=== PATIENT | male | born 1945 | race Caucasian/White ===

== ENCOUNTER 2017-09-18 11:13 | Inpatient (IN) | payer MEDICARE, OTHER ==
[2017-09-18] VITALS (7 sets, daily range): BP systolic 102–108; BP diastolic 54–61
[~2017-09-18] VITALS: Ht 167.6 cm; Wt 57.8 kg
[2017-09-18] MEDS: naloxone 2mg/2ml inj IV STA ×2 (11:39→11:48)
[2017-09-18] MEDS ORDERED: rocuronium 10mg/ml inj IV ONE ×2 (12:00→12:50)
[2017-09-18] MEDS ORDERED: naloxone 2mg/2ml inj IV STA (12:07)
[2017-09-18] MEDS ORDERED: naloxone 2mg/2ml inj ONE (12:11)
[2017-09-18 12:14] LABS: BASOPHILS % (AUTO) 0.3 % (0-1); EOSINOPHILS % (AUTO) 0 % (0-6); HEMATOCRIT 31.2 % (42.0-52.0); HEMOGLOBIN 10.4 g/dl (14.0-17.9); LYMPHOCYTES # (AUTO) 0.5 X10'3 (1.1-4.8); LYMPHOCYTES % (AUTO) 3.5 % (21-51); MEAN CORPUSCULAR HEMOGLOBIN 30.1 PG (27.0-31.0); MEAN CORPUSCULAR HGB CONC 33.3 % (33.0-36.5); MEAN CORPUSCULAR VOLUME 90.3 FL (78-98); MEAN PLATELET VOLUME 10.1 FL (7.4-10.4); MONOCYTES # (AUTO) 0.3 X10'3 (0-0.9); MONOCYTES % (AUTO) 2.6 % (2-12); NEUTROPHILS # (AUTO) 12.2 X10'3 (1.8-7.7); NEUTROPHILS % (AUTO) 93.6 % (42-75); PLATELET COUNT 167 X10'3 (140-440); RED BLOOD COUNT 3.46 X10'6 (4.70-6.10); RED CELL DISTRIBUTION WIDTH 14.4 % (11.5-14.5)
[2017-09-18] MEDS ORDERED: levoFLOXACIN-Levaquin 750MG/D5 150 ML IV STA (12:14)
[2017-09-18 12:19] LABS: INR 2.1 INR; PARTIAL THROMBOPLASTIN TIME 29 SECONDS (22-32); PROTHROMBIN TIME 20.9 SECONDS (9.0-12.0)
[2017-09-18 12:21] LABS: CLARITY,URINE CLEAR (Clear); GLUCOSE, URINE NEGATIVE (Neg); KETONES,URINE TRACE mg/dl (Neg); LEUKOCYTE ESTERASE ,URINE NEGATIVE (Neg); NITRITES, URINE NEGATIVE (Neg); OCCULT BLOOD,URINE LARGE (Neg); PROTEIN,URINE 100 mg/dl (Neg)
[2017-09-18 12:24] LABS: UA COLLECTION TYPE STRAIGHT CATH
[2017-09-18 12:25] LABS: COLOR,URINE DARK YELLOW (Yellow)
[2017-09-18 12:28] LABS: WBC,URINE 0-4 /HPF (0-4)
[2017-09-18 12:29] LABS: AMORPHOUS URATES 3+; BACTERIA,URINE FEW /HPF (Neg); MUCUS STRANDS NONE SEEN /LPF (Neg); SQUAMOUS EPITHELIAL CELL,UR FEW /LPF (FEW)
[2017-09-18] MEDS ORDERED: TETanus/Pertussis (Acell)/Diphther VAC/PF (Tdap-Adult) 0.5ml syringe IM ONE (12:30)
[2017-09-18] MEDS ORDERED: CefTRIAXone 1 gm/50ml D5W ADV 50 ML IV ONE (12:35)
[2017-09-18 12:47] LABS: ALBUMIN 3.2 G/DL (3.4-5.0); ALBUMIN/GLOBULIN RATIO 0.9 (1.1-1.5); ALKALINE PHOSPHATASE 115 IU/L (46-116); ANION GAP 20 (8-16); BILIRUBIN,TOTAL 1.5 MG/DL (0.1-1.0); BLOOD UREA NITROGEN 63 MG/DL (7-18); BUN/CREATININE RATIO 18.7 (5.4-32.0); CALCIUM 7.5 MG/DL (8.5-10.1); CHLORIDE 98 MMOL/L (99-107); CREATININE 3.37 MG/DL (0.60-1.10); GLUCOSE 87 MG/DL (70-104); POTASSIUM 4.8 MMOL/L (3.5-5.1); SODIUM 140 MMOL/L (135-145); TOTAL CARBON DIOXIDE 22.4 MMOL/L (24-32); TOTAL PROTEIN 6.7 G/DL (6.4-8.2); eGFR 18 ML/MIN
[2017-09-18] MEDS ORDERED: etomidate 2mg/ml inj. IV ONE (12:50)
[2017-09-18 12:57] LABS: URINE AMPHETAMINE SCREEN NEGATIVE (Neg); URINE BARBITUATE SCREEN NEGATIVE (Neg); URINE BENZODIAZEPINES SCREEN POSITIVE (Neg); URINE CANNABINOID SCREEN NEGATIVE (Neg); URINE COCAINE SCREEN NEGATIVE (Neg); URINE METHADONE SCREEN POSITIVE (Neg); URINE OPIATE SCREEN NEGATIVE (Neg); URINE PHENCYCLIDINE SCREEN NEGATIVE (Neg)
[2017-09-18] MEDS ORDERED: normal saline 1000ml 1,000 ML IV ONE (13:00)
[2017-09-18 13:09] LABS: LACTIC SEPSIS 6.8 MMOL/L (0.4-2.0)
[2017-09-18 13:11] LABS: ALANINE AMINOTRANSFERASE 4931 U/L (12-78); ASPARTATE AMINO TRANSFERASE > 7000 U/L (10-37)
[2017-09-18 13:12] LABS: ETHANOL < 0.010 GM/DL (0.0-0.010); MAGNESIUM 2.4 MG/DL (1.5-2.4)
[2017-09-18] MEDS ORDERED: normal saline 1000ML IV soln IVB ONE (13:15)
[2017-09-18] MEDS ORDERED: midazolam 100mg in NS 100ml 100 ML IV ONE (13:15)
[2017-09-18 13:40] LABS: ABG BASE EXCESS -0.6 mmol/L (-2.0-3.0); ABG HCO3 22.1 mmol/L (22.0-26.0); ABG PCO2 (T) 30.7 mmHg (35.0-48.0); ABG PH (T) 7.476 (7.350-7.450); ABG PO2 (T) 211.8 mmHg (83-108); FCOHb 0.2 % (0.5-1.5); FMetHb 0.3 % (0.3-1.12); FO2Hb 98.5 % (94-100); MINUTE VOLUME 7 L/min; PEEP 5 cm H2O; RESPIRATORY RATE 18 b/min; TIDAL VOLUME 400 mL; TOTAL HEMOGLOBIN 11.9 G/dl (14.0-18.0)
[2017-09-18] MEDS ORDERED: magnesium Cl slow-release 64mg tablet PO PRN (13:55)
[2017-09-18] MEDS ORDERED: mag hydrox/Alum hydrox/simeth 30ml oral suspension PO PRN (13:55)
[2017-09-18] MEDS ORDERED: magnesium 2GM in 50ml NS 50 ML IV PRN (13:55)
[2017-09-18] MEDS ORDERED: potassium Cl 20 mEq SR tablet PO PRN ×2 (13:55)
[2017-09-18] MEDS ORDERED: magnesium 4gm in 100ml NS 100 ML IV PRN (13:55)
[2017-09-18] MEDS ORDERED: potassium Cl 40MEQ/NS 500ml 500 ML IV PRN ×2 (13:55)
[2017-09-18] MEDS ORDERED: diphenhydrAMINE 25mg capsule PO PRN (13:55)
[2017-09-18] MEDS ORDERED: midazolam 100mg in NS 100ml 100 ML IV PRN (13:59)
[2017-09-18] MEDS: FENTANYL-0.9 % NACL/PF 100 ML IV PRN ×2 (15:07→23:08)
[2017-09-18] MEDS: normal saline 1000ml 1,000 ML IV SCH (16:05)
[2017-09-18] MEDS ORDERED: KEP500T PO (18:31)
[2017-09-18] MEDS ORDERED: METH5TAB2 PO (18:31)
[2017-09-18] MEDS ORDERED: OXYC-658 PO (18:31)
[2017-09-18] MEDS ORDERED: FURO-150 PO (18:31)
[2017-09-18] MEDS ORDERED: DULO60CA45 PO (18:31)
[2017-09-18] MEDS ORDERED: heparin, porcine 5000 units/ml vial SQ SCH (20:00)
[2017-09-18] MEDS: heparin, porcine 5000 units/ml vial SQ SCH (20:00)
[2017-09-18] MEDS ORDERED: normal saline 500ml IV soln 1,000 ML IV ONE (21:30)
[2017-09-19] VITALS (24 sets, daily range): BP systolic 86–135; BP diastolic 47–71
[2017-09-19 01:52] LABS: BASOPHILS % (AUTO) 0.5 % (0-1); EOSINOPHILS # (AUTO) 0.1 X10'3 (0-0.9); EOSINOPHILS % (AUTO) 0.9 % (0-6); HEMATOCRIT 25.9 % (42.0-52.0); HEMOGLOBIN 8.9 g/dl (14.0-17.9); LYMPHOCYTES # (AUTO) 0.4 X10'3 (1.1-4.8); LYMPHOCYTES % (AUTO) 6.5 % (21-51); MEAN CORPUSCULAR HEMOGLOBIN 30.5 PG (27.0-31.0); MEAN CORPUSCULAR HGB CONC 34.3 % (33.0-36.5); MEAN CORPUSCULAR VOLUME 89.1 FL (78-98); MEAN PLATELET VOLUME 9.3 FL (7.4-10.4); MONOCYTES # (AUTO) 0.1 X10'3 (0-0.9); MONOCYTES % (AUTO) 1.8 % (2-12); NEUTROPHILS # (AUTO) 6.1 X10'3 (1.8-7.7); NEUTROPHILS % (AUTO) 90.3 % (42-75); PLATELET COUNT 102 X10'3 (140-440); RED BLOOD COUNT 2.91 X10'6 (4.70-6.10); RED CELL DISTRIBUTION WIDTH 13.3 % (11.5-14.5); WHITE BLOOD COUNT 6.7 X10'3 (4.5-11.0)
[2017-09-19 02:01] LABS: PARTIAL THROMBOPLASTIN TIME 31 SECONDS (22-32); PROTHROMBIN TIME 20.6 SECONDS (9.0-12.0)
[2017-09-19 02:08] LABS: ALBUMIN 2.5 G/DL (3.4-5.0); ALBUMIN/GLOBULIN RATIO 0.9 (1.1-1.5); ALKALINE PHOSPHATASE 98 IU/L (46-116); ANION GAP 8 (8-16); BILIRUBIN,TOTAL 1.1 MG/DL (0.1-1.0); BLOOD UREA NITROGEN 67 MG/DL (7-18); BUN/CREATININE RATIO 25.7 (5.4-32.0); CALCIUM 6.7 MG/DL (8.5-10.1); CHLORIDE 108 MMOL/L (99-107); CREATININE 2.61 MG/DL (0.60-1.10); GLUCOSE 88 MG/DL (70-104); MAGNESIUM 2.2 MG/DL (1.5-2.4); POTASSIUM 3.3 MMOL/L (3.5-5.1); SODIUM 145 MMOL/L (135-145); TOTAL CARBON DIOXIDE 28.8 MMOL/L (24-32); TOTAL PROTEIN 5.2 G/DL (6.4-8.2); eGFR 24 ML/MIN
[2017-09-19 02:34] LABS: ASPARTATE AMINO TRANSFERASE > 7000 U/L (10-37)
[2017-09-19 02:35] LABS: ALANINE AMINOTRANSFERASE 5245 U/L (12-78)
[2017-09-19] MEDS ORDERED: calcium gluconate inj. 1 GM in normal saline 100ml IV soln 90 ML IV ONE (02:35)
[2017-09-19] MEDS ORDERED: potassium Cl 40MEQ/NS 500ml 500 ML IV ONE (02:40)
[2017-09-19] MEDS ORDERED: calcium chloride 100 MG/1 ML inj IV ONE (02:40)
[2017-09-19] MEDS ORDERED: calcium gluconate 0.46mEq/mL (100mg/mL) inj IV ONE (02:41)
[2017-09-19] MEDS: normal saline 1000ml 1,000 ML IV SCH ×3 (02:59→19:58)
[2017-09-19] MEDS: FENTANYL-0.9 % NACL/PF 100 ML IV PRN ×3 (03:03→17:56)
[2017-09-19] MEDS: midazolam 100mg in NS 100ml 100 ML IV PRN (03:03)
[2017-09-19 03:40] LABS: ALLEN'S TEST Positive; PATIENT TEMPERATURE 36.9
[2017-09-19 03:41] LABS: ABG BASE EXCESS 0.6 mmol/L (-2.0-3.0); ABG HCO3 24.7 mmol/L (22.0-26.0); ABG OXYGEN SATURATION 94.9 % (95-98); ABG PCO2 (T) 37.3 mmHg (35.0-48.0); ABG PH (T) 7.437 (7.350-7.450); ABG PO2 (T) 82.7 mmHg (83-108); FCOHb 0.3 % (0.5-1.5); FMetHb 0.1 % (0.3-1.12); FO2Hb 94.5 % (94-100); MINUTE VOLUME 8 L/min; PEEP 5 cm H2O; RESPIRATORY RATE 14 b/min; RESPIRATORY RATE (OBSERVED) 16 b/min; TIDAL VOLUME 450 mL; TOTAL HEMOGLOBIN 9.7 G/dl (14.0-18.0)
[2017-09-19] MEDS: levoFLOXACIN-Levaquin 500mg/D5 100 ML IV SCH (07:20)
[2017-09-19] MEDS: CefTRIAXone 1 gm/50ml D5W ADV 50 ML IV SCH (07:20)
[2017-09-19] MEDS: K and/or MAG REPLACEMENT MC SCH (07:21)
[2017-09-19] MEDS ORDERED: azithromycin/NS 500mg/250ml 250 ML IV SCH (08:00)
[2017-09-19] MEDS ORDERED: pneumococcal 23-VAL P-sac vacc 25 mcg/0.5ml vial IMVAC ONE (10:00)
[2017-09-19] MEDS: heparin, porcine 5000 units/ml vial SQ SCH ×2 (11:15→19:58)
[2017-09-19] MEDS ORDERED: pantoprazole 40 MG vial IV ONE (14:00)
[2017-09-19] MEDS: mineral oil/petrolatum ophthal oint EACHEYE SCH ×2 (14:05→19:59)
[2017-09-19 19:18] LABS: ALBUMIN 2.4 G/DL (3.4-5.0); ANION GAP 7 (8-16); BLOOD UREA NITROGEN 64 MG/DL (7-18); BUN/CREATININE RATIO 30.6 (5.4-32.0); CALCIUM 7.6 MG/DL (8.5-10.1); CHLORIDE 112 MMOL/L (99-107); CREATININE 2.09 MG/DL (0.60-1.10); GLUCOSE 83 MG/DL (70-104); POTASSIUM 3.5 MMOL/L (3.5-5.1); SODIUM 148 MMOL/L (135-145); TOTAL CARBON DIOXIDE 28.7 MMOL/L (24-32); eGFR 31 ML/MIN
[2017-09-19] MEDS: levetiracetam 250mg tablet PO SCH (19:59)
[2017-09-19 20:58] LABS: BASOPHILS % (AUTO) 0.2 % (0-1); EOSINOPHILS # (AUTO) 0.3 X10'3 (0-0.9); EOSINOPHILS % (AUTO) 5.9 % (0-6); HEMOGLOBIN 9.6 g/dl (14.0-17.9); LYMPHOCYTES # (AUTO) 0.4 X10'3 (1.1-4.8); LYMPHOCYTES % (AUTO) 6.7 % (21-51); MEAN CORPUSCULAR HEMOGLOBIN 29.8 PG (27.0-31.0); MEAN CORPUSCULAR HGB CONC 33.1 % (33.0-36.5); MEAN PLATELET VOLUME 9.1 FL (7.4-10.4); MONOCYTES # (AUTO) 0.3 X10'3 (0-0.9); MONOCYTES % (AUTO) 5.3 % (2-12); NEUTROPHILS # (AUTO) 4.5 X10'3 (1.8-7.7); NEUTROPHILS % (AUTO) 81.9 % (42-75); PLATELET COUNT 104 X10'3 (140-440); RED BLOOD COUNT 3.22 X10'6 (4.70-6.10); RED CELL DISTRIBUTION WIDTH 14.6 % (11.5-14.5); WHITE BLOOD COUNT 5.5 X10'3 (4.5-11.0)
[2017-09-19 21:11] LABS: TROPONIN I 0.06 NG/ML (0.0-0.05)
[2017-09-19 21:25] LABS: ABG BASE EXCESS -0.6 mmol/L (-2.0-3.0); ABG OXYGEN SATURATION 87.5 % (95-98); ABG PH (T) 7.398 (7.350-7.450); ABG PO2 (T) 56.5 mmHg (83-108); ALLEN'S TEST Positive; FCOHb 0.2 % (0.5-1.5); FO2Hb 87.3 % (94-100); MINUTE VOLUME 9 L/min; PATIENT TEMPERATURE 37.4; PEEP 5 cm H2O; RESPIRATORY RATE 14 b/min; RESPIRATORY RATE (OBSERVED) 17 b/min; TIDAL VOLUME 450 mL; TOTAL HEMOGLOBIN 10.5 G/dl (14.0-18.0)
[2017-09-19] MEDS ORDERED: furosemide 40mg/4ml inj IV ONE (21:30)
[2017-09-20] VITALS (24 sets, daily range): BP systolic 93–138; BP diastolic 49–69
[2017-09-20] MEDS: FENTANYL-0.9 % NACL/PF 100 ML IV PRN ×3 (00:39→17:07)
[2017-09-20] MEDS: midazolam 100mg in NS 100ml 100 ML IV PRN ×2 (00:39→19:43)
[2017-09-20] MEDS: mineral oil/petrolatum ophthal oint EACHEYE SCH ×4 (02:00→20:38)
[2017-09-20 02:31] LABS: ABG BASE EXCESS -1.6 mmol/L (-2.0-3.0); ABG HCO3 23.1 mmol/L (22.0-26.0); ABG OXYGEN SATURATION 94.7 % (95-98); ABG PCO2 (T) 39.8 mmHg (35.0-48.0); ABG PH (T) 7.384 (7.350-7.450); ABG PO2 (T) 80.9 mmHg (83-108); ALLEN'S TEST Positive; FCOHb 0.2 % (0.5-1.5); FO2Hb 94.5 % (94-100); MINUTE VOLUME 8 L/min; PATIENT TEMPERATURE 37.5; PEEP 5 cm H2O; RESPIRATORY RATE 14 b/min; RESPIRATORY RATE (OBSERVED) 16 b/min; TIDAL VOLUME 450 mL; TOTAL HEMOGLOBIN 10.5 G/dl (14.0-18.0)
[2017-09-20 03:38] LABS: BASOPHILS % (AUTO) 0 % (0-1); EOSINOPHILS # (AUTO) 0.3 X10'3 (0-0.9); EOSINOPHILS % (AUTO) 4.7 % (0-6); HEMATOCRIT 29.2 % (42.0-52.0); HEMOGLOBIN 9.6 g/dl (14.0-17.9); LYMPHOCYTES # (AUTO) 0.3 X10'3 (1.1-4.8); LYMPHOCYTES % (AUTO) 5.1 % (21-51); MEAN CORPUSCULAR HEMOGLOBIN 30.1 PG (27.0-31.0); MEAN CORPUSCULAR HGB CONC 32.9 % (33.0-36.5); MEAN CORPUSCULAR VOLUME 91.2 FL (78-98); MEAN PLATELET VOLUME 9.2 FL (7.4-10.4); MONOCYTES # (AUTO) 0.4 X10'3 (0-0.9); MONOCYTES % (AUTO) 5.5 % (2-12); NEUTROPHILS # (AUTO) 5.5 X10'3 (1.8-7.7); NEUTROPHILS % (AUTO) 84.7 % (42-75); PLATELET COUNT 101 X10'3 (140-440); RED CELL DISTRIBUTION WIDTH 14.6 % (11.5-14.5); WHITE BLOOD COUNT 6.5 X10'3 (4.5-11.0)
[2017-09-20 03:49] LABS: INR 1.5 INR; PARTIAL THROMBOPLASTIN TIME 31 SECONDS (22-32); PROTHROMBIN TIME 15.2 SECONDS (9.0-12.0)
[2017-09-20 04:00] LABS: ALANINE AMINOTRANSFERASE 3292 U/L (12-78); ALBUMIN 2.5 G/DL (3.4-5.0); ALBUMIN/GLOBULIN RATIO 0.9 (1.1-1.5); ALKALINE PHOSPHATASE 104 IU/L (46-116); ANION GAP 8 (8-16); ASPARTATE AMINO TRANSFERASE 2402 U/L (10-37); BILIRUBIN,TOTAL 1.9 MG/DL (0.1-1.0); BLOOD UREA NITROGEN 59 MG/DL (7-18); BUN/CREATININE RATIO 30.3 (5.4-32.0); CALCIUM 7.8 MG/DL (8.5-10.1); CHLORIDE 112 MMOL/L (99-107); CREATININE 1.95 MG/DL (0.60-1.10); GLUCOSE 100 MG/DL (70-104); MAGNESIUM 1.9 MG/DL (1.5-2.4); PHOSPHORUS 2.5 MG/DL (2.3-4.5); POTASSIUM 3.6 MMOL/L (3.5-5.1); PREALBUMIN 10.1 MG/DL (19-36); SODIUM 147 MMOL/L (135-145); TOTAL CARBON DIOXIDE 27.4 MMOL/L (24-32); TOTAL PROTEIN 5.4 G/DL (6.4-8.2); TROPONIN I 0.04 NG/ML (0.0-0.05); eGFR 34 ML/MIN
[2017-09-20] MEDS: normal saline 1000ml 1,000 ML IV SCH ×2 (04:37→17:08)
[2017-09-20] MEDS ORDERED: potassium Cl 40MEQ/NS 500ml 500 ML IV ONE (04:50)
[2017-09-20] MEDS: K and/or MAG REPLACEMENT MC SCH (08:00)
[2017-09-20] MEDS: CefTRIAXone 1 gm/50ml D5W ADV 50 ML IV SCH (08:44)
[2017-09-20] MEDS: levoFLOXACIN-Levaquin 500mg/D5 100 ML IV SCH (08:44)
[2017-09-20] MEDS: pantoprazole 40 MG vial IV SCH (08:45)
[2017-09-20] MEDS: heparin, porcine 5000 units/ml vial SQ SCH ×2 (08:45→20:38)
[2017-09-20] MEDS: duloxetine 30mg CAPSULE.DR PO SCH (08:45)
[2017-09-20] MEDS: levetiracetam 250mg tablet PO SCH ×2 (08:45→20:38)
[2017-09-20] MEDS: methadone 10mg tablet PO SCH (08:45)
[2017-09-20 16:50] LABS: MAGNESIUM 1.7 MG/DL (1.5-2.4); PHOSPHORUS 2.2 MG/DL (2.3-4.5); POTASSIUM 3.5 MMOL/L (3.5-5.1)
[2017-09-21] VITALS (24 sets, daily range): BP systolic 113–142; BP diastolic 50–72
[2017-09-21] MEDS: FENTANYL-0.9 % NACL/PF 100 ML IV PRN (00:26)
[2017-09-21] MEDS: normal saline 1000ml 1,000 ML IV SCH ×2 (01:51→12:09)
[2017-09-21 02:46] LABS: ABG BASE EXCESS 0.6 mmol/L (-2.0-3.0); ABG HCO3 25.4 mmol/L (22.0-26.0); ABG OXYGEN SATURATION 92.7 % (95-98); ABG PCO2 (T) 43.6 mmHg (35.0-48.0); ABG PH (T) 7.387 (7.350-7.450); ABG PO2 (T) 70.6 mmHg (83-108); FCOHb 0.2 % (0.5-1.5); FO2Hb 92.5 % (94-100); MINUTE VOLUME 8 L/min; PATIENT TEMPERATURE 38.2; PEEP 5 cm H2O; RESPIRATORY RATE 12 b/min; RESPIRATORY RATE (OBSERVED) 16 b/min; TIDAL VOLUME 450 mL; TOTAL HEMOGLOBIN 9.9 G/dl (14.0-18.0)
[2017-09-21] MEDS: mineral oil/petrolatum ophthal oint EACHEYE SCH ×4 (03:23→21:05)
[2017-09-21 03:35] LABS: BASOPHILS % (AUTO) 0 % (0-1); EOSINOPHILS # (AUTO) 0.3 X10'3 (0-0.9); EOSINOPHILS % (AUTO) 5.9 % (0-6); HEMATOCRIT 26.3 % (42.0-52.0); HEMOGLOBIN 8.7 g/dl (14.0-17.9); LYMPHOCYTES # (AUTO) 0.4 X10'3 (1.1-4.8); LYMPHOCYTES % (AUTO) 6.6 % (21-51); MEAN CORPUSCULAR HEMOGLOBIN 30.2 PG (27.0-31.0); MEAN CORPUSCULAR VOLUME 91.4 FL (78-98); MONOCYTES # (AUTO) 0.5 X10'3 (0-0.9); MONOCYTES % (AUTO) 7.8 % (2-12); NEUTROPHILS # (AUTO) 4.6 X10'3 (1.8-7.7); NEUTROPHILS % (AUTO) 79.7 % (42-75); PLATELET COUNT 70 X10'3 (140-440); RED BLOOD COUNT 2.88 X10'6 (4.70-6.10); RED CELL DISTRIBUTION WIDTH 14.8 % (11.5-14.5); WHITE BLOOD COUNT 5.8 X10'3 (4.5-11.0)
[2017-09-21 03:47] LABS: INR 1.3 INR; PARTIAL THROMBOPLASTIN TIME 33 SECONDS (22-32)
[2017-09-21 03:55] LABS: ALANINE AMINOTRANSFERASE 1892 U/L (12-78); ALBUMIN 2.1 G/DL (3.4-5.0); ALBUMIN/GLOBULIN RATIO 0.7 (1.1-1.5); ALKALINE PHOSPHATASE 98 IU/L (46-116); ANION GAP 5 (8-16); ASPARTATE AMINO TRANSFERASE 675 U/L (10-37); BILIRUBIN,TOTAL 2.4 MG/DL (0.1-1.0); BLOOD UREA NITROGEN 51 MG/DL (7-18); BUN/CREATININE RATIO 33.1 (5.4-32.0); CALCIUM 8.1 MG/DL (8.5-10.1); CHLORIDE 116 MMOL/L (99-107); CREATININE 1.54 MG/DL (0.60-1.10); GLUCOSE 124 MG/DL (70-104); MAGNESIUM 1.6 MG/DL (1.5-2.4); PHOSPHORUS 1.8 MG/DL (2.3-4.5); POTASSIUM 3.7 MMOL/L (3.5-5.1); SODIUM 149 MMOL/L (135-145); TOTAL CARBON DIOXIDE 28.1 MMOL/L (24-32); eGFR 45 ML/MIN
[2017-09-21] MEDS: heparin, porcine 5000 units/ml vial SQ SCH ×3 (08:00→21:06)
[2017-09-21] MEDS: pantoprazole 40 MG vial IV SCH (08:10)
[2017-09-21] MEDS: methadone 10mg tablet PO SCH (08:10)
[2017-09-21] MEDS: levoFLOXACIN-Levaquin 500mg/D5 100 ML IV SCH (08:10)
[2017-09-21] MEDS: duloxetine 30mg CAPSULE.DR PO SCH (08:10)
[2017-09-21] MEDS: levetiracetam 250mg tablet PO SCH ×2 (08:11→21:05)
[2017-09-21] MEDS: K and/or MAG REPLACEMENT MC SCH (08:28)
[2017-09-21] MEDS: CefTRIAXone 1 gm/50ml D5W ADV 50 ML IV SCH (10:06)
[2017-09-21] MEDS ORDERED: sodium phosphate inj. 15 MMOL in dextrose 5%-water 150 ML IV PRN (10:19)
[2017-09-21] MEDS ORDERED: sodium phosphate inj. 30 MMOL in dextrose 5%-water 250 ML IV PRN (10:19)
[2017-09-21] MEDS ORDERED: potassium phosphate inj 15 MMOL in normal saline 250ml IV soln 245 ML IV ONE ×2 (10:55→23:10)
[2017-09-21] MEDS: furosemide 40mg/4ml inj IV SCH (15:47)
[2017-09-21] MEDS ORDERED: albumin (human) 25% 100 ML IV solution IV SCH (16:00)
[2017-09-21 16:10] LABS: ANION GAP 5 (8-16); BLOOD UREA NITROGEN 53 MG/DL (7-18); BUN/CREATININE RATIO 37.3 (5.4-32.0); CHLORIDE 115 MMOL/L (99-107); CREATININE 1.42 MG/DL (0.60-1.10); GLUCOSE 127 MG/DL (70-104); POTASSIUM 3.6 MMOL/L (3.5-5.1); SODIUM 147 MMOL/L (135-145); eGFR 49 ML/MIN
[2017-09-21 16:11] LABS: ALANINE AMINOTRANSFERASE 1618 U/L (12-78); ALBUMIN 2.2 G/DL (3.4-5.0); ALBUMIN/GLOBULIN RATIO 0.7 (1.1-1.5); ALKALINE PHOSPHATASE 107 IU/L (46-116); ASPARTATE AMINO TRANSFERASE 425 U/L (10-37); TOTAL PROTEIN 5.4 G/DL (6.4-8.2)
[2017-09-21 17:36] LABS: ABG BASE EXCESS -0.4 mmol/L (-2.0-3.0); ABG HCO3 23.4 mmol/L (22.0-26.0); ABG OXYGEN SATURATION 91.3 % (95-98); ABG PCO2 (T) 34.7 mmHg (35.0-48.0); ABG PH (T) 7.446 (7.350-7.450); ABG PO2 (T) 56.7 mmHg (83-108); ALLEN'S TEST Positive; FCOHb 0.6 % (0.5-1.5); FMetHb 0.3 % (0.3-1.12); FO2Hb 90.5 % (94-100); MINUTE VOLUME 10 L/min; RESPIRATORY RATE (OBSERVED) 18 b/min; TOTAL HEMOGLOBIN 10.2 G/dl (14.0-18.0)
[2017-09-21 19:24] LABS: BASOPHILS % (AUTO) 0.2 % (0-1); EOSINOPHILS # (AUTO) 0.4 X10'3 (0-0.9); HEMATOCRIT 27.3 % (42.0-52.0); LYMPHOCYTES # (AUTO) 0.5 X10'3 (1.1-4.8); LYMPHOCYTES % (AUTO) 6.7 % (21-51); MEAN CORPUSCULAR HEMOGLOBIN 30.1 PG (27.0-31.0); MEAN CORPUSCULAR VOLUME 91.4 FL (78-98); MONOCYTES # (AUTO) 0.6 X10'3 (0-0.9); MONOCYTES % (AUTO) 8.7 % (2-12); NEUTROPHILS # (AUTO) 5.9 X10'3 (1.8-7.7); NEUTROPHILS % (AUTO) 79.4 % (42-75); PLATELET COUNT 61 X10'3 (140-440); RED BLOOD COUNT 2.99 X10'6 (4.70-6.10); RED CELL DISTRIBUTION WIDTH 15.1 % (11.5-14.5); WHITE BLOOD COUNT 7.4 X10'3 (4.5-11.0)
[2017-09-21 19:42] LABS: ALANINE AMINOTRANSFERASE 1388 U/L (12-78); ALBUMIN 2.8 G/DL (3.4-5.0); ALBUMIN/GLOBULIN RATIO 0.9 (1.1-1.5); ALKALINE PHOSPHATASE 101 IU/L (46-116); ANION GAP 4 (8-16); ASPARTATE AMINO TRANSFERASE 318 U/L (10-37); BILIRUBIN,TOTAL 3.4 MG/DL (0.1-1.0); BLOOD UREA NITROGEN 53 MG/DL (7-18); BUN/CREATININE RATIO 36.3 (5.4-32.0); CALCIUM 8.2 MG/DL (8.5-10.1); CHLORIDE 114 MMOL/L (99-107); CREATININE 1.46 MG/DL (0.60-1.10); GLUCOSE 120 MG/DL (70-104); MAGNESIUM 1.6 MG/DL (1.5-2.4); POTASSIUM 3.4 MMOL/L (3.5-5.1); SODIUM 149 MMOL/L (135-145); TOTAL PROTEIN 5.8 G/DL (6.4-8.2); eGFR 47 ML/MIN
[2017-09-21] MEDS ORDERED: magnesium 2GM in 50ml NS 50 ML IV PRN (20:00)
[2017-09-21] MEDS ORDERED: magnesium 4gm in 100ml NS 100 ML IV PRN (20:00)
[2017-09-21] MEDS ORDERED: potassium Cl 20 mEq SR tablet PO PRN ×2 (20:00)
[2017-09-21] MEDS ORDERED: magnesium Cl slow-release 64mg tablet PO PRN (20:00)
[2017-09-21] MEDS ORDERED: potassium Cl 40MEQ/250ML bag 250 ML IV PRN ×2 (20:00)
[2017-09-21] MEDS ORDERED: potassium Cl 40MEQ/NS 500ml 500 ML IV PRN ×2 (20:00)
[2017-09-21] MEDS: lactobacillus rhamnosus 10,000 MMU CELLS/CAPSULE PO SCH (21:05)
[2017-09-21 23:15] LABS: TROPONIN I 0.04 NG/ML (0.0-0.05)
[2017-09-22] VITALS (24 sets, daily range): BP systolic 111–136; BP diastolic 6–67
[2017-09-22 00:16] LABS: OXYGEN SATURATION (MIXED VEN) 72.7 % (60-80); PO2 MIXED VENOUS (TEMP COR) 37.4 mmHg (35-46)
[2017-09-22 00:20] LABS: ABG BASE EXCESS 1.1 mmol/L (-2.0-3.0); ABG HCO3 24.9 mmol/L (22.0-26.0); ABG OXYGEN SATURATION 96.8 % (95-98); ABG PCO2 (T) 36.9 mmHg (35.0-48.0); ABG PH (T) 7.448 (7.350-7.450); FCOHb 0.4 % (0.5-1.5); FMetHb 0.1 % (0.3-1.12); FO2Hb 96.3 % (94-100); MINUTE VOLUME 9 L/min; PATIENT TEMPERATURE 37.3; PEEP 5 cm H2O; RESPIRATORY RATE 0 b/min; RESPIRATORY RATE (OBSERVED) 11 b/min; TIDAL VOLUME 716 mL; TOTAL HEMOGLOBIN 9.5 G/dl (14.0-18.0)
[2017-09-22] MEDS ORDERED: atropine 1 MG/1 ML vial IV ONE (00:50)
[2017-09-22] MEDS: atropine 0.1mg/ml 10ml syringe ONE ×2 (01:01→01:03)
[2017-09-22] MEDS: mineral oil/petrolatum ophthal oint EACHEYE SCH ×4 (02:00→21:02)
[2017-09-22 03:35] LABS: ABG BASE EXCESS 2.1 mmol/L (-2.0-3.0); ABG HCO3 25.7 mmol/L (22.0-26.0); ABG OXYGEN SATURATION 97.5 % (95-98); ABG PCO2 (T) 36.1 mmHg (35.0-48.0); ABG PO2 (T) 96.3 mmHg (83-108); FCOHb 0.3 % (0.5-1.5); FMetHb 0.3 % (0.3-1.12); FO2Hb 96.9 % (94-100); MINUTE VOLUME 9 L/min; PATIENT TEMPERATURE 37.1; PEEP 5 cm H2O; RESPIRATORY RATE 0 b/min; RESPIRATORY RATE (OBSERVED) 13 b/min; TIDAL VOLUME 696 mL; TOTAL HEMOGLOBIN 9.5 G/dl (14.0-18.0)
[2017-09-22 04:14] LABS: BASOPHILS % (AUTO) 0.6 % (0-1); EOSINOPHILS # (AUTO) 0.5 X10'3 (0-0.9); EOSINOPHILS % (AUTO) 6.3 % (0-6); HEMATOCRIT 27.2 % (42.0-52.0); HEMOGLOBIN 8.9 g/dl (14.0-17.9); LYMPHOCYTES # (AUTO) 0.6 X10'3 (1.1-4.8); LYMPHOCYTES % (AUTO) 8.4 % (21-51); MEAN CORPUSCULAR HEMOGLOBIN 29.7 PG (27.0-31.0); MEAN CORPUSCULAR HGB CONC 32.7 % (33.0-36.5); MEAN CORPUSCULAR VOLUME 90.9 FL (78-98); MONOCYTES # (AUTO) 0.7 X10'3 (0-0.9); MONOCYTES % (AUTO) 9.7 % (2-12); NEUTROPHILS # (AUTO) 5.6 X10'3 (1.8-7.7); PLATELET COUNT 56 X10'3 (140-440); RED BLOOD COUNT 2.99 X10'6 (4.70-6.10); RED CELL DISTRIBUTION WIDTH 15.3 % (11.5-14.5); WHITE BLOOD COUNT 7.5 X10'3 (4.5-11.0)
[2017-09-22] MEDS ORDERED: atropine 0.1mg/ml 10ml syringe IV ONE (04:30)
[2017-09-22] MEDS ORDERED: atropine 0.1mg/ml 10ml syringe ONE (04:31)
[2017-09-22 04:32] LABS: ALANINE AMINOTRANSFERASE 1160 U/L (12-78); ALBUMIN 2.6 G/DL (3.4-5.0); ALBUMIN/GLOBULIN RATIO 0.8 (1.1-1.5); ALKALINE PHOSPHATASE 91 IU/L (46-116); ANION GAP 5 (8-16); ASPARTATE AMINO TRANSFERASE 220 U/L (10-37); BILIRUBIN,TOTAL 2.7 MG/DL (0.1-1.0); BLOOD UREA NITROGEN 48 MG/DL (7-18); BUN/CREATININE RATIO 36.4 (5.4-32.0); CALCIUM 8.5 MG/DL (8.5-10.1); CHLORIDE 115 MMOL/L (99-107); CREATININE 1.32 MG/DL (0.60-1.10); GLUCOSE 96 MG/DL (70-104); MAGNESIUM 1.5 MG/DL (1.5-2.4); PHOSPHORUS 2.1 MG/DL (2.3-4.5); POTASSIUM 3.7 MMOL/L (3.5-5.1); SODIUM 150 MMOL/L (135-145); TOTAL CARBON DIOXIDE 30.2 MMOL/L (24-32); TOTAL PROTEIN 5.7 G/DL (6.4-8.2); eGFR 53 ML/MIN
[2017-09-22 04:41] LABS: INR 1.2 INR; PROTHROMBIN TIME 12.5 SECONDS (9.0-12.0)
[2017-09-22] MEDS ORDERED: K and/or MAG REPLACEMENT MC SCH (08:00)
[2017-09-22] MEDS: K and/or MAG REPLACEMENT MC SCH (08:00)
[2017-09-22] MEDS: duloxetine 30mg CAPSULE.DR PO SCH (08:16)
[2017-09-22] MEDS: pantoprazole 40 MG vial IV SCH (08:17)
[2017-09-22] MEDS: levetiracetam 250mg tablet PO SCH ×2 (08:17→21:00)
[2017-09-22] MEDS: CefTRIAXone 1 gm/50ml D5W ADV 50 ML IV SCH (08:17)
[2017-09-22] MEDS: lactobacillus rhamnosus 10,000 MMU CELLS/CAPSULE PO SCH ×2 (08:17→21:00)
[2017-09-22] MEDS: furosemide 40mg/4ml inj IV SCH ×3 (08:17→16:08)
[2017-09-22] MEDS: thiamine inj. 100 MG, magnesium sulf injection 2 GM, MVI, adult No.4 with vit. K 10 ML ... IV SCH ×4 (08:19)
[2017-09-22] MEDS ORDERED: metoclopramide 5 mg/ml inj IV PRN (09:30)
[2017-09-22] MEDS: heparin, porcine 5000 units/ml vial SQ SCH ×2 (09:33→21:01)
[2017-09-22] MEDS ORDERED: metoclopramide 5 mg/ml inj IV SCH (10:15)
[2017-09-22] MEDS: dextrose 5%-1/2 normal saline 1,000 ML IV SCH (12:37)
[2017-09-22] MEDS: lactulose 20gm/30ml cup PO PRN (12:38)
[2017-09-22 15:51] LABS: ALBUMIN 2.5 G/DL (3.4-5.0); ANION GAP 5 (8-16); BLOOD UREA NITROGEN 43 MG/DL (7-18); BUN/CREATININE RATIO 33.6 (5.4-32.0); CALCIUM 8.3 MG/DL (8.5-10.1); CHLORIDE 110 MMOL/L (99-107); CREATININE 1.28 MG/DL (0.60-1.10); GLUCOSE 136 MG/DL (70-104); MAGNESIUM 1.9 MG/DL (1.5-2.4); PHOSPHORUS 2.7 MG/DL (2.3-4.5); POTASSIUM 3.4 MMOL/L (3.5-5.1); SODIUM 147 MMOL/L (135-145); eGFR 55 ML/MIN
[2017-09-22] MEDS: metoclopramide 5 mg/ml inj IV SCH ×2 (16:10→21:01)
[2017-09-22] MEDS ORDERED: potassium Cl 40MEQ/250ML bag 250 ML IV PRN ×2 (16:20)
[2017-09-22] MEDS ORDERED: normal saline 250ml IV soln 250 ML IV ONE ×2 (19:20→19:25)
[2017-09-23] VITALS (24 sets, daily range): BP systolic 97–136; BP diastolic 51–69
[2017-09-23 02:45] LABS: BASOPHILS % (AUTO) 0.3 % (0-1); EOSINOPHILS # (AUTO) 0.7 X10'3 (0-0.9); EOSINOPHILS % (AUTO) 9.5 % (0-6); HEMATOCRIT 27.4 % (42.0-52.0); LYMPHOCYTES # (AUTO) 0.7 X10'3 (1.1-4.8); LYMPHOCYTES % (AUTO) 10.6 % (21-51); MEAN CORPUSCULAR HEMOGLOBIN 29.8 PG (27.0-31.0); MEAN CORPUSCULAR HGB CONC 32.8 % (33.0-36.5); MEAN CORPUSCULAR VOLUME 90.7 FL (78-98); MEAN PLATELET VOLUME 9.6 FL (7.4-10.4); MONOCYTES # (AUTO) 0.7 X10'3 (0-0.9); MONOCYTES % (AUTO) 10.7 % (2-12); NEUTROPHILS # (AUTO) 4.7 X10'3 (1.8-7.7); NEUTROPHILS % (AUTO) 68.9 % (42-75); RED BLOOD COUNT 3.03 X10'6 (4.70-6.10); RED CELL DISTRIBUTION WIDTH 15.1 % (11.5-14.5); WHITE BLOOD COUNT 6.9 X10'3 (4.5-11.0)
[2017-09-23 02:49] LABS: PLATELET COUNT 44 X10'3 (140-440)
[2017-09-23] MEDS: mineral oil/petrolatum ophthal oint EACHEYE SCH ×4 (02:54→20:37)
[2017-09-23 02:55] LABS: INR 1.1 INR; PROTHROMBIN TIME 11.3 SECONDS (9.0-12.0)
[2017-09-23] MEDS: dextrose 5%-1/2 normal saline 1,000 ML IV SCH ×3 (02:55→18:34)
[2017-09-23] MEDS: metoclopramide 5 mg/ml inj IV SCH ×2 (02:57→08:00)
[2017-09-23 02:59] LABS: ALANINE AMINOTRANSFERASE 752 U/L (12-78); ALBUMIN 2.5 G/DL (3.4-5.0); ALBUMIN/GLOBULIN RATIO 0.8 (1.1-1.5); ALKALINE PHOSPHATASE 118 IU/L (46-116); ANION GAP 6 (8-16); ASPARTATE AMINO TRANSFERASE 120 U/L (10-37); BILIRUBIN,TOTAL 1.5 MG/DL (0.1-1.0); BLOOD UREA NITROGEN 39 MG/DL (7-18); CALCIUM 8.4 MG/DL (8.5-10.1); CHLORIDE 110 MMOL/L (99-107); CREATININE 1.22 MG/DL (0.60-1.10); GLUCOSE 131 MG/DL (70-104); MAGNESIUM 1.8 MG/DL (1.5-2.4); PHOSPHORUS 2.8 MG/DL (2.3-4.5); POTASSIUM 3.5 MMOL/L (3.5-5.1); SODIUM 148 MMOL/L (135-145); TOTAL CARBON DIOXIDE 31.6 MMOL/L (24-32); TOTAL PROTEIN 5.6 G/DL (6.4-8.2); eGFR 58 ML/MIN
[2017-09-23 04:00] LABS: ABG BASE EXCESS 4.9 mmol/L (-2.0-3.0); ABG HCO3 29.3 mmol/L (22.0-26.0); ABG OXYGEN SATURATION 97.5 % (95-98); ABG PCO2 (T) 44.7 mmHg (35.0-48.0); ABG PH (T) 7.439 (7.350-7.450); ABG PO2 (T) 101.8 mmHg (83-108); ALLEN'S TEST Positive; FCOHb 0.5 % (0.5-1.5); MINUTE VOLUME 8 L/min; PEEP 5 cm H2O; RESPIRATORY RATE 0 b/min; RESPIRATORY RATE (OBSERVED) 16 b/min; TIDAL VOLUME 530 mL; TOTAL HEMOGLOBIN 10.5 G/dl (14.0-18.0)
[2017-09-23] MEDS: duloxetine 30mg CAPSULE.DR PO SCH (07:24)
[2017-09-23] MEDS: CefTRIAXone 1 gm/50ml D5W ADV 50 ML IV SCH (07:59)
[2017-09-23] MEDS: lactobacillus rhamnosus 10,000 MMU CELLS/CAPSULE PO SCH ×2 (07:59→20:38)
[2017-09-23] MEDS: pantoprazole 40 MG vial IV SCH (07:59)
[2017-09-23] MEDS: furosemide 40mg/4ml inj IV SCH ×2 (07:59)
[2017-09-23] MEDS: levetiracetam 250mg tablet PO SCH ×2 (07:59→20:38)
[2017-09-23] MEDS: K and/or MAG REPLACEMENT MC SCH (08:00)
[2017-09-23] MEDS: heparin, porcine 5000 units/ml vial SQ SCH ×2 (08:00→20:00)
[2017-09-23] MEDS: thiamine inj. 100 MG, magnesium sulf injection 2 GM, MVI, adult No.4 with vit. K 10 ML ... IV SCH ×4 (09:16)
[2017-09-23] MEDS: bisacodyl 10mg suppository rectal RC PRN (12:17)
[2017-09-23] MEDS: magnesium hydroxide 30ml (MOM) UD suspension PO PRN (12:17)
[2017-09-23] MEDS: docusate sodium 100mg/10ml UD cup PO SCH (20:37)
[2017-09-24] VITALS (24 sets, daily range): BP systolic 117–145; BP diastolic 46–75
[2017-09-24] MEDS: mineral oil/petrolatum ophthal oint EACHEYE SCH ×4 (03:33→20:00)
[2017-09-24 03:34] LABS: BASOPHILS % (AUTO) 0.2 % (0-1); EOSINOPHILS # (AUTO) 0.4 X10'3 (0-0.9); EOSINOPHILS % (AUTO) 6.1 % (0-6); HEMOGLOBIN 8.7 g/dl (14.0-17.9); LYMPHOCYTES # (AUTO) 0.7 X10'3 (1.1-4.8); LYMPHOCYTES % (AUTO) 10.2 % (21-51); MEAN CORPUSCULAR HEMOGLOBIN 30.2 PG (27.0-31.0); MEAN CORPUSCULAR HGB CONC 33.6 % (33.0-36.5); MEAN PLATELET VOLUME 9.5 FL (7.4-10.4); MONOCYTES % (AUTO) 15.5 % (2-12); NEUTROPHILS # (AUTO) 4.6 X10'3 (1.8-7.7); RED BLOOD COUNT 2.89 X10'6 (4.70-6.10); RED CELL DISTRIBUTION WIDTH 14.8 % (11.5-14.5); WHITE BLOOD COUNT 6.7 X10'3 (4.5-11.0)
[2017-09-24 03:46] LABS: PLATELET COUNT 48 X10'3 (140-440)
[2017-09-24 03:49] LABS: ALBUMIN 2.5 G/DL (3.4-5.0); ANION GAP 8 (8-16); BLOOD UREA NITROGEN 41 MG/DL (7-18); BUN/CREATININE RATIO 36.6 (5.4-32.0); CALCIUM 8.6 MG/DL (8.5-10.1); CHLORIDE 105 MMOL/L (99-107); CREATININE 1.12 MG/DL (0.60-1.10); GLUCOSE 125 MG/DL (70-104); MAGNESIUM 2.1 MG/DL (1.5-2.4); PHOSPHORUS 2.2 MG/DL (2.3-4.5); POTASSIUM 3.3 MMOL/L (3.5-5.1); PREALBUMIN 10.4 MG/DL (19-36); SODIUM 144 MMOL/L (135-145); TOTAL CARBON DIOXIDE 31.3 MMOL/L (24-32); eGFR 64 ML/MIN
[2017-09-24] MEDS: dextrose 5%-1/2 normal saline 1,000 ML IV SCH ×3 (03:55→22:05)
[2017-09-24 04:01] LABS: ABG HCO3 27.8 mmol/L (22.0-26.0); ABG OXYGEN SATURATION 97.3 % (95-98); ABG PCO2 (T) 39.7 mmHg (35.0-48.0); ABG PH (T) 7.466 (7.350-7.450); ABG PO2 (T) 96.4 mmHg (83-108); ALLEN'S TEST Positive; FCOHb 0.6 % (0.5-1.5); FMetHb 0.3 % (0.3-1.12); FO2Hb 96.4 % (94-100); MINUTE VOLUME 9 L/min; PATIENT TEMPERATURE 37.8; PEEP 5 cm H2O; RESPIRATORY RATE 0 b/min; RESPIRATORY RATE (OBSERVED) 13 b/min; TIDAL VOLUME 561 mL; TOTAL HEMOGLOBIN 9.6 G/dl (14.0-18.0)
[2017-09-24] MEDS ORDERED: potassium Cl 40MEQ/250ML bag 250 ML IV ONE (04:23)
[2017-09-24] MEDS: duloxetine 30mg CAPSULE.DR PO SCH (08:00)
[2017-09-24] MEDS: furosemide 40mg/4ml inj IV SCH (08:00)
[2017-09-24] MEDS: heparin, porcine 5000 units/ml vial SQ SCH ×2 (08:00→19:04)
[2017-09-24] MEDS: pantoprazole 40 MG vial IV SCH (08:00)
[2017-09-24] MEDS: thiamine inj. 100 MG, magnesium sulf injection 2 GM, MVI, adult No.4 with vit. K 10 ML ... IV SCH ×8 (08:01→09:01)
[2017-09-24] MEDS: levetiracetam 250mg tablet PO SCH ×2 (08:01→20:00)
[2017-09-24] MEDS: lactobacillus rhamnosus 10,000 MMU CELLS/CAPSULE PO SCH ×2 (08:01→20:00)
[2017-09-24] MEDS: docusate sodium 100mg/10ml UD cup PO SCH ×2 (08:01→20:00)
[2017-09-24] MEDS: CefTRIAXone 1 gm/50ml D5W ADV 50 ML IV SCH (08:01)
[2017-09-24] MEDS ORDERED: potassium phosphate inj 15 MMOL in normal saline 250ml IV soln 245 ML IV ONE (10:00)
[2017-09-24] MEDS ORDERED: pneumococcal 23-VAL P-sac vacc 25 mcg/0.5ml vial IMVAC ONE (16:15)
[2017-09-24] MEDS: K and/or MAG REPLACEMENT MC SCH (19:26)
[2017-09-25] VITALS (23 sets, daily range): BP systolic 119–149; BP diastolic 58–87
[2017-09-25] MEDS: mineral oil/petrolatum ophthal oint EACHEYE SCH ×4 (02:00→20:07)
[2017-09-25 02:46] LABS: BASOPHILS % (AUTO) 0.1 % (0-1); EOSINOPHILS # (AUTO) 0.4 X10'3 (0-0.9); EOSINOPHILS % (AUTO) 4.6 % (0-6); HEMOGLOBIN 8.3 g/dl (14.0-17.9); LYMPHOCYTES # (AUTO) 0.7 X10'3 (1.1-4.8); LYMPHOCYTES % (AUTO) 8.6 % (21-51); MEAN CORPUSCULAR HGB CONC 33.2 % (33.0-36.5); MEAN CORPUSCULAR VOLUME 90.2 FL (78-98); MEAN PLATELET VOLUME 10.7 FL (7.4-10.4); MONOCYTES # (AUTO) 1.2 X10'3 (0-0.9); MONOCYTES % (AUTO) 15.3 % (2-12); NEUTROPHILS # (AUTO) 5.8 X10'3 (1.8-7.7); NEUTROPHILS % (AUTO) 71.4 % (42-75); PLATELET COUNT 53 X10'3 (140-440); RED BLOOD COUNT 2.77 X10'6 (4.70-6.10); RED CELL DISTRIBUTION WIDTH 14.7 % (11.5-14.5); WHITE BLOOD COUNT 8.1 X10'3 (4.5-11.0)
[2017-09-25 03:01] LABS: ALBUMIN 2.7 G/DL (3.4-5.0); ANION GAP 5 (8-16); BLOOD UREA NITROGEN 34 MG/DL (7-18); BUN/CREATININE RATIO 31.5 (5.4-32.0); CALCIUM 8.5 MG/DL (8.5-10.1); CHLORIDE 103 MMOL/L (99-107); CREATININE 1.08 MG/DL (0.60-1.10); GLUCOSE 144 MG/DL (70-104); MAGNESIUM 1.9 MG/DL (1.5-2.4); PHOSPHORUS 2.2 MG/DL (2.3-4.5); SODIUM 139 MMOL/L (135-145); TOTAL CARBON DIOXIDE 30.7 MMOL/L (24-32); eGFR 67 ML/MIN
[2017-09-25 03:05] LABS: POTASSIUM 2.9 MMOL/L (3.5-5.1)
[2017-09-25] MEDS ORDERED: potassium Cl 40MEQ/250ML bag 250 ML IV ONE (03:15)
[2017-09-25 03:55] LABS: ABG BASE EXCESS 2.7 mmol/L (-2.0-3.0); ABG HCO3 24.8 mmol/L (22.0-26.0); ABG OXYGEN SATURATION 97.6 % (95-98); ABG PCO2 (T) 30.2 mmHg (35.0-48.0); ABG PH (T) 7.535 (7.350-7.450); ABG PO2 (T) 98.2 mmHg (83-108); ALLEN'S TEST Positive; FCOHb 0.3 % (0.5-1.5); FMetHb 0.3 % (0.3-1.12); MINUTE VOLUME 13 L/min; PEEP 5 cm H2O; RESPIRATORY RATE 0 b/min; RESPIRATORY RATE (OBSERVED) 18 b/min; TIDAL VOLUME 668 mL; TOTAL HEMOGLOBIN 9.3 G/dl (14.0-18.0)
[2017-09-25] MEDS: K and/or MAG REPLACEMENT MC SCH (08:00)
[2017-09-25] MEDS: duloxetine 30mg CAPSULE.DR PO SCH (08:00)
[2017-09-25] MEDS: CefTRIAXone inj 1,000 MG in normal saline 100ml IV soln 100 ML IV SCH (08:59)
[2017-09-25] MEDS: docusate sodium 100mg/10ml UD cup PO SCH ×2 (08:59→20:06)
[2017-09-25] MEDS: thiamine inj. 100 MG, magnesium sulf injection 2 GM, MVI, adult No.4 with vit. K 10 ML ... IV SCH ×4 (08:59)
[2017-09-25] MEDS: levetiracetam 250mg tablet PO SCH ×2 (09:00→20:05)
[2017-09-25] MEDS: pantoprazole 40 MG vial IV SCH (09:00)
[2017-09-25] MEDS: heparin, porcine 5000 units/ml vial SQ SCH ×2 (09:00→20:00)
[2017-09-25] MEDS: furosemide 40mg/4ml inj IV SCH (09:00)
[2017-09-25] MEDS: lactobacillus rhamnosus 10,000 MMU CELLS/CAPSULE PO SCH ×2 (09:00→20:04)
[2017-09-25] MEDS ORDERED: potassium phosphate inj 15 MMOL in normal saline 250ml IV soln 245 ML IV ONE (09:40)
[2017-09-25] MEDS: methadone 10mg tablet PO SCH (14:10)
[2017-09-25] MEDS: dextrose 5%-1/2 normal saline 1,000 ML IV SCH ×2 (20:05→20:30)
[2017-09-25] MEDS: ALPRAZolam 0.25mg tablet PO PRN (20:05)
[2017-09-26] VITALS (23 sets, daily range): BP systolic 98–157; BP diastolic 54–81
[2017-09-26] MEDS: mineral oil/petrolatum ophthal oint EACHEYE SCH ×4 (02:00→19:38)
[2017-09-26 05:08] LABS: BASOPHILS % (AUTO) 0.4 % (0-1); EOSINOPHILS # (AUTO) 0.3 X10'3 (0-0.9); EOSINOPHILS % (AUTO) 4.2 % (0-6); HEMATOCRIT 25.2 % (42.0-52.0); HEMOGLOBIN 8.4 g/dl (14.0-17.9); LYMPHOCYTES # (AUTO) 0.7 X10'3 (1.1-4.8); LYMPHOCYTES % (AUTO) 11.7 % (21-51); MEAN CORPUSCULAR HEMOGLOBIN 30.1 PG (27.0-31.0); MEAN CORPUSCULAR HGB CONC 33.5 % (33.0-36.5); MEAN CORPUSCULAR VOLUME 89.9 FL (78-98); MEAN PLATELET VOLUME 11.1 FL (7.4-10.4); MONOCYTES % (AUTO) 15.7 % (2-12); NEUTROPHILS # (AUTO) 4.1 X10'3 (1.8-7.7); PLATELET COUNT 79 X10'3 (140-440); RED CELL DISTRIBUTION WIDTH 15.2 % (11.5-14.5); WHITE BLOOD COUNT 6.1 X10'3 (4.5-11.0)
[2017-09-26 05:34] LABS: ALBUMIN 2.6 G/DL (3.4-5.0); ANION GAP 4 (8-16); BLOOD UREA NITROGEN 24 MG/DL (7-18); BUN/CREATININE RATIO 24.5 (5.4-32.0); CALCIUM 8.5 MG/DL (8.5-10.1); CHLORIDE 106 MMOL/L (99-107); CREATININE 0.98 MG/DL (0.60-1.10); GLUCOSE 101 MG/DL (70-104); MAGNESIUM 2.1 MG/DL (1.5-2.4); PHOSPHORUS 3.3 MG/DL (2.3-4.5); POTASSIUM 3.9 MMOL/L (3.5-5.1); SODIUM 139 MMOL/L (135-145); TOTAL CARBON DIOXIDE 28.6 MMOL/L (24-32); eGFR 75 ML/MIN
[2017-09-26] MEDS: K and/or MAG REPLACEMENT MC SCH (07:08)
[2017-09-26] MEDS: dextrose 5%-1/2 normal saline 1,000 ML IV SCH ×3 (07:31→21:34)
[2017-09-26] MEDS: heparin, porcine 5000 units/ml vial SQ SCH ×2 (08:00→20:05)
[2017-09-26] MEDS: lactobacillus rhamnosus 10,000 MMU CELLS/CAPSULE PO SCH ×2 (08:59→20:00)
[2017-09-26] MEDS: duloxetine 30mg CAPSULE.DR PO SCH (08:59)
[2017-09-26] MEDS: levetiracetam 250mg tablet PO SCH ×2 (08:59→20:01)
[2017-09-26] MEDS: furosemide 40mg/4ml inj IV SCH (09:00)
[2017-09-26] MEDS: ALPRAZolam 0.25mg tablet PO PRN (09:00)
[2017-09-26] MEDS: methadone 10mg tablet PO SCH (09:00)
[2017-09-26] MEDS: pantoprazole 40 MG vial IV SCH (09:00)
[2017-09-26] MEDS: CefTRIAXone inj 1,000 MG in normal saline 100ml IV soln 100 ML IV SCH (09:03)
[2017-09-26] MEDS: docusate sodium 100mg/10ml UD cup PO SCH (09:26)
[2017-09-26] MEDS: docusate sod 100mg capsule PO SCH (20:00)
[2017-09-26] MEDS: ALPRAZolam 0.5mg tablet PO SCH (20:01)
[2017-09-27] VITALS (22 sets, daily range): BP systolic 101–135; BP diastolic 54–85
[2017-09-27] MEDS: mineral oil/petrolatum ophthal oint EACHEYE SCH ×3 (02:00→14:00)
[2017-09-27 02:51] LABS: ANION GAP 4 (8-16); BLOOD UREA NITROGEN 21 MG/DL (7-18); BUN/CREATININE RATIO 18.4 (5.4-32.0); CHLORIDE 104 MMOL/L (99-107); CREATININE 1.14 MG/DL (0.60-1.10); GLUCOSE 92 MG/DL (70-104); MAGNESIUM 1.8 MG/DL (1.5-2.4); PHOSPHORUS 3.6 MG/DL (2.3-4.5); POTASSIUM 4.1 MMOL/L (3.5-5.1); PREALBUMIN 11.5 MG/DL (19-36); SODIUM 140 MMOL/L (135-145); TOTAL CARBON DIOXIDE 32.2 MMOL/L (24-32); eGFR 63 ML/MIN
[2017-09-27 02:56] LABS: BASOPHILS % (AUTO) 0.3 % (0-1); EOSINOPHILS # (AUTO) 0.3 X10'3 (0-0.9); EOSINOPHILS % (AUTO) 5.4 % (0-6); HEMATOCRIT 28.6 % (42.0-52.0); HEMOGLOBIN 9.4 g/dl (14.0-17.9); LYMPHOCYTES # (AUTO) 0.7 X10'3 (1.1-4.8); LYMPHOCYTES % (AUTO) 12.7 % (21-51); MEAN CORPUSCULAR HGB CONC 32.9 % (33.0-36.5); MEAN CORPUSCULAR VOLUME 91.4 FL (78-98); MEAN PLATELET VOLUME 10.8 FL (7.4-10.4); MONOCYTES # (AUTO) 0.8 X10'3 (0-0.9); MONOCYTES % (AUTO) 14.4 % (2-12); NEUTROPHILS # (AUTO) 3.9 X10'3 (1.8-7.7); NEUTROPHILS % (AUTO) 67.2 % (42-75); PLATELET COUNT 119 X10'3 (140-440); RED BLOOD COUNT 3.12 X10'6 (4.70-6.10); RED CELL DISTRIBUTION WIDTH 15.2 % (11.5-14.5); WHITE BLOOD COUNT 5.8 X10'3 (4.5-11.0)
[2017-09-27] MEDS: ALPRAZolam 0.5mg tablet PO SCH ×4 (03:17→16:00)
[2017-09-27 04:14] LABS: LARGE PLATELETS FEW; PLATELET ESTIMATE DECREASED
[2017-09-27] MEDS: dextrose 5%-1/2 normal saline 1,000 ML IV SCH ×2 (04:29→21:44)
[2017-09-27] MEDS: K and/or MAG REPLACEMENT MC SCH (06:50)
[2017-09-27] MEDS: pantoprazole 40 MG vial IV SCH (08:55)
[2017-09-27] MEDS: CefTRIAXone inj 1,000 MG in normal saline 100ml IV soln 100 ML IV SCH (08:55)
[2017-09-27] MEDS: heparin, porcine 5000 units/ml vial SQ SCH ×2 (08:56→21:10)
[2017-09-27] MEDS: furosemide 40mg/4ml inj IV SCH (08:56)
[2017-09-27] MEDS: lactobacillus rhamnosus 10,000 MMU CELLS/CAPSULE PO SCH ×2 (08:57→21:08)
[2017-09-27] MEDS: duloxetine 30mg CAPSULE.DR PO SCH (08:57)
[2017-09-27] MEDS: levetiracetam 250mg tablet PO SCH ×2 (08:57→21:09)
[2017-09-27] MEDS: methadone 10mg tablet PO SCH (08:57)
[2017-09-27] MEDS: docusate sod 100mg capsule PO SCH ×2 (08:58→21:10)
[2017-09-27] MEDS: thiamine inj. 100 MG, magnesium sulf injection 2 GM, MVI, adult No.4 with vit. K 10 ML ... IV SCH ×4 (09:19)
[2017-09-28] MEDS: ALPRAZolam 0.5mg tablet PO SCH ×3 (01:08→16:00)
[2017-09-28 03:00] VITALS: BP 134/64
[2017-09-28] MEDS: LORazepam 2 mg/ml vial IV PRN (03:39)
[2017-09-28 06:00] VITALS: BP 129/63
[2017-09-28 06:04] LABS: POTASSIUM 4.4 MMOL/L (3.5-5.1)
[2017-09-28] MEDS: lactobacillus rhamnosus 10,000 MMU CELLS/CAPSULE PO SCH ×2 (08:00→21:09)
[2017-09-28] MEDS: K and/or MAG REPLACEMENT MC SCH (08:00)
[2017-09-28 08:15] LABS: BASOPHILS # (AUTO) 0.1 X10'3 (0-0.2); BASOPHILS % (AUTO) 1.8 % (0-1); EOSINOPHILS # (AUTO) 0.3 X10'3 (0-0.9); EOSINOPHILS % (AUTO) 5.2 % (0-6); HEMATOCRIT 26.7 % (42.0-52.0); HEMOGLOBIN 8.7 g/dl (14.0-17.9); LYMPHOCYTES # (AUTO) 0.7 X10'3 (1.1-4.8); LYMPHOCYTES % (AUTO) 14.3 % (21-51); MEAN CORPUSCULAR HEMOGLOBIN 29.6 PG (27.0-31.0); MEAN CORPUSCULAR HGB CONC 32.7 % (33.0-36.5); MEAN CORPUSCULAR VOLUME 90.6 FL (78-98); MEAN PLATELET VOLUME 11.4 FL (7.4-10.4); MONOCYTES # (AUTO) 0.8 X10'3 (0-0.9); MONOCYTES % (AUTO) 16.9 % (2-12); NEUTROPHILS % (AUTO) 61.8 % (42-75); PLATELET COUNT 128 X10'3 (140-440); RED BLOOD COUNT 2.95 X10'6 (4.70-6.10); RED CELL DISTRIBUTION WIDTH 14.8 % (11.5-14.5); WHITE BLOOD COUNT 4.8 X10'3 (4.5-11.0)
[2017-09-28 08:24] LABS: ALANINE AMINOTRANSFERASE 187 U/L (12-78); ALBUMIN 2.8 G/DL (3.4-5.0); ALBUMIN/GLOBULIN RATIO 0.8 (1.1-1.5); ALKALINE PHOSPHATASE 130 IU/L (46-116); ANION GAP 8 (8-16); ASPARTATE AMINO TRANSFERASE 41 U/L (10-37); BILIRUBIN,TOTAL 0.8 MG/DL (0.1-1.0); BLOOD UREA NITROGEN 21 MG/DL (7-18); BUN/CREATININE RATIO 17.5 (5.4-32.0); CALCIUM 8.8 MG/DL (8.5-10.1); CHLORIDE 103 MMOL/L (99-107); GLUCOSE 86 MG/DL (70-104); PHOSPHORUS 3.4 MG/DL (2.3-4.5); SODIUM 140 MMOL/L (135-145); TOTAL CARBON DIOXIDE 28.8 MMOL/L (24-32); TOTAL PROTEIN 6.4 G/DL (6.4-8.2); eGFR 60 ML/MIN
[2017-09-28] MEDS: levetiracetam 250mg tablet PO SCH ×2 (10:05→21:09)
[2017-09-28] MEDS: duloxetine 30mg CAPSULE.DR PO SCH (10:07)
[2017-09-28] MEDS: CefTRIAXone inj 1,000 MG in normal saline 100ml IV soln 100 ML IV SCH (10:08)
[2017-09-28] MEDS: methadone 10mg tablet PO SCH (10:11)
[2017-09-28] MEDS: docusate sod 100mg capsule PO SCH ×2 (10:11→21:09)
[2017-09-28] MEDS: pantoprazole 40 MG vial IV SCH (10:13)
[2017-09-28] MEDS: furosemide 40mg/4ml inj IV SCH (10:13)
[2017-09-28] MEDS: heparin, porcine 5000 units/ml vial SQ SCH ×2 (10:14→21:10)
[2017-09-28] MEDS: thiamine inj. 100 MG, magnesium sulf injection 2 GM, MVI, adult No.4 with vit. K 10 ML ... IV SCH ×4 (10:15)
[2017-09-28 11:00] VITALS: BP 122/62
[2017-09-28 15:00] VITALS: BP 123/60
[2017-09-28 19:00] VITALS: BP 123/61
[2017-09-28 23:00] VITALS: BP 108/55
[2017-09-29] MEDS: dextrose 5%-1/2 normal saline 1,000 ML IV SCH ×2 (02:03→20:49)
[2017-09-29 03:00] VITALS: BP 114/73
[2017-09-29] MEDS: LORazepam 2 mg/ml vial IV PRN ×2 (03:13→20:47)
[2017-09-29 06:00] VITALS: BP 105/56
[2017-09-29] MEDS: furosemide 40mg/4ml inj IV SCH ×2 (08:00→08:50)
[2017-09-29] MEDS: K and/or MAG REPLACEMENT MC SCH (08:00)
[2017-09-29] MEDS: ALPRAZolam 0.5mg tablet PO SCH ×4 (08:00→16:00)
[2017-09-29] MEDS ORDERED: duloxetine 30mg CAPSULE.DR PO ONE (08:40)
[2017-09-29] MEDS ORDERED: ALPRAZolam 0.5mg tablet ONE (08:40)
[2017-09-29] MEDS ORDERED: levetiracetam 250mg tablet ONE (08:40)
[2017-09-29] MEDS ORDERED: docusate sod 100mg capsule PO ONE (08:40)
[2017-09-29] MEDS ORDERED: lactobacillus rhamnosus 10,000 MMU CELLS/CAPSULE ONE (08:40)
[2017-09-29] MEDS ORDERED: pantoprazole 40 MG vial IV ONE (08:41)
[2017-09-29] MEDS ORDERED: furosemide 40mg/4ml inj ONE (08:41)
[2017-09-29] MEDS ORDERED: heparin, porcine 5000 units/ml vial ONE (08:41)
[2017-09-29] MEDS: duloxetine 30mg CAPSULE.DR PO SCH (08:50)
[2017-09-29] MEDS: levetiracetam 250mg tablet PO SCH ×2 (08:51→20:47)
[2017-09-29] MEDS: lactobacillus rhamnosus 10,000 MMU CELLS/CAPSULE PO SCH ×2 (08:51→20:47)
[2017-09-29] MEDS: thiamine inj. 100 MG, magnesium sulf injection 2 GM, MVI, adult No.4 with vit. K 10 ML ... IV SCH ×4 (08:51)
[2017-09-29] MEDS: CefTRIAXone inj 1,000 MG in normal saline 100ml IV soln 100 ML IV SCH (08:51)
[2017-09-29] MEDS: pantoprazole 40 MG vial IV SCH (08:51)
[2017-09-29] MEDS: docusate sod 100mg capsule PO SCH ×2 (08:51→20:47)
[2017-09-29] MEDS: heparin, porcine 5000 units/ml vial SQ SCH ×2 (08:53→20:48)
[2017-09-29] MEDS: methadone 10mg tablet PO SCH (08:55)
[2017-09-29] MEDS ORDERED: methadone 10mg tablet ONE (08:55)
[2017-09-29 11:00] VITALS: BP 115/53
[2017-09-29 15:00] VITALS: BP 114/50
[2017-09-29 19:00] VITALS: BP 120/67
[2017-09-29 22:59] VITALS: BP 122/68
[2017-09-30] VITALS (7 sets, daily range): BP systolic 100–122; BP diastolic 51–57
[2017-09-30] MEDS: K and/or MAG REPLACEMENT MC SCH (08:00)
[2017-09-30] MEDS: duloxetine 30mg CAPSULE.DR PO SCH (08:18)
[2017-09-30] MEDS: docusate sod 100mg capsule PO SCH ×2 (08:18→20:05)
[2017-09-30] MEDS: levetiracetam 250mg tablet PO SCH ×2 (08:18→20:05)
[2017-09-30] MEDS: methadone 10mg tablet PO SCH (08:18)
[2017-09-30] MEDS: lactobacillus rhamnosus 10,000 MMU CELLS/CAPSULE PO SCH ×2 (08:18→20:04)
[2017-09-30] MEDS: furosemide 20MG tablet PO SCH (08:19)
[2017-09-30 09:52] LABS: BASOPHILS % (AUTO) 0.3 % (0-1); EOSINOPHILS # (AUTO) 0.4 X10'3 (0-0.9); EOSINOPHILS % (AUTO) 5.8 % (0-6); HEMATOCRIT 27.9 % (42.0-52.0); HEMOGLOBIN 9.2 g/dl (14.0-17.9); LYMPHOCYTES # (AUTO) 0.8 X10'3 (1.1-4.8); LYMPHOCYTES % (AUTO) 12.5 % (21-51); MEAN CORPUSCULAR HEMOGLOBIN 29.6 PG (27.0-31.0); MEAN CORPUSCULAR HGB CONC 33.1 % (33.0-36.5); MEAN CORPUSCULAR VOLUME 89.3 FL (78-98); MEAN PLATELET VOLUME 10.4 FL (7.4-10.4); MONOCYTES # (AUTO) 0.5 X10'3 (0-0.9); MONOCYTES % (AUTO) 8.7 % (2-12); NEUTROPHILS # (AUTO) 4.5 X10'3 (1.8-7.7); NEUTROPHILS % (AUTO) 72.7 % (42-75); PLATELET COUNT 177 X10'3 (140-440); RED BLOOD COUNT 3.13 X10'6 (4.70-6.10); RED CELL DISTRIBUTION WIDTH 14.7 % (11.5-14.5); WHITE BLOOD COUNT 6.2 X10'3 (4.5-11.0)
[2017-09-30 10:07] LABS: ALANINE AMINOTRANSFERASE 119 U/L (12-78); ALBUMIN/GLOBULIN RATIO 0.7 (1.1-1.5); ALKALINE PHOSPHATASE 160 IU/L (46-116); ANION GAP 7 (8-16); ASPARTATE AMINO TRANSFERASE 38 U/L (10-37); BILIRUBIN,TOTAL 0.8 MG/DL (0.1-1.0); BLOOD UREA NITROGEN 15 MG/DL (7-18); BUN/CREATININE RATIO 12.8 (5.4-32.0); CHLORIDE 103 MMOL/L (99-107); CREATININE 1.17 MG/DL (0.60-1.10); GLUCOSE 83 MG/DL (70-104); POTASSIUM 4.2 MMOL/L (3.5-5.1); SODIUM 139 MMOL/L (135-145); TOTAL CARBON DIOXIDE 29.4 MMOL/L (24-32); TOTAL PROTEIN 7.1 G/DL (6.4-8.2); eGFR 61 ML/MIN
[2017-09-30] MEDS: heparin, porcine 5000 units/ml vial SQ SCH ×2 (12:17→20:05)
[2017-09-30] MEDS: dextrose 5%-1/2 normal saline 1,000 ML IV SCH (12:17)
[2017-09-30] MEDS: megestrol acetate 20mg tablet PO SCH (20:07)
[2017-10-01] MEDS: LORazepam 2 mg/ml vial IV PRN ×3 (02:46→21:00)
[2017-10-01 03:00] VITALS: BP 125/60
[2017-10-01 07:00] VITALS: BP 121/56
[2017-10-01] MEDS: lactobacillus rhamnosus 10,000 MMU CELLS/CAPSULE PO SCH ×2 (07:17→21:00)
[2017-10-01] MEDS: levetiracetam 250mg tablet PO SCH ×2 (07:17→21:01)
[2017-10-01] MEDS: docusate sod 100mg capsule PO SCH ×2 (07:17→21:01)
[2017-10-01] MEDS: duloxetine 30mg CAPSULE.DR PO SCH (07:17)
[2017-10-01] MEDS: methadone 10mg tablet PO SCH (07:17)
[2017-10-01] MEDS: furosemide 20MG tablet PO SCH (07:19)
[2017-10-01] MEDS: heparin, porcine 5000 units/ml vial SQ SCH ×2 (07:19→21:00)
[2017-10-01] MEDS: megestrol acetate 20mg tablet PO SCH ×2 (08:00→21:02)
[2017-10-01] MEDS: K and/or MAG REPLACEMENT MC SCH (08:00)
[2017-10-01 09:26] LABS: ALBUMIN 3.1 G/DL (3.4-5.0); ANION GAP 9 (8-16); BLOOD UREA NITROGEN 18 MG/DL (7-18); BUN/CREATININE RATIO 15.7 (5.4-32.0); CALCIUM 9.3 MG/DL (8.5-10.1); CHLORIDE 105 MMOL/L (99-107); CREATININE 1.15 MG/DL (0.60-1.10); GLUCOSE 76 MG/DL (70-104); SODIUM 141 MMOL/L (135-145); TOTAL CARBON DIOXIDE 27.2 MMOL/L (24-32); eGFR 63 ML/MIN
[2017-10-01 11:00] VITALS: BP 126/66
[2017-10-01 19:00] VITALS: BP 125/63
[2017-10-01 23:00] VITALS: BP 124/59
[2017-10-02] MEDS: LORazepam 2 mg/ml vial IV PRN (01:59)
[2017-10-02 03:00] VITALS: BP 134/75
[2017-10-02 07:00] VITALS: BP 126/64
[2017-10-02] MEDS: K and/or MAG REPLACEMENT MC SCH (08:00)
[2017-10-02] MEDS: heparin, porcine 5000 units/ml vial SQ SCH ×3 (08:00→20:16)
[2017-10-02] MEDS: magnesium hydroxide 30ml (MOM) UD suspension PO PRN (08:08)
[2017-10-02] MEDS: furosemide 20MG tablet PO SCH (08:09)
[2017-10-02] MEDS: duloxetine 30mg CAPSULE.DR PO SCH (08:09)
[2017-10-02] MEDS: levetiracetam 250mg tablet PO SCH ×2 (08:09→20:16)
[2017-10-02] MEDS: lactobacillus rhamnosus 10,000 MMU CELLS/CAPSULE PO SCH ×2 (08:09→20:15)
[2017-10-02] MEDS: docusate sod 100mg capsule PO SCH ×2 (08:09→20:15)
[2017-10-02] MEDS: methadone 10mg tablet PO SCH (08:10)
[2017-10-02] MEDS: megestrol acetate 20mg tablet PO SCH ×2 (08:10→20:16)
[2017-10-02] MEDS: clonazePAM 1mg tablet PO SCH ×2 (09:25→20:15)
[2017-10-02 10:01] LABS: ALANINE AMINOTRANSFERASE 91 U/L (12-78); ALBUMIN 3.4 G/DL (3.4-5.0); ALBUMIN/GLOBULIN RATIO 0.8 (1.1-1.5); ALKALINE PHOSPHATASE 156 IU/L (46-116); ANION GAP 9 (8-16); ASPARTATE AMINO TRANSFERASE 32 U/L (10-37); BILIRUBIN,TOTAL 0.9 MG/DL (0.1-1.0); BLOOD UREA NITROGEN 16 MG/DL (7-18); BUN/CREATININE RATIO 13.8 (5.4-32.0); CALCIUM 9.7 MG/DL (8.5-10.1); CHLORIDE 104 MMOL/L (99-107); CREATININE 1.16 MG/DL (0.60-1.10); GLUCOSE 104 MG/DL (70-104); POTASSIUM 3.7 MMOL/L (3.5-5.1); SODIUM 141 MMOL/L (135-145); TOTAL CARBON DIOXIDE 28.1 MMOL/L (24-32); TOTAL PROTEIN 7.9 G/DL (6.4-8.2); eGFR 62 ML/MIN
[2017-10-02 11:00] VITALS: BP 120/59
[2017-10-02 15:00] VITALS: BP 106/58
[2017-10-02 19:00] VITALS: BP 130/68
[2017-10-02 23:00] VITALS: BP 112/51
[2017-10-03 03:00] VITALS: BP 123/56
[2017-10-03 05:05] LABS: BASOPHILS % (AUTO) 0.7 % (0-1); EOSINOPHILS # (AUTO) 0.2 X10'3 (0-0.9); EOSINOPHILS % (AUTO) 3.6 % (0-6); HEMOGLOBIN 9.7 g/dl (14.0-17.9); LYMPHOCYTES # (AUTO) 0.9 X10'3 (1.1-4.8); LYMPHOCYTES % (AUTO) 19.7 % (21-51); MEAN CORPUSCULAR HEMOGLOBIN 29.1 PG (27.0-31.0); MEAN CORPUSCULAR HGB CONC 32.4 % (33.0-36.5); MEAN CORPUSCULAR VOLUME 89.8 FL (78-98); MEAN PLATELET VOLUME 9.3 FL (7.4-10.4); MONOCYTES # (AUTO) 0.6 X10'3 (0-0.9); MONOCYTES % (AUTO) 12.9 % (2-12); NEUTROPHILS % (AUTO) 63.1 % (42-75); PLATELET COUNT 243 X10'3 (140-440); RED BLOOD COUNT 3.33 X10'6 (4.70-6.10); RED CELL DISTRIBUTION WIDTH 14.7 % (11.5-14.5); WHITE BLOOD COUNT 4.8 X10'3 (4.5-11.0)
[2017-10-03 06:35] VITALS: BP 125/67
[2017-10-03] MEDS: K and/or MAG REPLACEMENT MC SCH (08:00)
[2017-10-03] MEDS: lactobacillus rhamnosus 10,000 MMU CELLS/CAPSULE PO SCH ×2 (10:22→19:43)
[2017-10-03] MEDS: levetiracetam 250mg tablet PO SCH ×2 (10:22→19:44)
[2017-10-03] MEDS: methadone 10mg tablet PO SCH (10:23)
[2017-10-03] MEDS: docusate sod 100mg capsule PO SCH ×2 (10:23→19:43)
[2017-10-03] MEDS: duloxetine 30mg CAPSULE.DR PO SCH (10:23)
[2017-10-03] MEDS: clonazePAM 1mg tablet PO SCH ×2 (10:23→19:43)
[2017-10-03] MEDS: furosemide 20MG tablet PO SCH (10:23)
[2017-10-03] MEDS: heparin, porcine 5000 units/ml vial SQ SCH ×2 (10:24→19:44)
[2017-10-03] MEDS: megestrol acetate 20mg tablet PO SCH ×2 (10:26→19:44)
[2017-10-03 11:00] VITALS: BP 121/63
[2017-10-03] MEDS: carBAMazepine 100mg chewable tablet PO SCH ×2 (12:30→19:26)
[2017-10-03 19:00] VITALS: BP 128/77
[2017-10-03 23:00] VITALS: BP 146/80
[2017-10-04 03:00] VITALS: BP 132/74
[2017-10-04] MEDS: bisacodyl 10mg suppository rectal RC PRN (05:24)
[2017-10-04 07:00] VITALS: BP 130/71
[2017-10-04] MEDS: K and/or MAG REPLACEMENT MC SCH (08:00)
[2017-10-04] MEDS: carBAMazepine 100mg chewable tablet PO SCH ×3 (08:33→16:57)
[2017-10-04] MEDS: megestrol acetate 400mg/10ml UD oral suspension PO SCH ×2 (08:33→21:47)
[2017-10-04] MEDS: heparin, porcine 5000 units/ml vial SQ SCH ×2 (08:35→21:48)
[2017-10-04] MEDS: clonazePAM 1mg tablet PO SCH ×2 (08:36→21:46)
[2017-10-04] MEDS: furosemide 20MG tablet PO SCH (08:36)
[2017-10-04] MEDS: lactobacillus rhamnosus 10,000 MMU CELLS/CAPSULE PO SCH ×2 (08:36→21:46)
[2017-10-04] MEDS: levetiracetam 250mg tablet PO SCH ×2 (08:36→21:47)
[2017-10-04] MEDS: duloxetine 30mg CAPSULE.DR PO SCH (08:36)
[2017-10-04] MEDS: methadone 10mg tablet PO SCH (08:37)
[2017-10-04] MEDS: docusate sod 100mg capsule PO SCH ×2 (08:37→21:46)
[2017-10-04 11:00] VITALS: BP 154/78
[2017-10-04 15:00] VITALS: BP 119/75
[2017-10-04] MEDS: Protein Shake (high protein) 240ml (8oz) cup PO SCH (18:00)
[2017-10-04 19:00] VITALS: BP 119/75
[2017-10-04 23:00] VITALS: BP 115/65
[2017-10-05 03:00] VITALS: BP 145/80
[2017-10-05 07:06] VITALS: BP 140/81
[2017-10-05] MEDS: K and/or MAG REPLACEMENT MC SCH (08:00)
[2017-10-05] MEDS: docusate sod 100mg capsule PO SCH ×2 (08:17→22:13)
[2017-10-05] MEDS: megestrol acetate 400mg/10ml UD oral suspension PO SCH ×2 (08:17→22:14)
[2017-10-05] MEDS: duloxetine 30mg CAPSULE.DR PO SCH ×2 (08:18→22:13)
[2017-10-05] MEDS: clonazePAM 1mg tablet PO SCH ×2 (08:18→22:13)
[2017-10-05] MEDS: lactobacillus rhamnosus 10,000 MMU CELLS/CAPSULE PO SCH ×2 (08:18→20:00)
[2017-10-05] MEDS: furosemide 20MG tablet PO SCH (08:18)
[2017-10-05] MEDS: carBAMazepine 100mg chewable tablet PO SCH ×3 (08:18→22:15)
[2017-10-05] MEDS: levetiracetam 250mg tablet PO SCH ×2 (08:21→22:13)
[2017-10-05] MEDS: methadone 10mg tablet PO SCH (08:22)
[2017-10-05] MEDS: heparin, porcine 5000 units/ml vial SQ SCH ×2 (08:22→22:16)
[2017-10-05] MEDS: Protein Shake (high protein) 240ml (8oz) cup PO SCH ×3 (08:26→18:00)
[2017-10-05 11:00] VITALS: BP 121/61
[2017-10-05 15:00] VITALS: BP 135/80
[2017-10-05 19:00] VITALS: BP 122/74
[2017-10-05 23:00] VITALS: BP 111/74
[2017-10-06 03:00] VITALS: BP 141/71
[2017-10-06 05:29] LABS: BASOPHILS % (AUTO) 0.7 % (0-1); EOSINOPHILS # (AUTO) 0.2 X10'3 (0-0.9); EOSINOPHILS % (AUTO) 4.9 % (0-6); HEMATOCRIT 29.5 % (42.0-52.0); HEMOGLOBIN 9.7 g/dl (14.0-17.9); LYMPHOCYTES # (AUTO) 1.1 X10'3 (1.1-4.8); LYMPHOCYTES % (AUTO) 31.4 % (21-51); MEAN CORPUSCULAR HEMOGLOBIN 29.5 PG (27.0-31.0); MEAN CORPUSCULAR HGB CONC 32.8 % (33.0-36.5); MEAN CORPUSCULAR VOLUME 89.8 FL (78-98); MONOCYTES # (AUTO) 0.5 X10'3 (0-0.9); MONOCYTES % (AUTO) 15.2 % (2-12); NEUTROPHILS # (AUTO) 1.7 X10'3 (1.8-7.7); NEUTROPHILS % (AUTO) 47.8 % (42-75); PLATELET COUNT 222 X10'3 (140-440); RED BLOOD COUNT 3.29 X10'6 (4.70-6.10); RED CELL DISTRIBUTION WIDTH 14.8 % (11.5-14.5); WHITE BLOOD COUNT 3.6 X10'3 (4.5-11.0)
[2017-10-06 05:38] LABS: ALANINE AMINOTRANSFERASE 62 U/L (12-78); ALBUMIN 3.2 G/DL (3.4-5.0); ALBUMIN/GLOBULIN RATIO 0.8 (1.1-1.5); ALKALINE PHOSPHATASE 109 IU/L (46-116); ANION GAP 9 (8-16); ASPARTATE AMINO TRANSFERASE 33 U/L (10-37); BILIRUBIN,TOTAL 0.6 MG/DL (0.1-1.0); BLOOD UREA NITROGEN 20 MG/DL (7-18); BUN/CREATININE RATIO 15.7 (5.4-32.0); CALCIUM 9.3 MG/DL (8.5-10.1); CHLORIDE 107 MMOL/L (99-107); CREATININE 1.27 MG/DL (0.60-1.10); GLUCOSE 84 MG/DL (70-104); SODIUM 143 MMOL/L (135-145); TOTAL CARBON DIOXIDE 27.5 MMOL/L (24-32); TOTAL PROTEIN 7.3 G/DL (6.4-8.2); eGFR 56 ML/MIN
[2017-10-06 06:00] VITALS: BP 114/70
[2017-10-06] MEDS: Protein Shake (high protein) 240ml (8oz) cup PO SCH ×3 (08:00→17:11)
[2017-10-06] MEDS: K and/or MAG REPLACEMENT MC SCH (08:00)
[2017-10-06] MEDS: docusate sod 100mg capsule PO SCH ×2 (09:12→20:00)
[2017-10-06] MEDS: clonazePAM 1mg tablet PO SCH ×2 (09:12→21:21)
[2017-10-06] MEDS: furosemide 20MG tablet PO SCH (09:12)
[2017-10-06] MEDS: duloxetine 30mg CAPSULE.DR PO SCH ×2 (09:12→21:22)
[2017-10-06] MEDS: levetiracetam 250mg tablet PO SCH ×2 (09:12→21:21)
[2017-10-06] MEDS: carBAMazepine 100mg chewable tablet PO SCH ×3 (09:13→17:11)
[2017-10-06] MEDS: methadone 10mg tablet PO SCH (09:13)
[2017-10-06] MEDS: lactobacillus rhamnosus 10,000 MMU CELLS/CAPSULE PO SCH ×2 (09:13→21:21)
[2017-10-06] MEDS: megestrol acetate 400mg/10ml UD oral suspension PO SCH ×2 (09:14→21:23)
[2017-10-06] MEDS: heparin, porcine 5000 units/ml vial SQ SCH ×2 (09:14→21:23)
[2017-10-06 11:00] VITALS: BP 123/71
[2017-10-06] MEDS: LORazepam 1 MG tablet PO PRN (13:11)
[2017-10-06 15:00] VITALS: BP 130/81
[2017-10-06 19:00] VITALS: BP 130/85
[2017-10-06 23:00] VITALS: BP 116/90
[2017-10-07 03:06] VITALS: BP 132/72
[2017-10-07 06:00] VITALS: BP 127/69
[2017-10-07] MEDS: methadone 10mg tablet PO SCH (07:20)
[2017-10-07] MEDS: clonazePAM 1mg tablet PO SCH ×2 (07:21→20:41)
[2017-10-07] MEDS: duloxetine 30mg CAPSULE.DR PO SCH ×2 (07:21→20:41)
[2017-10-07] MEDS: lactobacillus rhamnosus 10,000 MMU CELLS/CAPSULE PO SCH ×2 (07:21→20:41)
[2017-10-07] MEDS: levetiracetam 250mg tablet PO SCH ×2 (07:21→20:41)
[2017-10-07] MEDS: furosemide 20MG tablet PO SCH (07:21)
[2017-10-07] MEDS: heparin, porcine 5000 units/ml vial SQ SCH ×2 (07:24→20:47)
[2017-10-07] MEDS: carBAMazepine 100mg chewable tablet PO SCH ×3 (07:41→17:55)
[2017-10-07] MEDS: megestrol acetate 400mg/10ml UD oral suspension PO SCH ×2 (07:41→20:41)
[2017-10-07] MEDS: acetaminophen 325mg tablet PO PRN (07:42)
[2017-10-07] MEDS: docusate sod 100mg capsule PO SCH ×2 (07:46→20:41)
[2017-10-07] MEDS: Protein Shake (high protein) 240ml (8oz) cup PO SCH ×3 (08:00→18:00)
[2017-10-07] MEDS: K and/or MAG REPLACEMENT MC SCH (08:00)
[2017-10-07] MEDS: LORazepam 1 MG tablet PO PRN ×2 (10:11→16:19)
[2017-10-07 11:00] VITALS: BP 138/78
[2017-10-07 15:00] VITALS: BP 130/83
[2017-10-07 19:00] VITALS: BP 145/81
[2017-10-07 23:00] VITALS: BP 135/81
[2017-10-08 03:00] VITALS: BP 128/81
[2017-10-08 07:00] VITALS: BP 123/84
[2017-10-08] MEDS: K and/or MAG REPLACEMENT MC SCH (08:00)
[2017-10-08] MEDS: duloxetine 30mg CAPSULE.DR PO SCH ×2 (08:00→19:18)
[2017-10-08] MEDS: Protein Shake (high protein) 240ml (8oz) cup PO SCH ×3 (08:00→18:00)
[2017-10-08] MEDS: lactobacillus rhamnosus 10,000 MMU CELLS/CAPSULE PO SCH ×2 (08:35→19:18)
[2017-10-08] MEDS: levetiracetam 250mg tablet PO SCH ×2 (08:35→19:18)
[2017-10-08] MEDS: docusate sod 100mg capsule PO SCH ×2 (08:35→19:19)
[2017-10-08] MEDS: methadone 10mg tablet PO SCH (08:36)
[2017-10-08] MEDS: megestrol acetate 400mg/10ml UD oral suspension PO SCH ×2 (08:39→19:18)
[2017-10-08] MEDS: furosemide 20MG tablet PO SCH (08:39)
[2017-10-08] MEDS: clonazePAM 1mg tablet PO SCH ×2 (08:39→19:19)
[2017-10-08] MEDS: carBAMazepine 100mg chewable tablet PO SCH ×3 (08:39→17:13)
[2017-10-08] MEDS: heparin, porcine 5000 units/ml vial SQ SCH ×2 (08:40→19:18)
[2017-10-08 11:00] VITALS: BP 143/86
[2017-10-08 14:27] LABS: ALBUMIN 3.5 G/DL (3.4-5.0); ANION GAP 13 (8-16); BLOOD UREA NITROGEN 23 MG/DL (7-18); BUN/CREATININE RATIO 16.2 (5.4-32.0); CALCIUM 9.4 MG/DL (8.5-10.1); CHLORIDE 103 MMOL/L (99-107); CREATININE 1.42 MG/DL (0.60-1.10); GLUCOSE 140 MG/DL (70-104); POTASSIUM 3.9 MMOL/L (3.5-5.1); SODIUM 140 MMOL/L (135-145); TOTAL CARBON DIOXIDE 23.6 MMOL/L (24-32); eGFR 49 ML/MIN
[2017-10-08 15:00] VITALS: BP 131/81
[2017-10-08 19:00] VITALS: BP 144/89
[2017-10-08] MEDS: thiamine 100mg tablet PO SCH (19:19)
[2017-10-08 23:00] VITALS: BP 132/88
[2017-10-09 03:00] VITALS: BP 149/82
[2017-10-09 05:24] LABS: BASOPHILS % (AUTO) 0.5 % (0-1); EOSINOPHILS # (AUTO) 0.1 X10'3 (0-0.9); EOSINOPHILS % (AUTO) 2.1 % (0-6); HEMATOCRIT 37.4 % (42.0-52.0); HEMOGLOBIN 12.4 g/dl (14.0-17.9); LYMPHOCYTES # (AUTO) 0.9 X10'3 (1.1-4.8); MEAN CORPUSCULAR HEMOGLOBIN 29.6 PG (27.0-31.0); MEAN CORPUSCULAR HGB CONC 33.1 % (33.0-36.5); MEAN CORPUSCULAR VOLUME 89.4 FL (78-98); MEAN PLATELET VOLUME 9.9 FL (7.4-10.4); MONOCYTES # (AUTO) 0.5 X10'3 (0-0.9); MONOCYTES % (AUTO) 14.8 % (2-12); NEUTROPHILS % (AUTO) 56.6 % (42-75); PLATELET COUNT 203 X10'3 (140-440); RED BLOOD COUNT 4.18 X10'6 (4.70-6.10); RED CELL DISTRIBUTION WIDTH 14.8 % (11.5-14.5); WHITE BLOOD COUNT 3.6 X10'3 (4.5-11.0)
[2017-10-09 05:36] LABS: ALBUMIN 3.7 G/DL (3.4-5.0); ANION GAP 12 (8-16); BLOOD UREA NITROGEN 22 MG/DL (7-18); BUN/CREATININE RATIO 16.1 (5.4-32.0); CHLORIDE 105 MMOL/L (99-107); CREATININE 1.37 MG/DL (0.60-1.10); GLUCOSE 92 MG/DL (70-104); SODIUM 143 MMOL/L (135-145); TOTAL CARBON DIOXIDE 26.5 MMOL/L (24-32); eGFR 51 ML/MIN
[2017-10-09 06:00] VITALS: BP 150/92
[2017-10-09] MEDS: K and/or MAG REPLACEMENT MC SCH (08:00)
[2017-10-09] MEDS: docusate sod 100mg capsule PO SCH ×2 (08:52→20:40)
[2017-10-09] MEDS: clonazePAM 1mg tablet PO SCH ×2 (08:52→20:40)
[2017-10-09] MEDS: carBAMazepine 100mg chewable tablet PO SCH ×3 (08:52→17:03)
[2017-10-09] MEDS: levetiracetam 250mg tablet PO SCH ×2 (08:52→20:40)
[2017-10-09] MEDS: folic acid 1mg tablet PO SCH (08:53)
[2017-10-09] MEDS: duloxetine 30mg CAPSULE.DR PO SCH ×2 (08:53→20:40)
[2017-10-09] MEDS: methadone 10mg tablet PO SCH (08:53)
[2017-10-09] MEDS: heparin, porcine 5000 units/ml vial SQ SCH ×2 (08:53→20:40)
[2017-10-09] MEDS: thiamine 100mg tablet PO SCH ×2 (08:53→20:40)
[2017-10-09] MEDS: Protein Shake (high protein) 240ml (8oz) cup PO SCH ×5 (08:54→21:49)
[2017-10-09] MEDS: lactobacillus rhamnosus 10,000 MMU CELLS/CAPSULE PO SCH ×2 (08:54→20:40)
[2017-10-09] MEDS: megestrol acetate 400mg/10ml UD oral suspension PO SCH ×2 (08:54→20:00)
[2017-10-09 11:00] VITALS: BP 130/88
[2017-10-09 15:00] VITALS: BP 138/120
[2017-10-09 19:00] VITALS: BP 155/117
[2017-10-09 22:00] VITALS: BP 126/76
[2017-10-10 05:35] LABS: BASOPHILS % (AUTO) 0.8 % (0-1); EOSINOPHILS # (AUTO) 0.1 X10'3 (0-0.9); EOSINOPHILS % (AUTO) 2.2 % (0-6); HEMATOCRIT 38.3 % (42.0-52.0); HEMOGLOBIN 12.7 g/dl (14.0-17.9); LYMPHOCYTES # (AUTO) 1.3 X10'3 (1.1-4.8); LYMPHOCYTES % (AUTO) 27.8 % (21-51); MEAN CORPUSCULAR HEMOGLOBIN 29.7 PG (27.0-31.0); MEAN CORPUSCULAR HGB CONC 33.1 % (33.0-36.5); MEAN CORPUSCULAR VOLUME 89.8 FL (78-98); MEAN PLATELET VOLUME 10.2 FL (7.4-10.4); MONOCYTES # (AUTO) 0.7 X10'3 (0-0.9); MONOCYTES % (AUTO) 14.1 % (2-12); NEUTROPHILS # (AUTO) 2.6 X10'3 (1.8-7.7); NEUTROPHILS % (AUTO) 55.1 % (42-75); PLATELET COUNT 183 X10'3 (140-440); RED BLOOD COUNT 4.26 X10'6 (4.70-6.10); WHITE BLOOD COUNT 4.7 X10'3 (4.5-11.0)
[2017-10-10 05:47] LABS: ALBUMIN 3.6 G/DL (3.4-5.0); ANION GAP 11 (8-16); BLOOD UREA NITROGEN 26 MG/DL (7-18); BUN/CREATININE RATIO 19.1 (5.4-32.0); CALCIUM 9.7 MG/DL (8.5-10.1); CHLORIDE 106 MMOL/L (99-107); CREATININE 1.36 MG/DL (0.60-1.10); GLUCOSE 91 MG/DL (70-104); SODIUM 142 MMOL/L (135-145); TOTAL CARBON DIOXIDE 25.5 MMOL/L (24-32); eGFR 52 ML/MIN
[2017-10-10 06:00] VITALS: BP 131/88
[2017-10-10] MEDS: K and/or MAG REPLACEMENT MC SCH (08:00)
[2017-10-10] MEDS: clonazePAM 1mg tablet PO SCH ×2 (08:20→20:00)
[2017-10-10] MEDS: methadone 10mg tablet PO SCH (08:20)
[2017-10-10] MEDS: docusate sod 100mg capsule PO SCH ×2 (08:20→20:00)
[2017-10-10] MEDS: folic acid 1mg tablet PO SCH (08:20)
[2017-10-10] MEDS: megestrol acetate 400mg/10ml UD oral suspension PO SCH ×2 (08:20→20:00)
[2017-10-10] MEDS: carBAMazepine 100mg chewable tablet PO SCH ×3 (08:20→17:53)
[2017-10-10] MEDS: levetiracetam 250mg tablet PO SCH ×2 (08:20→20:00)
[2017-10-10] MEDS: lactobacillus rhamnosus 10,000 MMU CELLS/CAPSULE PO SCH ×2 (08:20→20:00)
[2017-10-10] MEDS: duloxetine 30mg CAPSULE.DR PO SCH ×2 (08:20→20:00)
[2017-10-10] MEDS: thiamine 100mg tablet PO SCH ×2 (08:20→20:00)
[2017-10-10] MEDS: heparin, porcine 5000 units/ml vial SQ SCH ×2 (08:21→20:00)
[2017-10-10 11:00] VITALS: BP 150/112
[2017-10-10 15:00] VITALS: BP 147/94
[2017-10-10] MEDS: Protein Shake (high protein) 240ml (8oz) cup PO SCH (17:57)
[2017-10-10 19:00] VITALS: BP 147/75
[2017-10-10 23:00] VITALS: BP 130/89
[2017-10-11 03:00] VITALS: BP 157/96
[2017-10-11 06:00] VITALS: BP 145/93
[2017-10-11 06:21] LABS: EOSINOPHILS # (AUTO) 0.1 X10'3 (0-0.9); EOSINOPHILS % (AUTO) 2.7 % (0-6); HEMATOCRIT 38.9 % (42.0-52.0); LYMPHOCYTES % (AUTO) 23.8 % (21-51); MEAN CORPUSCULAR HEMOGLOBIN 29.9 PG (27.0-31.0); MEAN CORPUSCULAR HGB CONC 33.5 % (33.0-36.5); MEAN CORPUSCULAR VOLUME 89.2 FL (78-98); MEAN PLATELET VOLUME 10.6 FL (7.4-10.4); MONOCYTES # (AUTO) 0.5 X10'3 (0-0.9); MONOCYTES % (AUTO) 11.4 % (2-12); NEUTROPHILS # (AUTO) 2.6 X10'3 (1.8-7.7); NEUTROPHILS % (AUTO) 61.1 % (42-75); PLATELET COUNT 168 X10'3 (140-440); RED BLOOD COUNT 4.36 X10'6 (4.70-6.10); RED CELL DISTRIBUTION WIDTH 15.1 % (11.5-14.5); WHITE BLOOD COUNT 4.3 X10'3 (4.5-11.0)
[2017-10-11 06:45] LABS: ALBUMIN 3.9 G/DL (3.4-5.0); ANION GAP 11 (8-16); BLOOD UREA NITROGEN 27 MG/DL (7-18); BUN/CREATININE RATIO 19.7 (5.4-32.0); CALCIUM 10.1 MG/DL (8.5-10.1); CHLORIDE 104 MMOL/L (99-107); CREATININE 1.37 MG/DL (0.60-1.10); GLUCOSE 91 MG/DL (70-104); POTASSIUM 4.1 MMOL/L (3.5-5.1); SODIUM 141 MMOL/L (135-145); TOTAL CARBON DIOXIDE 25.6 MMOL/L (24-32); eGFR 51 ML/MIN
[2017-10-11] MEDS: K and/or MAG REPLACEMENT MC SCH (08:00)
[2017-10-11] MEDS: duloxetine 30mg CAPSULE.DR PO SCH ×2 (08:16→20:04)
[2017-10-11] MEDS: carBAMazepine 100mg chewable tablet PO SCH ×3 (08:16→17:06)
[2017-10-11] MEDS: clonazePAM 1mg tablet PO SCH ×2 (08:16→20:03)
[2017-10-11] MEDS: folic acid 1mg tablet PO SCH (08:16)
[2017-10-11] MEDS: methadone 10mg tablet PO SCH (08:16)
[2017-10-11] MEDS: levetiracetam 250mg tablet PO SCH ×2 (08:17→20:04)
[2017-10-11] MEDS: Protein Shake (high protein) 240ml (8oz) cup PO SCH ×3 (08:17→18:00)
[2017-10-11] MEDS: lactobacillus rhamnosus 10,000 MMU CELLS/CAPSULE PO SCH ×2 (08:17→20:03)
[2017-10-11] MEDS: docusate sod 100mg capsule PO SCH ×2 (08:17→20:03)
[2017-10-11] MEDS: heparin, porcine 5000 units/ml vial SQ SCH ×2 (08:17→20:05)
[2017-10-11] MEDS: megestrol acetate 400mg/10ml UD oral suspension PO SCH ×2 (08:17→20:06)
[2017-10-11] MEDS: thiamine 100mg tablet PO SCH ×2 (08:17→20:04)
[2017-10-11 11:00] VITALS: BP 149/96
[2017-10-11 15:00] VITALS: BP 156/83
[2017-10-11 19:00] VITALS: BP 152/90
[2017-10-11] MEDS: LORazepam 1 MG tablet PO PRN (20:03)
[2017-10-11 23:00] VITALS: BP 107/74
[2017-10-12] VITALS (11 sets, daily range): BP systolic 116–140; BP diastolic 82–103
[2017-10-12 05:19] LABS: EOSINOPHILS # (AUTO) 0.2 X10'3 (0-0.9); EOSINOPHILS % (AUTO) 4.7 % (0-6); HEMATOCRIT 39.7 % (42.0-52.0); HEMOGLOBIN 13.1 g/dl (14.0-17.9); LYMPHOCYTES # (AUTO) 1.1 X10'3 (1.1-4.8); LYMPHOCYTES % (AUTO) 22.7 % (21-51); MEAN CORPUSCULAR HEMOGLOBIN 29.8 PG (27.0-31.0); MEAN CORPUSCULAR HGB CONC 33.1 % (33.0-36.5); MEAN CORPUSCULAR VOLUME 90.1 FL (78-98); MEAN PLATELET VOLUME 10.3 FL (7.4-10.4); MONOCYTES # (AUTO) 0.7 X10'3 (0-0.9); MONOCYTES % (AUTO) 13.3 % (2-12); NEUTROPHILS # (AUTO) 2.9 X10'3 (1.8-7.7); NEUTROPHILS % (AUTO) 58.3 % (42-75); PLATELET COUNT 159 X10'3 (140-440); RED CELL DISTRIBUTION WIDTH 15.1 % (11.5-14.5)
[2017-10-12 05:33] LABS: ALBUMIN 3.6 G/DL (3.4-5.0); ANION GAP 9 (8-16); BLOOD UREA NITROGEN 28 MG/DL (7-18); CALCIUM 9.9 MG/DL (8.5-10.1); CHLORIDE 105 MMOL/L (99-107); CREATININE 1.47 MG/DL (0.60-1.10); GLUCOSE 92 MG/DL (70-104); POTASSIUM 4.3 MMOL/L (3.5-5.1); SODIUM 139 MMOL/L (135-145); TOTAL CARBON DIOXIDE 24.9 MMOL/L (24-32); eGFR 47 ML/MIN
[2017-10-12 07:22] LABS: MAGNESIUM 2.1 MG/DL (1.5-2.4)
[2017-10-12] MEDS: K and/or MAG REPLACEMENT MC SCH (08:00)
[2017-10-12] MEDS: Protein Shake (high protein) 240ml (8oz) cup PO SCH ×3 (08:00→18:01)
[2017-10-12] MEDS: carBAMazepine 100mg chewable tablet PO SCH ×3 (08:14→17:55)
[2017-10-12] MEDS: clonazePAM 1mg tablet PO SCH ×2 (08:14→21:23)
[2017-10-12] MEDS: thiamine 100mg tablet PO SCH ×2 (08:15→21:22)
[2017-10-12] MEDS: duloxetine 30mg CAPSULE.DR PO SCH ×2 (08:15→21:23)
[2017-10-12] MEDS: docusate sod 100mg capsule PO SCH ×2 (08:15→21:22)
[2017-10-12] MEDS: lactobacillus rhamnosus 10,000 MMU CELLS/CAPSULE PO SCH ×2 (08:15→21:23)
[2017-10-12] MEDS: folic acid 1mg tablet PO SCH (08:15)
[2017-10-12] MEDS: methadone 10mg tablet PO SCH (08:15)
[2017-10-12] MEDS: levetiracetam 250mg tablet PO SCH ×2 (08:15→21:23)
[2017-10-12] MEDS: heparin, porcine 5000 units/ml vial SQ SCH ×2 (08:16→21:24)
[2017-10-12] MEDS: megestrol acetate 400mg/10ml UD oral suspension PO SCH ×2 (08:16→20:00)
[2017-10-12] MEDS: magnesium hydroxide 30ml (MOM) UD suspension PO PRN (12:54)
[2017-10-12] MEDS: LORazepam 1 MG tablet PO PRN (21:22)
[2017-10-13 02:15] VITALS: BP 135/88
[2017-10-13 06:00] VITALS: BP 128/86
[2017-10-13 06:01] LABS: ALBUMIN 3.6 G/DL (3.4-5.0); ANION GAP 13 (8-16); BLOOD UREA NITROGEN 37 MG/DL (7-18); BUN/CREATININE RATIO 25.3 (5.4-32.0); CALCIUM 9.8 MG/DL (8.5-10.1); CHLORIDE 104 MMOL/L (99-107); CREATININE 1.46 MG/DL (0.60-1.10); GLUCOSE 102 MG/DL (70-104); POTASSIUM 4.2 MMOL/L (3.5-5.1); SODIUM 142 MMOL/L (135-145); TOTAL CARBON DIOXIDE 25.4 MMOL/L (24-32); eGFR 47 ML/MIN
[2017-10-13] MEDS: K and/or MAG REPLACEMENT MC SCH (08:00)
[2017-10-13] MEDS: duloxetine 30mg CAPSULE.DR PO SCH ×2 (10:07→20:56)
[2017-10-13] MEDS: methadone 10mg tablet PO SCH (10:07)
[2017-10-13] MEDS: thiamine 100mg tablet PO SCH ×2 (10:07→20:55)
[2017-10-13] MEDS: levetiracetam 250mg tablet PO SCH ×2 (10:08→20:55)
[2017-10-13] MEDS: docusate sod 100mg capsule PO SCH ×2 (10:08→20:55)
[2017-10-13] MEDS: folic acid 1mg tablet PO SCH (10:08)
[2017-10-13] MEDS: lactobacillus rhamnosus 10,000 MMU CELLS/CAPSULE PO SCH ×2 (10:08→20:55)
[2017-10-13] MEDS: megestrol acetate 400mg/10ml UD oral suspension PO SCH ×2 (10:08→20:00)
[2017-10-13] MEDS: clonazePAM 1mg tablet PO SCH ×2 (10:08→20:55)
[2017-10-13] MEDS: heparin, porcine 5000 units/ml vial SQ SCH ×2 (10:09→20:57)
[2017-10-13] MEDS: Protein Shake (high protein) 240ml (8oz) cup PO SCH ×3 (10:10→18:00)
[2017-10-13] MEDS: carBAMazepine 100mg chewable tablet PO SCH ×3 (10:15→17:52)
[2017-10-13 11:00] VITALS: BP 133/89
[2017-10-13] MEDS: LORazepam 1 MG tablet PO PRN (14:20)
[2017-10-13] MEDS: lactulose 20gm/30ml cup PO PRN (14:20)
[2017-10-13 15:00] VITALS: BP 137/97
[2017-10-13 18:00] VITALS: BP 129/90
[2017-10-13 22:00] VITALS: BP 143/87
[2017-10-14 02:00] VITALS: BP 126/86
[2017-10-14 07:00] VITALS: BP 118/90
[2017-10-14] MEDS: lactobacillus rhamnosus 10,000 MMU CELLS/CAPSULE PO SCH ×2 (09:15→20:12)
[2017-10-14] MEDS: levetiracetam 250mg tablet PO SCH ×2 (09:15→20:12)
[2017-10-14] MEDS: duloxetine 30mg CAPSULE.DR PO SCH ×2 (09:15→20:12)
[2017-10-14] MEDS: thiamine 100mg tablet PO SCH ×2 (09:16→20:12)
[2017-10-14] MEDS: methadone 10mg tablet PO SCH (09:16)
[2017-10-14] MEDS: docusate sod 100mg capsule PO SCH ×2 (09:16→20:12)
[2017-10-14] MEDS: clonazePAM 1mg tablet PO SCH ×2 (09:16→20:12)
[2017-10-14] MEDS: carBAMazepine 100mg chewable tablet PO SCH ×3 (09:16→16:34)
[2017-10-14] MEDS: megestrol acetate 400mg/10ml UD oral suspension PO SCH ×2 (09:17→20:11)
[2017-10-14] MEDS: Protein Shake (high protein) 240ml (8oz) cup PO SCH ×3 (09:17→18:00)
[2017-10-14] MEDS: folic acid 1mg tablet PO SCH (09:17)
[2017-10-14] MEDS: heparin, porcine 5000 units/ml vial SQ SCH ×2 (09:18→20:11)
[2017-10-14] MEDS: K and/or MAG REPLACEMENT MC SCH (09:46)
[2017-10-14 12:11] VITALS: BP 131/88
[2017-10-14] MEDS: LORazepam 1 MG tablet PO PRN (16:34)
[2017-10-14 17:05] VITALS: BP 142/92
[2017-10-14 20:00] VITALS: BP 122/92
[2017-10-14 22:00] VITALS: BP 129/80
[2017-10-15 03:05] VITALS: BP 138/82
[2017-10-15 06:00] VITALS: BP 133/93
[2017-10-15] MEDS: K and/or MAG REPLACEMENT MC SCH (08:00)
[2017-10-15] MEDS: megestrol acetate 400mg/10ml UD oral suspension PO SCH ×2 (08:30→20:36)
[2017-10-15] MEDS: docusate sod 100mg capsule PO SCH ×2 (08:30→20:27)
[2017-10-15] MEDS: duloxetine 30mg CAPSULE.DR PO SCH ×2 (08:31→20:27)
[2017-10-15] MEDS: lactobacillus rhamnosus 10,000 MMU CELLS/CAPSULE PO SCH ×2 (08:31→20:27)
[2017-10-15] MEDS: levetiracetam 250mg tablet PO SCH ×2 (08:32→20:27)
[2017-10-15] MEDS: Protein Shake (high protein) 240ml (8oz) cup PO SCH ×3 (08:32→18:00)
[2017-10-15] MEDS: methadone 10mg tablet PO SCH (08:32)
[2017-10-15] MEDS: clonazePAM 1mg tablet PO SCH ×2 (08:32→20:27)
[2017-10-15] MEDS: folic acid 1mg tablet PO SCH (08:32)
[2017-10-15] MEDS: heparin, porcine 5000 units/ml vial SQ SCH ×2 (08:33→20:34)
[2017-10-15] MEDS: carBAMazepine 100mg chewable tablet PO SCH ×3 (08:33→17:13)
[2017-10-15] MEDS: thiamine 100mg tablet PO SCH ×2 (08:33→20:27)
[2017-10-15 15:00] VITALS: BP 123/78
[2017-10-15 18:05] VITALS: BP 142/65
[2017-10-15] MEDS: tamsulosin 0.4mg capsule PO SCH (20:27)
[2017-10-15 22:13] VITALS: BP 125/77
[2017-10-16 06:00] VITALS: BP 130/81
[2017-10-16] MEDS: K and/or MAG REPLACEMENT MC SCH (08:00)
[2017-10-16] MEDS: Protein Shake (high protein) 240ml (8oz) cup PO SCH ×3 (08:00→18:18)
[2017-10-16] MEDS: docusate sod 100mg capsule PO SCH ×2 (08:43→19:34)
[2017-10-16] MEDS: lactobacillus rhamnosus 10,000 MMU CELLS/CAPSULE PO SCH ×2 (08:43→19:34)
[2017-10-16] MEDS: levetiracetam 250mg tablet PO SCH ×2 (08:43→19:34)
[2017-10-16] MEDS: folic acid 1mg tablet PO SCH (08:43)
[2017-10-16] MEDS: methadone 10mg tablet PO SCH (08:43)
[2017-10-16] MEDS: thiamine 100mg tablet PO SCH ×2 (08:43→19:34)
[2017-10-16] MEDS: clonazePAM 1mg tablet PO SCH ×2 (08:43→19:34)
[2017-10-16] MEDS: duloxetine 30mg CAPSULE.DR PO SCH ×2 (08:43→19:34)
[2017-10-16] MEDS: megestrol acetate 400mg/10ml UD oral suspension PO SCH ×2 (08:45→19:34)
[2017-10-16] MEDS: carBAMazepine 100mg chewable tablet PO SCH ×3 (08:45→18:18)
[2017-10-16] MEDS: heparin, porcine 5000 units/ml vial SQ SCH ×2 (08:45→19:35)
[2017-10-16 10:00] VITALS: BP 107/91
[2017-10-16 15:00] VITALS: BP 143/94
[2017-10-16 18:16] VITALS: BP 133/85
[2017-10-16] MEDS: LORazepam 1 MG tablet PO PRN (18:17)
[2017-10-16] MEDS: tamsulosin 0.4mg capsule PO SCH (19:34)
[2017-10-16 22:20] VITALS: BP 119/79
[2017-10-17 06:00] VITALS: BP 134/64
[2017-10-17] MEDS: K and/or MAG REPLACEMENT MC SCH (08:00)
[2017-10-17] MEDS: docusate sod 100mg capsule PO SCH ×2 (09:12→19:49)
[2017-10-17] MEDS: folic acid 1mg tablet PO SCH (09:12)
[2017-10-17] MEDS: levetiracetam 250mg tablet PO SCH ×2 (09:12→19:49)
[2017-10-17] MEDS: megestrol acetate 400mg/10ml UD oral suspension PO SCH ×2 (09:12→19:50)
[2017-10-17] MEDS: lactobacillus rhamnosus 10,000 MMU CELLS/CAPSULE PO SCH ×2 (09:12→19:49)
[2017-10-17] MEDS: methadone 10mg tablet PO SCH (09:12)
[2017-10-17] MEDS: thiamine 100mg tablet PO SCH ×2 (09:13→19:49)
[2017-10-17] MEDS: clonazePAM 1mg tablet PO SCH ×2 (09:13→19:49)
[2017-10-17] MEDS: duloxetine 30mg CAPSULE.DR PO SCH ×2 (09:13→19:49)
[2017-10-17] MEDS: carBAMazepine 100mg chewable tablet PO SCH ×3 (09:16→17:40)
[2017-10-17] MEDS: Protein Shake (high protein) 240ml (8oz) cup PO SCH ×3 (09:17→19:49)
[2017-10-17 10:00] VITALS: BP 112/63
[2017-10-17] MEDS: heparin, porcine 5000 units/ml vial SQ SCH ×2 (10:38→19:50)
[2017-10-17] MEDS ORDERED: clonazePAM 1mg tablet PO SCH (11:30)
[2017-10-17] MEDS: LORazepam 1 MG tablet PO PRN (11:47)
[2017-10-17 18:00] VITALS: BP 140/85
[2017-10-17] MEDS: tamsulosin 0.4mg capsule PO SCH (19:49)
[2017-10-17 22:00] VITALS: BP 102/68
[2017-10-17] MEDS: ondansetron/PF 4mg/2ml inj IV PRN (22:04)
[2017-10-18 05:00] VITALS: BP 121/90
[2017-10-18] MEDS: K and/or MAG REPLACEMENT MC SCH (08:00)
[2017-10-18] MEDS: lactobacillus rhamnosus 10,000 MMU CELLS/CAPSULE PO SCH ×2 (08:53→20:00)
[2017-10-18] MEDS: docusate sod 100mg capsule PO SCH ×2 (08:53→20:00)
[2017-10-18] MEDS: levetiracetam 250mg tablet PO SCH ×2 (08:54→22:13)
[2017-10-18] MEDS: clonazePAM 1mg tablet PO SCH ×2 (08:54→22:13)
[2017-10-18] MEDS: megestrol acetate 400mg/10ml UD oral suspension PO SCH ×2 (08:54→20:00)
[2017-10-18] MEDS: duloxetine 30mg CAPSULE.DR PO SCH ×2 (08:54→20:00)
[2017-10-18] MEDS: folic acid 1mg tablet PO SCH (08:54)
[2017-10-18] MEDS: methadone 10mg tablet PO SCH (08:54)
[2017-10-18] MEDS: Protein Shake (high protein) 240ml (8oz) cup PO SCH ×3 (08:55→18:00)
[2017-10-18] MEDS: thiamine 100mg tablet PO SCH ×2 (08:55→20:00)
[2017-10-18] MEDS: heparin, porcine 5000 units/ml vial SQ SCH ×2 (08:57→23:51)
[2017-10-18] MEDS: carBAMazepine 100mg chewable tablet PO SCH ×3 (08:58→17:12)
[2017-10-18 10:00] VITALS: BP 126/64
[2017-10-18 18:00] VITALS: BP 137/84
[2017-10-18] MEDS: ondansetron/PF 4mg/2ml inj IV PRN (20:11)
[2017-10-18] MEDS: tamsulosin 0.4mg capsule PO SCH (21:00)
[2017-10-18 22:00] VITALS: BP 106/58
[2017-10-19 05:00] VITALS: BP_SYST 113; BP_SYST 133; BP_DIAS 74; BP_DIAS 76
[2017-10-19] MEDS: K and/or MAG REPLACEMENT MC SCH (08:00)
[2017-10-19] MEDS: duloxetine 30mg CAPSULE.DR PO SCH ×2 (09:36→20:00)
[2017-10-19] MEDS: docusate sod 100mg capsule PO SCH ×2 (09:36→20:00)
[2017-10-19] MEDS: lactobacillus rhamnosus 10,000 MMU CELLS/CAPSULE PO SCH (09:36)
[2017-10-19] MEDS: Protein Shake (high protein) 240ml (8oz) cup PO SCH ×3 (09:37→18:00)
[2017-10-19] MEDS: methadone 10mg tablet PO SCH (09:37)
[2017-10-19] MEDS: carBAMazepine 100mg chewable tablet PO SCH ×3 (09:37→17:47)
[2017-10-19] MEDS: levetiracetam 250mg tablet PO SCH ×2 (09:37→20:00)
[2017-10-19] MEDS: clonazePAM 1mg tablet PO SCH ×2 (09:37→20:00)
[2017-10-19] MEDS: folic acid 1mg tablet PO SCH (09:37)
[2017-10-19] MEDS: megestrol acetate 400mg/10ml UD oral suspension PO SCH ×2 (09:37→20:00)
[2017-10-19] MEDS: thiamine 100mg tablet PO SCH (09:38)
[2017-10-19] MEDS: heparin, porcine 5000 units/ml vial SQ SCH ×2 (09:38→20:02)
[2017-10-19 10:00] VITALS: BP 115/73
[2017-10-19 18:00] VITALS: BP 119/75
[2017-10-19] MEDS: ondansetron/PF 4mg/2ml inj IV PRN (18:53)
[2017-10-19] MEDS: tamsulosin 0.4mg capsule PO SCH (20:04)
[2017-10-19 22:00] VITALS: BP 113/70
[2017-10-20 05:00] VITALS: BP 123/69
[2017-10-20 06:09] LABS: BASOPHILS # (AUTO) 0.1 X10'3 (0-0.2); BASOPHILS % (AUTO) 0.5 % (0-1); EOSINOPHILS # (AUTO) 0.2 X10'3 (0-0.9); EOSINOPHILS % (AUTO) 1.7 % (0-6); HEMOGLOBIN 10.8 g/dl (14.0-17.9); LYMPHOCYTES # (AUTO) 0.9 X10'3 (1.1-4.8); LYMPHOCYTES % (AUTO) 7.7 % (21-51); MEAN CORPUSCULAR HEMOGLOBIN 30.3 PG (27.0-31.0); MEAN CORPUSCULAR HGB CONC 33.7 % (33.0-36.5); MONOCYTES # (AUTO) 0.7 X10'3 (0-0.9); MONOCYTES % (AUTO) 5.5 % (2-12); NEUTROPHILS # (AUTO) 10.5 X10'3 (1.8-7.7); NEUTROPHILS % (AUTO) 84.6 % (42-75); PLATELET COUNT 112 X10'3 (140-440); RED BLOOD COUNT 3.56 X10'6 (4.70-6.10); RED CELL DISTRIBUTION WIDTH 15.3 % (11.5-14.5); WHITE BLOOD COUNT 12.4 X10'3 (4.5-11.0)
[2017-10-20 06:33] LABS: ALANINE AMINOTRANSFERASE 19 U/L (12-78); ALBUMIN 3.1 G/DL (3.4-5.0); ALBUMIN/GLOBULIN RATIO 0.8 (1.1-1.5); ALKALINE PHOSPHATASE 83 IU/L (46-116); ANION GAP 11 (8-16); ASPARTATE AMINO TRANSFERASE 12 U/L (10-37); BILIRUBIN,TOTAL 0.6 MG/DL (0.1-1.0); BLOOD UREA NITROGEN 30 MG/DL (7-18); BUN/CREATININE RATIO 22.4 (5.4-32.0); CALCIUM 9.5 MG/DL (8.5-10.1); CARBAMAZEPINE (TEGRETOL) 13.3 UG/ML (4.0-12.0); CHLORIDE 108 MMOL/L (99-107); CREATININE 1.34 MG/DL (0.60-1.10); GLUCOSE 100 MG/DL (70-104); POTASSIUM 3.9 MMOL/L (3.5-5.1); SODIUM 142 MMOL/L (135-145); TOTAL PROTEIN 7.2 G/DL (6.4-8.2); eGFR 52 ML/MIN
[2017-10-20] MEDS: K and/or MAG REPLACEMENT MC SCH (08:00)
[2017-10-20] MEDS: Protein Shake (high protein) 240ml (8oz) cup PO SCH (08:00)
[2017-10-20] MEDS: carBAMazepine 100mg chewable tablet PO SCH ×3 (08:30→20:00)
[2017-10-20] MEDS: megestrol acetate 400mg/10ml UD oral suspension PO SCH (09:04)
[2017-10-20] MEDS: methadone 10mg tablet PO SCH (09:04)
[2017-10-20] MEDS: heparin, porcine 5000 units/ml vial SQ SCH ×2 (09:04→20:24)
[2017-10-20] MEDS: duloxetine 30mg CAPSULE.DR PO SCH ×2 (09:04→20:22)
[2017-10-20] MEDS: clonazePAM 1mg tablet PO SCH ×2 (09:04→20:22)
[2017-10-20] MEDS: docusate sod 100mg capsule PO SCH ×2 (09:04→20:20)
[2017-10-20] MEDS: ondansetron/PF 4mg/2ml inj IV PRN (09:04)
[2017-10-20] MEDS: levetiracetam 250mg tablet PO SCH ×2 (09:05→20:24)
[2017-10-20 18:00] VITALS: BP 144/92
[2017-10-20] MEDS: tamsulosin 0.4mg capsule PO SCH (20:24)
[2017-10-20 22:00] VITALS: BP 113/72
[2017-10-21 06:00] VITALS: BP 121/75
[2017-10-21 06:19] LABS: BASOPHILS % (AUTO) 0.2 % (0-1); EOSINOPHILS # (AUTO) 0.3 X10'3 (0-0.9); EOSINOPHILS % (AUTO) 3.2 % (0-6); HEMATOCRIT 32.6 % (42.0-52.0); HEMOGLOBIN 10.9 g/dl (14.0-17.9); LYMPHOCYTES % (AUTO) 10.9 % (21-51); MEAN CORPUSCULAR HEMOGLOBIN 30.5 PG (27.0-31.0); MEAN CORPUSCULAR HGB CONC 33.6 % (33.0-36.5); MEAN CORPUSCULAR VOLUME 90.8 FL (78-98); MEAN PLATELET VOLUME 10.4 FL (7.4-10.4); MONOCYTES # (AUTO) 0.7 X10'3 (0-0.9); MONOCYTES % (AUTO) 7.5 % (2-12); NEUTROPHILS % (AUTO) 78.2 % (42-75); PLATELET COUNT 120 X10'3 (140-440); RED BLOOD COUNT 3.59 X10'6 (4.70-6.10); RED CELL DISTRIBUTION WIDTH 15.5 % (11.5-14.5); WHITE BLOOD COUNT 8.9 X10'3 (4.5-11.0)
[2017-10-21] MEDS: K and/or MAG REPLACEMENT MC SCH (07:13)
[2017-10-21] MEDS: duloxetine 30mg CAPSULE.DR PO SCH (08:21)
[2017-10-21] MEDS: levetiracetam 250mg tablet PO SCH ×2 (08:22→20:14)
[2017-10-21] MEDS: methadone 10mg tablet PO SCH (08:24)
[2017-10-21] MEDS: docusate sod 100mg capsule PO SCH ×2 (08:25→20:14)
[2017-10-21] MEDS: clonazePAM 1mg tablet PO SCH ×2 (08:25→20:14)
[2017-10-21] MEDS: heparin, porcine 5000 units/ml vial SQ SCH ×2 (08:27→20:14)
[2017-10-21] MEDS: carBAMazepine 100mg chewable tablet PO SCH ×2 (08:49→20:15)
[2017-10-21 10:00] VITALS: BP 131/88
[2017-10-21 10:45] VITALS: BP_SYST 121; BP_SYST 85; BP_SYST 86; BP_DIAS 43; BP_DIAS 52; BP_DIAS 79
[2017-10-21 18:00] VITALS: BP 136/89
[2017-10-21] MEDS: tamsulosin 0.4mg capsule PO SCH (20:14)
[2017-10-22 07:00] VITALS: BP 114/69
[2017-10-22] MEDS: K and/or MAG REPLACEMENT MC SCH (08:00)
[2017-10-22 10:30] VITALS: BP 114/71
[2017-10-22] MEDS: carBAMazepine 100mg chewable tablet PO SCH ×2 (10:36→20:15)
[2017-10-22] MEDS: duloxetine 30mg CAPSULE.DR PO SCH (10:36)
[2017-10-22] MEDS: methadone 10mg tablet PO SCH (10:37)
[2017-10-22] MEDS: clonazePAM 1mg tablet PO SCH ×2 (10:37→20:16)
[2017-10-22] MEDS: levetiracetam 250mg tablet PO SCH ×2 (10:37→20:15)
[2017-10-22] MEDS: docusate sod 100mg capsule PO SCH ×2 (10:37→20:00)
[2017-10-22] MEDS: heparin, porcine 5000 units/ml vial SQ SCH ×2 (10:38→20:17)
[2017-10-22 19:00] VITALS: BP 127/82
[2017-10-22] MEDS: tamsulosin 0.4mg capsule PO SCH (20:15)
[2017-10-22 23:00] VITALS: BP 127/76
[2017-10-23 06:00] VITALS: BP 109/65
[2017-10-23] MEDS: docusate sod 100mg capsule PO SCH ×2 (07:32→19:14)
[2017-10-23] MEDS: duloxetine 30mg CAPSULE.DR PO SCH (07:32)
[2017-10-23] MEDS: carBAMazepine 100mg chewable tablet PO SCH ×2 (07:32→19:19)
[2017-10-23] MEDS: levetiracetam 250mg tablet PO SCH ×2 (07:32→19:19)
[2017-10-23] MEDS: clonazePAM 1mg tablet PO SCH ×2 (07:32→19:14)
[2017-10-23] MEDS: methadone 10mg tablet PO SCH (07:32)
[2017-10-23] MEDS: heparin, porcine 5000 units/ml vial SQ SCH ×2 (07:33→19:18)
[2017-10-23] MEDS: K and/or MAG REPLACEMENT MC SCH (07:41)
[2017-10-23] MEDS ORDERED: potassium Cl 20 mEq SR tablet PO PRN ×2 (09:40)
[2017-10-23] MEDS ORDERED: magnesium 2GM in 50ml NS 50 ML IV PRN (09:40)
[2017-10-23] MEDS ORDERED: magnesium 4gm in 100ml NS 100 ML IV PRN (09:40)
[2017-10-23] MEDS ORDERED: magnesium Cl slow-release 64mg tablet PO PRN (09:40)
[2017-10-23] MEDS ORDERED: potassium Cl 40MEQ/NS 500ml 500 ML IV PRN ×2 (09:40)
[2017-10-23 11:00] VITALS: BP 128/81
[2017-10-23] MEDS: LORazepam 1 MG tablet PO PRN ×2 (11:38→17:47)
[2017-10-23] MEDS: Protein Shake (high protein) 240ml (8oz) cup PO SCH (18:25)
[2017-10-23] MEDS: tamsulosin 0.4mg capsule PO SCH (19:14)
[2017-10-23 19:30] VITALS: BP 115/75
[2017-10-23 22:30] VITALS: BP 102/70
[2017-10-24] MEDS: LORazepam 1 MG tablet PO PRN
[2017-10-24 06:00] VITALS: BP 112/65
[2017-10-24 06:02] LABS: BASOPHILS # (AUTO) 0.1 X10'3 (0-0.2); BASOPHILS % (AUTO) 1.8 % (0-1); EOSINOPHILS # (AUTO) 0.2 X10'3 (0-0.9); EOSINOPHILS % (AUTO) 4.9 % (0-6); HEMOGLOBIN 9.8 g/dl (14.0-17.9); LYMPHOCYTES # (AUTO) 0.7 X10'3 (1.1-4.8); LYMPHOCYTES % (AUTO) 16.8 % (21-51); MEAN CORPUSCULAR HEMOGLOBIN 30.1 PG (27.0-31.0); MEAN CORPUSCULAR HGB CONC 33.8 % (33.0-36.5); MEAN CORPUSCULAR VOLUME 89.1 FL (78-98); MEAN PLATELET VOLUME 8.6 FL (7.4-10.4); MONOCYTES # (AUTO) 0.7 X10'3 (0-0.9); MONOCYTES % (AUTO) 16.3 % (2-12); NEUTROPHILS # (AUTO) 2.7 X10'3 (1.8-7.7); NEUTROPHILS % (AUTO) 60.2 % (42-75); PLATELET COUNT 132 X10'3 (140-440); RED BLOOD COUNT 3.26 X10'6 (4.70-6.10); RED CELL DISTRIBUTION WIDTH 15.2 % (11.5-14.5); WHITE BLOOD COUNT 4.4 X10'3 (4.5-11.0)
[2017-10-24 06:55] LABS: ALANINE AMINOTRANSFERASE 33 U/L (12-78); ALBUMIN 2.9 G/DL (3.4-5.0); ALBUMIN/GLOBULIN RATIO 0.7 (1.1-1.5); ALKALINE PHOSPHATASE 79 IU/L (46-116); ANION GAP 10 (8-16); ASPARTATE AMINO TRANSFERASE 18 U/L (10-37); BILIRUBIN,TOTAL 0.4 MG/DL (0.1-1.0); BLOOD UREA NITROGEN 24 MG/DL (7-18); BUN/CREATININE RATIO 20.9 (5.4-32.0); CALCIUM 9.2 MG/DL (8.5-10.1); CHLORIDE 107 MMOL/L (99-107); CREATININE 1.15 MG/DL (0.60-1.10); GLUCOSE 100 MG/DL (70-104); MAGNESIUM 1.9 MG/DL (1.5-2.4); SODIUM 139 MMOL/L (135-145); TOTAL CARBON DIOXIDE 22.1 MMOL/L (24-32); eGFR 63 ML/MIN
[2017-10-24] MEDS: K and/or MAG REPLACEMENT MC SCH (08:00)
[2017-10-24] MEDS: clonazePAM 1mg tablet PO SCH ×2 (08:31→19:52)
[2017-10-24] MEDS: duloxetine 30mg CAPSULE.DR PO SCH (08:31)
[2017-10-24] MEDS: carBAMazepine 100mg chewable tablet PO SCH ×2 (08:31→19:52)
[2017-10-24] MEDS: methadone 10mg tablet PO SCH (08:31)
[2017-10-24] MEDS: levetiracetam 250mg tablet PO SCH ×2 (08:31→19:52)
[2017-10-24] MEDS: docusate sod 100mg capsule PO SCH ×2 (08:33→19:52)
[2017-10-24] MEDS: Protein Shake (high protein) 240ml (8oz) cup PO SCH ×3 (08:47→18:00)
[2017-10-24] MEDS: heparin, porcine 5000 units/ml vial SQ SCH ×2 (08:48→19:52)
[2017-10-24 09:05] LABS: ANISOCYTOSIS FEW; PLATELET ESTIMATE DECREASED; TOTAL CELLS COUNTED 100
[2017-10-24 10:00] VITALS: BP 122/62
[2017-10-24] MEDS: acetaminophen 325mg tablet PO PRN (17:19)
[2017-10-24 18:00] VITALS: BP 142/86
[2017-10-24] MEDS: tamsulosin 0.4mg capsule PO SCH (19:53)
[2017-10-24 22:00] VITALS: BP 127/87
[2017-10-25 06:00] VITALS: BP 138/83
[2017-10-25 07:49] LABS: BASOPHILS # (AUTO) 0.1 X10'3 (0-0.2); BASOPHILS % (AUTO) 1.2 % (0-1); EOSINOPHILS # (AUTO) 0.2 X10'3 (0-0.9); EOSINOPHILS % (AUTO) 5.6 % (0-6); HEMATOCRIT 33.5 % (42.0-52.0); HEMOGLOBIN 11.1 g/dl (14.0-17.9); LYMPHOCYTES # (AUTO) 0.8 X10'3 (1.1-4.8); LYMPHOCYTES % (AUTO) 17.9 % (21-51); MEAN CORPUSCULAR HGB CONC 33.2 % (33.0-36.5); MEAN CORPUSCULAR VOLUME 90.2 FL (78-98); MEAN PLATELET VOLUME 8.9 FL (7.4-10.4); MONOCYTES # (AUTO) 0.7 X10'3 (0-0.9); NEUTROPHILS # (AUTO) 2.5 X10'3 (1.8-7.7); NEUTROPHILS % (AUTO) 59.3 % (42-75); PLATELET COUNT 145 X10'3 (140-440); RED BLOOD COUNT 3.72 X10'6 (4.70-6.10); RED CELL DISTRIBUTION WIDTH 15.3 % (11.5-14.5); WHITE BLOOD COUNT 4.2 X10'3 (4.5-11.0)
[2017-10-25 08:04] LABS: ALANINE AMINOTRANSFERASE 33 U/L (12-78); ALBUMIN/GLOBULIN RATIO 0.7 (1.1-1.5); ALKALINE PHOSPHATASE 81 IU/L (46-116); ANION GAP 12 (8-16); ASPARTATE AMINO TRANSFERASE 18 U/L (10-37); BILIRUBIN,TOTAL 0.4 MG/DL (0.1-1.0); BLOOD UREA NITROGEN 22 MG/DL (7-18); BUN/CREATININE RATIO 20.8 (5.4-32.0); CALCIUM 9.7 MG/DL (8.5-10.1); CHLORIDE 107 MMOL/L (99-107); CREATININE 1.06 MG/DL (0.60-1.10); GLUCOSE 94 MG/DL (70-104); MAGNESIUM 2.1 MG/DL (1.5-2.4); POTASSIUM 4.2 MMOL/L (3.5-5.1); SODIUM 141 MMOL/L (135-145); TOTAL CARBON DIOXIDE 21.9 MMOL/L (24-32); TOTAL PROTEIN 7.5 G/DL (6.4-8.2); eGFR 69 ML/MIN
[2017-10-25] MEDS: methadone 10mg tablet PO SCH (08:12)
[2017-10-25] MEDS: levetiracetam 250mg tablet PO SCH ×2 (08:12→19:35)
[2017-10-25] MEDS: clonazePAM 1mg tablet PO SCH ×2 (08:12→19:35)
[2017-10-25] MEDS: Protein Shake (high protein) 240ml (8oz) cup PO SCH ×3 (08:13→19:34)
[2017-10-25] MEDS: docusate sod 100mg capsule PO SCH ×2 (08:13→19:35)
[2017-10-25] MEDS: duloxetine 30mg CAPSULE.DR PO SCH (08:13)
[2017-10-25] MEDS: carBAMazepine 100mg chewable tablet PO SCH ×2 (08:13→19:35)
[2017-10-25] MEDS: heparin, porcine 5000 units/ml vial SQ SCH ×2 (08:14→19:35)
[2017-10-25] MEDS: K and/or MAG REPLACEMENT MC SCH (08:32)
[2017-10-25 09:08] LABS: ANISOCYTOSIS FEW; PLATELET ESTIMATE NORMAL; TOTAL CELLS COUNTED 100
[2017-10-25 11:22] VITALS: BP 115/77
[2017-10-25] MEDS: magnesium hydroxide 30ml (MOM) UD suspension PO PRN (15:13)
[2017-10-25 18:00] VITALS: BP 117/78
[2017-10-25] MEDS ORDERED: LORazepam 0.5 MG tablet PO PRN (18:05)
[2017-10-25] MEDS: tamsulosin 0.4mg capsule PO SCH (19:35)
[2017-10-25] MEDS: normal saline 1000ml 1,000 ML IV SCH (19:41)
[2017-10-25 22:17] VITALS: BP 90/71
[2017-10-25 22:25] VITALS: BP 113/75
[2017-10-26 06:00] VITALS: BP 118/64
[2017-10-26 07:06] LABS: BASOPHILS % (AUTO) 0.9 % (0-1); EOSINOPHILS # (AUTO) 0.2 X10'3 (0-0.9); EOSINOPHILS % (AUTO) 6.3 % (0-6); HEMATOCRIT 33.5 % (42.0-52.0); HEMOGLOBIN 11.3 g/dl (14.0-17.9); LYMPHOCYTES # (AUTO) 0.7 X10'3 (1.1-4.8); LYMPHOCYTES % (AUTO) 19.1 % (21-51); MEAN CORPUSCULAR HEMOGLOBIN 30.4 PG (27.0-31.0); MEAN CORPUSCULAR HGB CONC 33.5 % (33.0-36.5); MEAN CORPUSCULAR VOLUME 90.7 FL (78-98); MEAN PLATELET VOLUME 9.1 FL (7.4-10.4); MONOCYTES # (AUTO) 0.5 X10'3 (0-0.9); MONOCYTES % (AUTO) 11.7 % (2-12); NEUTROPHILS # (AUTO) 2.4 X10'3 (1.8-7.7); PLATELET COUNT 160 X10'3 (140-440); RED CELL DISTRIBUTION WIDTH 15.6 % (11.5-14.5); WHITE BLOOD COUNT 3.9 X10'3 (4.5-11.0)
[2017-10-26 07:23] LABS: ALANINE AMINOTRANSFERASE 32 U/L (12-78); ALBUMIN 2.9 G/DL (3.4-5.0); ALBUMIN/GLOBULIN RATIO 0.7 (1.1-1.5); ALKALINE PHOSPHATASE 80 IU/L (46-116); ANION GAP 8 (8-16); ASPARTATE AMINO TRANSFERASE 17 U/L (10-37); BILIRUBIN,TOTAL 0.3 MG/DL (0.1-1.0); BLOOD UREA NITROGEN 26 MG/DL (7-18); BUN/CREATININE RATIO 22.8 (5.4-32.0); CALCIUM 9.5 MG/DL (8.5-10.1); CHLORIDE 108 MMOL/L (99-107); CREATININE 1.14 MG/DL (0.60-1.10); GLUCOSE 96 MG/DL (70-104); MAGNESIUM 2.2 MG/DL (1.5-2.4); POTASSIUM 4.5 MMOL/L (3.5-5.1); SODIUM 141 MMOL/L (135-145); TOTAL PROTEIN 7.2 G/DL (6.4-8.2); eGFR 63 ML/MIN
[2017-10-26] MEDS: K and/or MAG REPLACEMENT MC SCH (08:00)
[2017-10-26] MEDS: docusate sod 100mg capsule PO SCH ×2 (08:20→20:34)
[2017-10-26] MEDS: normal saline 1000ml 1,000 ML IV SCH (08:20)
[2017-10-26] MEDS: methadone 10mg tablet PO SCH (08:21)
[2017-10-26] MEDS: Protein Shake (high protein) 240ml (8oz) cup PO SCH ×3 (08:21→18:30)
[2017-10-26] MEDS: duloxetine 30mg CAPSULE.DR PO SCH (08:21)
[2017-10-26] MEDS: carBAMazepine 100mg chewable tablet PO SCH ×2 (08:21→20:34)
[2017-10-26] MEDS: levetiracetam 250mg tablet PO SCH ×2 (08:21→20:30)
[2017-10-26] MEDS: clonazePAM 1mg tablet PO SCH ×2 (08:21→20:35)
[2017-10-26] MEDS: heparin, porcine 5000 units/ml vial SQ SCH ×2 (08:22→20:31)
[2017-10-26 11:00] VITALS: BP 121/85
[2017-10-26] MEDS ORDERED: LORazepam 0.5 MG tablet PO ONE (16:20)
[2017-10-26 18:00] VITALS: BP 157/86
[2017-10-26] MEDS ORDERED: potassium Cl 40MEQ/250ML bag 250 ML IV PRN ×2 (18:30)
[2017-10-26] MEDS ORDERED: magnesium 2GM in 50ml NS 50 ML IV PRN ×2 (18:30)
[2017-10-26] MEDS: tamsulosin 0.4mg capsule PO SCH (20:30)
[2017-10-26 22:00] VITALS: BP 133/68
[2017-10-27] MEDS: normal saline 1000ml 1,000 ML IV SCH ×2 (01:29→13:27)
[2017-10-27 06:00] VITALS: BP 116/67
[2017-10-27 06:38] LABS: BASOPHILS % (AUTO) 1.2 % (0-1); EOSINOPHILS # (AUTO) 0.3 X10'3 (0-0.9); EOSINOPHILS % (AUTO) 7.2 % (0-6); HEMATOCRIT 28.2 % (42.0-52.0); HEMOGLOBIN 9.6 g/dl (14.0-17.9); LYMPHOCYTES # (AUTO) 0.8 X10'3 (1.1-4.8); LYMPHOCYTES % (AUTO) 22.9 % (21-51); MEAN CORPUSCULAR HEMOGLOBIN 30.5 PG (27.0-31.0); MEAN CORPUSCULAR HGB CONC 34.1 % (33.0-36.5); MEAN CORPUSCULAR VOLUME 89.5 FL (78-98); MEAN PLATELET VOLUME 8.2 FL (7.4-10.4); MONOCYTES # (AUTO) 0.4 X10'3 (0-0.9); MONOCYTES % (AUTO) 10.9 % (2-12); NEUTROPHILS % (AUTO) 57.8 % (42-75); PLATELET COUNT 134 X10'3 (140-440); RED BLOOD COUNT 3.15 X10'6 (4.70-6.10); RED CELL DISTRIBUTION WIDTH 15.1 % (11.5-14.5); WHITE BLOOD COUNT 3.5 X10'3 (4.5-11.0)
[2017-10-27 07:03] LABS: ALANINE AMINOTRANSFERASE 29 U/L (12-78); ALBUMIN 2.7 G/DL (3.4-5.0); ALBUMIN/GLOBULIN RATIO 0.7 (1.1-1.5); ALKALINE PHOSPHATASE 69 IU/L (46-116); ANION GAP 9 (8-16); ASPARTATE AMINO TRANSFERASE 15 U/L (10-37); BILIRUBIN,TOTAL 0.3 MG/DL (0.1-1.0); BLOOD UREA NITROGEN 24 MG/DL (7-18); BUN/CREATININE RATIO 23.1 (5.4-32.0); CALCIUM 8.9 MG/DL (8.5-10.1); CHLORIDE 110 MMOL/L (99-107); CREATININE 1.04 MG/DL (0.60-1.10); GLUCOSE 92 MG/DL (70-104); SODIUM 141 MMOL/L (135-145); TOTAL CARBON DIOXIDE 22.4 MMOL/L (24-32); TOTAL PROTEIN 6.4 G/DL (6.4-8.2); eGFR 70 ML/MIN
[2017-10-27] MEDS: K and/or MAG REPLACEMENT MC SCH (08:00)
[2017-10-27] MEDS: duloxetine 30mg CAPSULE.DR PO SCH (09:02)
[2017-10-27] MEDS: docusate sod 100mg capsule PO SCH ×2 (09:02→19:17)
[2017-10-27] MEDS: methadone 10mg tablet PO SCH (09:02)
[2017-10-27] MEDS: levetiracetam 250mg tablet PO SCH ×2 (09:03→19:18)
[2017-10-27] MEDS: clonazePAM 1mg tablet PO SCH ×3 (09:03→19:17)
[2017-10-27] MEDS: carBAMazepine 100mg chewable tablet PO SCH ×2 (09:04→19:17)
[2017-10-27] MEDS: heparin, porcine 5000 units/ml vial SQ SCH ×2 (09:07→19:18)
[2017-10-27] MEDS: Protein Shake (high protein) 240ml (8oz) cup PO SCH ×3 (09:08→18:00)
[2017-10-27 10:00] VITALS: BP 150/80
[2017-10-27 17:40] VITALS: BP 114/57
[2017-10-27] MEDS: tamsulosin 0.4mg capsule PO SCH (19:17)
[2017-10-27] MEDS ORDERED: LORazepam 2 mg/ml vial IM ONE (20:25)
[2017-10-27 21:29] LABS: CLARITY,URINE Clear (Clear); COLOR,URINE Yellow (Yellow); GLUCOSE, URINE Negative (Neg); KETONES,URINE Negative (Neg); LEUKOCYTE ESTERASE ,URINE Trace (Neg); NITRITES, URINE Negative (Neg); OCCULT BLOOD,URINE Negative (Neg); PH,URINE 5.5 (4.8-8.0); PROTEIN,URINE Negative (Neg)
[2017-10-27 21:30] LABS: UA COLLECTION TYPE CLN CATCH MIDSTREAM
[2017-10-27 22:12] LABS: BACTERIA,URINE NONE SEEN /HPF (Neg); MUCUS STRANDS NONE SEEN /LPF (Neg); RBC,URINE NONE SEEN /HPF (0-2); SQUAMOUS EPITHELIAL CELL,UR FEW /LPF (FEW); TRANSITIONAL EPI CELLS,URINE FEW /HPF; WBC,URINE 0-4 /HPF (0-4)
[2017-10-28 06:00] VITALS: BP 112/72
[2017-10-28] MEDS: normal saline 1000ml 1,000 ML IV SCH ×2 (06:47→12:45)
[2017-10-28 06:55] LABS: BASOPHILS % (AUTO) 1.4 % (0-1); EOSINOPHILS # (AUTO) 0.2 X10'3 (0-0.9); EOSINOPHILS % (AUTO) 6.7 % (0-6); HEMATOCRIT 31.2 % (42.0-52.0); HEMOGLOBIN 10.5 g/dl (14.0-17.9); LYMPHOCYTES # (AUTO) 0.8 X10'3 (1.1-4.8); LYMPHOCYTES % (AUTO) 23.6 % (21-51); MEAN CORPUSCULAR HEMOGLOBIN 30.2 PG (27.0-31.0); MEAN CORPUSCULAR HGB CONC 33.5 % (33.0-36.5); MEAN PLATELET VOLUME 8.3 FL (7.4-10.4); MONOCYTES # (AUTO) 0.4 X10'3 (0-0.9); MONOCYTES % (AUTO) 10.8 % (2-12); NEUTROPHILS # (AUTO) 1.9 X10'3 (1.8-7.7); NEUTROPHILS % (AUTO) 57.5 % (42-75); PLATELET COUNT 151 X10'3 (140-440); RED BLOOD COUNT 3.47 X10'6 (4.70-6.10); RED CELL DISTRIBUTION WIDTH 15.7 % (11.5-14.5); WHITE BLOOD COUNT 3.3 X10'3 (4.5-11.0)
[2017-10-28 07:09] LABS: ALANINE AMINOTRANSFERASE 28 U/L (12-78); ALBUMIN 2.9 G/DL (3.4-5.0); ALBUMIN/GLOBULIN RATIO 0.7 (1.1-1.5); ALKALINE PHOSPHATASE 78 IU/L (46-116); ANION GAP 8 (8-16); ASPARTATE AMINO TRANSFERASE 14 U/L (10-37); BILIRUBIN,TOTAL 0.3 MG/DL (0.1-1.0); BLOOD UREA NITROGEN 22 MG/DL (7-18); BUN/CREATININE RATIO 19.6 (5.4-32.0); CALCIUM 9.5 MG/DL (8.5-10.1); CHLORIDE 109 MMOL/L (99-107); CREATININE 1.12 MG/DL (0.60-1.10); GLUCOSE 91 MG/DL (70-104); MAGNESIUM 2.1 MG/DL (1.5-2.4); POTASSIUM 4.3 MMOL/L (3.5-5.1); SODIUM 141 MMOL/L (135-145); TOTAL CARBON DIOXIDE 24.2 MMOL/L (24-32); TOTAL PROTEIN 6.9 G/DL (6.4-8.2); eGFR 64 ML/MIN
[2017-10-28] MEDS: K and/or MAG REPLACEMENT MC SCH (08:00)
[2017-10-28] MEDS: Protein Shake (high protein) 240ml (8oz) cup PO SCH ×3 (08:25→18:00)
[2017-10-28] MEDS: docusate sod 100mg capsule PO SCH ×2 (08:29→19:20)
[2017-10-28] MEDS: methadone 10mg tablet PO SCH (08:29)
[2017-10-28] MEDS: clonazePAM 1mg tablet PO SCH ×3 (08:29→19:20)
[2017-10-28] MEDS: levetiracetam 250mg tablet PO SCH ×2 (08:30→19:20)
[2017-10-28] MEDS: duloxetine 30mg CAPSULE.DR PO SCH (08:30)
[2017-10-28] MEDS: carBAMazepine 100mg chewable tablet PO SCH ×2 (08:30→19:24)
[2017-10-28 11:00] VITALS: BP 119/73
[2017-10-28] MEDS ORDERED: olanzapine 10mg tablet PO STA (11:29)
[2017-10-28] MEDS ORDERED: olanzapine 10mg tablet PO ONE (12:35)
[2017-10-28 18:10] VITALS: BP 127/79
[2017-10-28] MEDS: tamsulosin 0.4mg capsule PO SCH (19:20)
[2017-10-29] MEDS: normal saline 1000ml 1,000 ML IV SCH (02:05)
[2017-10-29 06:00] VITALS: BP 121/75
[2017-10-29] MEDS: K and/or MAG REPLACEMENT MC SCH (08:00)
[2017-10-29] MEDS: Protein Shake (high protein) 240ml (8oz) cup PO SCH ×3 (08:18→20:09)
[2017-10-29] MEDS: duloxetine 30mg CAPSULE.DR PO SCH (08:18)
[2017-10-29] MEDS: methadone 10mg tablet PO SCH (08:18)
[2017-10-29] MEDS: levetiracetam 250mg tablet PO SCH ×2 (08:18→20:08)
[2017-10-29] MEDS: clonazePAM 1mg tablet PO SCH ×3 (08:18→20:08)
[2017-10-29] MEDS: docusate sod 100mg capsule PO SCH ×2 (08:18→20:08)
[2017-10-29] MEDS: OLANZapine 2.5MG tablet PO SCH ×2 (08:19→20:08)
[2017-10-29] MEDS: carBAMazepine 100mg chewable tablet PO SCH ×2 (08:19→20:12)
[2017-10-29 10:00] VITALS: BP 114/71
[2017-10-29 18:40] VITALS: BP 105/75
[2017-10-29] MEDS: tamsulosin 0.4mg capsule PO SCH (20:08)
[2017-10-29 22:00] VITALS: BP 115/78
[2017-10-30 06:00] VITALS: BP 141/78
[2017-10-30] MEDS ORDERED: albuterol 2.5 MG/3 ML nebule NEB ONE (08:00)
[2017-10-30] MEDS: K and/or MAG REPLACEMENT MC SCH (08:00)
[2017-10-30] MEDS: duloxetine 30mg CAPSULE.DR PO SCH (09:26)
[2017-10-30] MEDS: OLANZapine 2.5MG tablet PO SCH ×2 (09:26→21:25)
[2017-10-30] MEDS: carBAMazepine 100mg chewable tablet PO SCH ×2 (09:26→21:29)
[2017-10-30] MEDS: Protein Shake (high protein) 240ml (8oz) cup PO SCH ×3 (09:27→18:00)
[2017-10-30] MEDS: docusate sod 100mg capsule PO SCH ×2 (09:27→21:28)
[2017-10-30] MEDS: levetiracetam 250mg tablet PO SCH ×2 (09:27→20:51)
[2017-10-30] MEDS: clonazePAM 1mg tablet PO SCH ×3 (09:27→21:27)
[2017-10-30] MEDS: methadone 10mg tablet PO SCH (09:27)
[2017-10-30 10:00] VITALS: BP 118/83
[2017-10-30 19:00] VITALS: BP 141/82
[2017-10-30] MEDS: tamsulosin 0.4mg capsule PO SCH (21:29)
[2017-10-30 22:00] VITALS: BP 104/67
[2017-10-31 06:00] VITALS: BP 116/69
[2017-10-31] MEDS: OLANZapine 2.5MG tablet PO SCH (07:57)
[2017-10-31] MEDS: clonazePAM 1mg tablet PO SCH ×2 (07:58→13:04)
[2017-10-31] MEDS: methadone 10mg tablet PO SCH (07:58)
[2017-10-31] MEDS: magnesium hydroxide 30ml (MOM) UD suspension PO PRN (07:58)
[2017-10-31] MEDS: carBAMazepine 100mg chewable tablet PO SCH (07:58)
[2017-10-31] MEDS: docusate sod 100mg capsule PO SCH (07:58)
[2017-10-31] MEDS: levetiracetam 250mg tablet PO SCH (07:58)
[2017-10-31] MEDS: duloxetine 30mg CAPSULE.DR PO SCH (07:58)
[2017-10-31] MEDS: K and/or MAG REPLACEMENT MC SCH (08:00)
[2017-10-31 08:05] LABS: BASOPHILS % (AUTO) 0.5 % (0-1); EOSINOPHILS # (AUTO) 0.3 X10'3 (0-0.9); EOSINOPHILS % (AUTO) 4.7 % (0-6); HEMATOCRIT 35.1 % (42.0-52.0); HEMOGLOBIN 11.7 g/dl (14.0-17.9); LYMPHOCYTES # (AUTO) 0.6 X10'3 (1.1-4.8); LYMPHOCYTES % (AUTO) 11.1 % (21-51); MEAN CORPUSCULAR HEMOGLOBIN 30.5 PG (27.0-31.0); MEAN CORPUSCULAR HGB CONC 33.4 % (33.0-36.5); MEAN CORPUSCULAR VOLUME 91.3 FL (78-98); MEAN PLATELET VOLUME 8.7 FL (7.4-10.4); MONOCYTES # (AUTO) 0.4 X10'3 (0-0.9); MONOCYTES % (AUTO) 6.3 % (2-12); NEUTROPHILS # (AUTO) 4.3 X10'3 (1.8-7.7); NEUTROPHILS % (AUTO) 77.4 % (42-75); PLATELET COUNT 150 X10'3 (140-440); RED BLOOD COUNT 3.85 X10'6 (4.70-6.10); RED CELL DISTRIBUTION WIDTH 15.6 % (11.5-14.5); WHITE BLOOD COUNT 5.6 X10'3 (4.5-11.0)
[2017-10-31 08:15] LABS: PROTHROMBIN TIME 10.1 SECONDS (9.0-12.0)
[2017-10-31 08:19] LABS: ALANINE AMINOTRANSFERASE 28 U/L (12-78); ALBUMIN 3.1 G/DL (3.4-5.0); ALBUMIN/GLOBULIN RATIO 0.7 (1.1-1.5); ALKALINE PHOSPHATASE 107 IU/L (46-116); ANION GAP 10 (8-16); ASPARTATE AMINO TRANSFERASE 13 U/L (10-37); BILIRUBIN,TOTAL 0.3 MG/DL (0.1-1.0); BLOOD UREA NITROGEN 30 MG/DL (7-18); BUN/CREATININE RATIO 23.4 (5.4-32.0); CALCIUM 9.4 MG/DL (8.5-10.1); CHLORIDE 108 MMOL/L (99-107); CREATININE 1.28 MG/DL (0.60-1.10); GLUCOSE 92 MG/DL (70-104); POTASSIUM 4.4 MMOL/L (3.5-5.1); SODIUM 142 MMOL/L (135-145); TOTAL CARBON DIOXIDE 24.3 MMOL/L (24-32); TOTAL PROTEIN 7.5 G/DL (6.4-8.2); eGFR 55 ML/MIN
[2017-10-31 10:00] VITALS: BP 117/84
== END 2017-10-31 13:15 | disposition home or self-care (01) | DRG 870 ==
LOC: ER 11:14 → ED HOLD 13:51 → ICU 2S 15:39 → PCU 3S 09-27 19:45 → ORTHO 4S 10-15 17:00
PROVIDERS: ATTEND Internal Medicine
PROC: 5A1955Z Respiratory Ventilation, Greater than 96 Consecutive Hours (ICD-10-PCS; principal; 2017-09-18)
PROC: 0BH18EZ Insertion of Endotracheal Airway into Trachea, Via Natural or Artificial Opening Endoscopic (ICD-10-PCS; 2017-09-18)
PROC: 05HM33Z Insertion of Infusion Device into Right Internal Jugular Vein, Percutaneous Approach (ICD-10-PCS; 2017-09-18)
DX: A41.9 Sepsis, unspecified organism (principal); J96.00 Acute respiratory failure, unspecified whether with hypoxia or hypercapnia; J91.8 Pleural effusion in other conditions classified elsewhere; J15.5 Pneumonia due to Escherichia coli; N17.9 Acute kidney failure, unspecified; D68.9 Coagulation defect, unspecified; D69.6 Thrombocytopenia, unspecified; F10.27 Alcohol dependence with alcohol-induced persisting dementia; E51.2 Wernicke's encephalopathy; G31.2 Degeneration of nervous system due to alcohol; R45.1 Restlessness and agitation; D64.9 Anemia, unspecified; F10.229 Alcohol dependence with intoxication, unspecified; G40.909 Epilepsy, unspecified, not intractable, without status epilepticus; N18.9 Chronic kidney disease, unspecified; G89.29 Other chronic pain; R65.20 Severe sepsis without septic shock; K76.9 Liver disease, unspecified; Z79.899 Other long term (current) drug therapy; Z75.1 Person awaiting admission to adequate facility elsewhere
CPT/HCPCS: 36415; 36556; 36600; 51702; 70450; 71010; 71250; 74230; 80048; 80053; 80156; 80177; 80305; 80320; 81001; 82140; 82330; 82803; 82810; 82948; 83605; 83735; 83880; 84100; 84132; 84134; 84484; 85018; 85025; 85610; 85730; 86022; 87040; 87070; 87077; 87088; 87186; 92616; 93005; 93306; 94002; 94003; 94640; 94760; 95816; 96365; 96375; 96376; 97110; 97112; 97116; 97161; 97530; 99291; 99292; A4315; A4353; A4357; A4649; A6212; A6213; A6257; A6258; A6446; A6449; C1758; C9113; J0456; J0461; J0610; J0696; J1644; J1940; J1956; J2060; J2250; J2310; J2405; J2765; J3411; J3475; J3480; J3490; J7030; J7060; P9047; Q0163

== ENCOUNTER 2019-03-11 22:29 | Emergency (ER) | payer MEDICAID, MEDICARE ==
[~2019-03-11] VITALS: Ht 180.3 cm; Wt 68.2 kg
[~2019-03-11 22:29] MED LIST: DULO60CA45 PO; FURO-150 PO; KEP500T PO
--- NOTE | 2019-03-11 23:11 | NUR ---
DR. CONCEPCION REPROTS BP IS 87/52, REQUEST 1 LITER NS. PT GIVE 500 CC'S BY EMS, REQUESTS TO GIVEN THE ADTL 500 CCS.
[2019-03-11] MEDS ORDERED: normal saline 1000ML IV soln IVB ONE (23:25)
[2019-03-11 23:46] LABS: BASOPHILS % (AUTO) 0.8 % (0-1); EOSINOPHILS # (AUTO) 0.3 X10'3 (0-0.9); EOSINOPHILS % (AUTO) 4.8 % (0-6); HEMATOCRIT 30.6 % (42.0-52.0); LYMPHOCYTES # (AUTO) 0.8 X10'3 (1.1-4.8); LYMPHOCYTES % (AUTO) 15.6 % (21-51); MEAN CORPUSCULAR HGB CONC 32.5 g/dL (33.0-36.5); MEAN CORPUSCULAR VOLUME 86.3 FL (78-98); MEAN PLATELET VOLUME 8.5 FL (7.4-10.4); MONOCYTES # (AUTO) 0.4 X10'3 (0-0.9); MONOCYTES % (AUTO) 7.5 % (2-12); NEUTROPHILS # (AUTO) 3.8 X10'3 (1.8-7.7); NEUTROPHILS % (AUTO) 71.3 % (42-75); PLATELET COUNT 144 X10'3 (140-440); RED BLOOD COUNT 3.55 X10'6 (4.70-6.10); RED CELL DISTRIBUTION WIDTH 16.2 % (11.5-14.5); WHITE BLOOD COUNT 5.4 X10'3 (4.5-11.0)
[2019-03-11 23:53] LABS: ALANINE AMINOTRANSFERASE 21 U/L (12-78); ALBUMIN 3.4 G/DL (3.4-5.0); ALBUMIN/GLOBULIN RATIO 1.1 (1.1-1.5); ALKALINE PHOSPHATASE 98 IU/L (46-116); ANION GAP 10 (8-16); ASPARTATE AMINO TRANSFERASE 13 U/L (10-37); BILIRUBIN,TOTAL 0.3 MG/DL (0.1-1.0); BLOOD UREA NITROGEN 29 MG/DL (7-18); BUN/CREATININE RATIO 17.4 (5.4-32.0); CALCIUM 8.1 MG/DL (8.5-10.1); CHLORIDE 107 MMOL/L (99-107); CREATININE 1.67 MG/DL (0.60-1.10); GLUCOSE 95 MG/DL (70-104); POTASSIUM 3.5 MMOL/L (3.5-5.1); SODIUM 140 MMOL/L (135-145); TOTAL CARBON DIOXIDE 22.9 MMOL/L (24-32); TOTAL PROTEIN 6.5 G/DL (6.4-8.2); eGFR 41 ML/MIN
[2019-03-11 23:55] LABS: INR 1.1 INR; PARTIAL THROMBOPLASTIN TIME 25 SECONDS (22-32)
[2019-03-12] LABS: MAGNESIUM 1.7 MG/DL (1.5-2.4)
--- NOTE | 2019-03-12 00:05 | NUR ---
VERBAL RECEIVED FOR OXYCODONE 15 MG X1 NOW. PT TAKES THIS AT HOME. OK BY DR. CONCEPCION. PT RECEIVING 2 LILTERS NS BOLUS. THANIA IS AT BEDSIDE.
[2019-03-12] MEDS ORDERED: oxyCODONE IR 5mg (immed. release) tablet PO ONE (00:20)
[2019-03-12 00:25] VITALS: BP 115/61
[2019-03-12] MEDS ORDERED: OXYcodone (OXYCONTIN) Ext Release 15 MG TAB.SR.12H PO SCH (08:00)
== END 2019-03-12 01:14 | disposition home or self-care (01) ==
LOC: ER 22:30
DX: R55 Syncope and collapse (principal); R53.1 Weakness; I95.89 Other hypotension; G89.29 Other chronic pain; Z79.899 Other long term (current) drug therapy
CPT/HCPCS: 36415; 71045; 80053; 83735; 83880; 84484; 85025; 85610; 85730; 93005; 99284; J7030

== ENCOUNTER 2019-04-28 12:42 | Observation (INO) | payer MEDICARE, OTHER ==
[~2019-04-28] VITALS: Ht 177.8 cm; Wt 69.4 kg
[2019-04-28] MEDS ORDERED: aspirin 81mg tab.chew PO ONE (12:50)
[2019-04-28] MEDS ORDERED: ondansetron/PF 4mg/2ml inj IV ONE (13:05)
[2019-04-28] MEDS ORDERED: morphine 4 MG/ML inj SYRINge IV ONE ×2 (13:05→14:45)
[2019-04-28 13:15] LABS: BASOPHILS # (AUTO) 0.1 X10'3 (0-0.2); BASOPHILS % (AUTO) 0.8 % (0-1); EOSINOPHILS # (AUTO) 0.3 X10'3 (0-0.9); EOSINOPHILS % (AUTO) 5.3 % (0-6); HEMATOCRIT 33.8 % (42.0-52.0); HEMOGLOBIN 11.1 g/dl (14.0-17.9); LYMPHOCYTES # (AUTO) 0.8 X10'3 (1.1-4.8); LYMPHOCYTES % (AUTO) 12.9 % (21-51); MEAN CORPUSCULAR HEMOGLOBIN 28.1 PG (27.0-31.0); MEAN CORPUSCULAR HGB CONC 32.7 g/dL (33.0-36.5); MEAN CORPUSCULAR VOLUME 85.9 FL (78-98); MEAN PLATELET VOLUME 8.4 FL (7.4-10.4); MONOCYTES # (AUTO) 0.6 X10'3 (0-0.9); MONOCYTES % (AUTO) 9.1 % (2-12); NEUTROPHILS # (AUTO) 4.4 X10'3 (1.8-7.7); NEUTROPHILS % (AUTO) 71.9 % (42-75); PLATELET COUNT 183 X10'3 (140-440); RED BLOOD COUNT 3.94 X10'6 (4.70-6.10); RED CELL DISTRIBUTION WIDTH 15.7 % (11.5-14.5); WHITE BLOOD COUNT 6.1 X10'3 (4.5-11.0)
[2019-04-28 13:30] LABS: ALANINE AMINOTRANSFERASE 14 U/L (12-78); ALBUMIN 3.6 G/DL (3.4-5.0); ALBUMIN/GLOBULIN RATIO 1.1 (1.1-1.5); ALKALINE PHOSPHATASE 116 IU/L (46-116); ANION GAP 11 (8-16); ASPARTATE AMINO TRANSFERASE 9 U/L (10-37); BILIRUBIN,TOTAL 0.2 MG/DL (0.1-1.0); BLOOD UREA NITROGEN 22 MG/DL (7-18); BUN/CREATININE RATIO 19.6 (5.4-32.0); CALCIUM 8.3 MG/DL (8.5-10.1); CHLORIDE 107 MMOL/L (99-107); CREATININE 1.12 MG/DL (0.60-1.10); GLUCOSE 103 MG/DL (70-104); POTASSIUM 3.9 MMOL/L (3.5-5.1); SODIUM 141 MMOL/L (135-145); TOTAL CARBON DIOXIDE 23.2 MMOL/L (24-32); eGFR 64 ML/MIN
[2019-04-28 13:38] LABS: MAGNESIUM 2.1 MG/DL (1.5-2.4)
[2019-04-28 13:39] LABS: D-DIMER 0.68 MG/L FEU (0-0.50)
[2019-04-28] MEDS ORDERED: nitroGLYCERIN 0.4mg SUBLingual tab SL PRN ×3 (14:25→15:25)
[2019-04-28] MEDS ORDERED: iohexol 350MG/ML 100ml bottle IV ONE (14:57)
[2019-04-28] MEDS ORDERED: acetaminophen 325mg tablet PO PRN (15:00)
[2019-04-28] MEDS ORDERED: mag hydrox/Alum hydrox/simeth 30ml oral suspension PO PRN (15:00)
[2019-04-28] MEDS ORDERED: magnesium hydroxide 30ml (MOM) UD suspension PO PRN (15:00)
[2019-04-28] MEDS ORDERED: morphine 2 MG/ML inj. syringe IV PRN ×2 (15:00)
[2019-04-28] MEDS ORDERED: ondansetron/PF 4mg/2ml inj IV PRN (15:00)
[2019-04-28] MEDS ORDERED: aminophylline 250mg/10ml inj. IV PRN (15:25)
[2019-04-28] MEDS ORDERED: regadenoson 0.4mg/5ml syringe IV ONE (15:25)
[2019-04-28] MEDS ORDERED: metoprolol tartrate 1mg/ml inj IV PRN (15:25)
[2019-04-28] MEDS ORDERED: ALPR1TAB7 PO (15:27)
[2019-04-28] MEDS ORDERED: ATOR10TA70 PO (15:27)
[2019-04-28] MEDS ORDERED: OMEP-50 PO (15:27)
[2019-04-28] MEDS ORDERED: LEVE500T PO (15:27)
[2019-04-28] MEDS ORDERED: FLO0.4C PO (15:27)
[2019-04-28] MEDS ORDERED: DULO60CA64 PO (15:27)
[2019-04-28] MEDS: nicotine 7mg patch - 24hr TD SCH (15:30)
[2019-04-28 15:41] LABS: HEMOGLOBIN A1C 5.7 % (4.5-6.2)
[2019-04-28] MEDS ORDERED: regadenoson 0.4mg/5ml syringe IV PRN (15:50)
[2019-04-28 18:00] VITALS: BP 121/58
--- NOTE | 2019-04-28 18:00 | NUR ---
Patient in room MED 311. I have received report from NELSON Ho (orientee) and Kirit RN and had the opportunity to ask questions and assume patient care.
--- NOTE | 2019-04-28 18:28 | NUR ---
Problems reprioritized. Patient report given, questions answered & plan of care reviewed with NELSON Breen.
[2019-04-28] MEDS: HYDROcodone/acetaminophen 5mg/325mg tablet PO PRN (19:25)
[2019-04-28] MEDS ORDERED: temazepam 15mg capsule PO PRN (20:30)
--- NOTE | 2019-04-28 20:31 | NUR ---
The pt. requested to have something tonight to help him sleep. I called Dr. Lin and he said that would be ok. Restoril 15mg hs.
[2019-04-28 22:00] VITALS: BP 112/58
[2019-04-29] VITALS (12 sets, daily range): BP systolic 101–141; BP diastolic 56–69
[2019-04-29 01:29] LABS: BASOPHILS % (AUTO) 0.8 % (0-1); EOSINOPHILS # (AUTO) 0.3 X10'3 (0-0.9); EOSINOPHILS % (AUTO) 6.1 % (0-6); HEMATOCRIT 32.7 % (42.0-52.0); HEMOGLOBIN 10.6 g/dl (14.0-17.9); LYMPHOCYTES # (AUTO) 0.7 X10'3 (1.1-4.8); LYMPHOCYTES % (AUTO) 13.3 % (21-51); MEAN CORPUSCULAR HEMOGLOBIN 27.8 PG (27.0-31.0); MEAN CORPUSCULAR HGB CONC 32.5 g/dL (33.0-36.5); MEAN CORPUSCULAR VOLUME 85.5 FL (78-98); MEAN PLATELET VOLUME 8.5 FL (7.4-10.4); MONOCYTES # (AUTO) 0.5 X10'3 (0-0.9); MONOCYTES % (AUTO) 8.5 % (2-12); NEUTROPHILS # (AUTO) 3.9 X10'3 (1.8-7.7); NEUTROPHILS % (AUTO) 71.3 % (42-75); PLATELET COUNT 158 X10'3 (140-440); RED BLOOD COUNT 3.82 X10'6 (4.70-6.10); RED CELL DISTRIBUTION WIDTH 15.7 % (11.5-14.5); WHITE BLOOD COUNT 5.5 X10'3 (4.5-11.0)
[2019-04-29 01:38] LABS: ALBUMIN 3.5 G/DL (3.4-5.0); ANION GAP 7 (8-16); BLOOD UREA NITROGEN 26 MG/DL (7-18); BUN/CREATININE RATIO 17.9 (5.4-32.0); CALCIUM 8.9 MG/DL (8.5-10.1); CHLORIDE 108 MMOL/L (99-107); CHOLESTEROL 144 MG/DL (0-200); CREATININE 1.45 MG/DL (0.60-1.10); GLUCOSE 92 MG/DL (70-104); HDL CHOLESTEROL 36 MG/DL (35-60); LDL CHOLESTEROL 96 MG/DL (50-100); POTASSIUM 4.1 MMOL/L (3.5-5.1); SODIUM 138 MMOL/L (135-145); TOTAL CARBON DIOXIDE 23.3 MMOL/L (24-32); TRIGLYCERIDES 103 MG/DL (20-135); eGFR 48 ML/MIN
[2019-04-29 07:21] LABS: MAGNESIUM 2.1 MG/DL (1.5-2.4)
[2019-04-29] MEDS ORDERED: aspirin 81mg tablet.DR PO SCH (08:00)
[2019-04-29] MEDS: nicotine 7mg patch - 24hr TD SCH (08:59)
[2019-04-29] MEDS ORDERED: ALPRAZolam 0.5mg tablet PO PRN (09:05)
[2019-04-29] MEDS ORDERED: duloxetine 30mg CAPSULE.DR PO SCH (09:30)
[2019-04-29] MEDS ORDERED: levetiracetam 250mg tablet PO SCH (09:30)
[2019-04-29] MEDS ORDERED: regadenoson 0.4mg/5ml syringe IV ONE (09:37)
[2019-04-29] MEDS ORDERED: aminophylline inj. 10 ML IV ONE (09:37)
--- NOTE | 2019-04-29 11:05 | NUR ---
PATIENT THINKS HE MAY HAVE DROPPED PILL AT [facility] POST MRI SCAN; EXHAUSTIVE SEARCH FOR PILL, NOTHING FOUND
--- NOTE | 2019-04-29 11:05 | NUR ---
Orientee documentation: I have reviewed and agree with all interventions, assessments performed and documented by Georgia DAMON.
--- NOTE | 2019-04-29 12:45 | NUR ---
Pt continues to have angry outbursts. Pt angry for multiple reasons, i.e. we are ignoring him, we are keeping him hungry, etc. (meal has been ordered and pt has been informed)
[2019-04-29] MEDS: HYDROcodone/acetaminophen 5mg/325mg tablet PO PRN (13:34)
--- NOTE | 2019-04-29 14:46 | NUR ---
Pt IV removed, tip intact. Pt given DC instructions. All questions answered. All known pt property with pt. Pt assisted to lobby to await the cab that was arranged for him.
[2019-04-29] MEDS ORDERED: atorvastatin 10mg tablet PO SCH (21:00)
[2019-04-29] MEDS ORDERED: tamsulosin 0.4mg capsule PO SCH (21:00)
[2019-04-30] MEDS ORDERED: pantoprazole 40mg Tablet.DR PO SCH (07:30)
== END 2019-04-29 14:59 | disposition home or self-care (01) ==
LOC: ER 12:42 → MED 3N 15:23 → INTOOBSV 15:23
PROVIDERS: ADMIT Internal Medicine; ATTEND Internal Medicine
DX: R07.9 Chest pain, unspecified (principal); F32.9 Major depressive disorder, single episode, unspecified; F17.210 Nicotine dependence, cigarettes, uncomplicated; G89.29 Other chronic pain; D64.9 Anemia, unspecified; Z86.69 Personal history of other diseases of the nervous system and sense organs
CPT/HCPCS: 36415; 71045; 71275; 78452; 80048; 80053; 80061; 83036; 83735; 83880; 84484; 85025; 85379; 87081; 93005; 93017; 96374; 96375; 96376; 99284; A9500; G0378; J0280; J2270; J2405; J2785; Q9967; 99285

== ENCOUNTER 2019-05-18 19:20 | Emergency (ER) | payer MEDICARE ==
[~2019-05-18] VITALS: Ht 180.3 cm; Wt 69.5 kg
[~2019-05-18 19:20] MED LIST changes: +ALPR1TAB7 PO; +ATOR10TA70 PO; -DULO60CA45 PO; +DULO60CA65 PO; +FLO0.4C PO; -FURO-150 PO; -KEP500T PO; +LEVE500T PO; +OMEP-50 PO
[2019-05-18 20:54] LABS: BASOPHILS % (AUTO) 0.9 % (0-1); EOSINOPHILS # (AUTO) 0.2 X10'3 (0-0.9); HEMATOCRIT 31.5 % (42.0-52.0); HEMOGLOBIN 10.4 g/dl (14.0-17.9); LYMPHOCYTES # (AUTO) 0.8 X10'3 (1.1-4.8); LYMPHOCYTES % (AUTO) 22.7 % (21-51); MEAN CORPUSCULAR HEMOGLOBIN 28.5 PG (27.0-31.0); MEAN CORPUSCULAR HGB CONC 33.2 g/dL (33.0-36.5); MEAN PLATELET VOLUME 8.9 FL (7.4-10.4); MONOCYTES # (AUTO) 0.5 X10'3 (0-0.9); MONOCYTES % (AUTO) 13.4 % (2-12); PLATELET COUNT 140 X10'3 (140-440); RED BLOOD COUNT 3.66 X10'6 (4.70-6.10); RED CELL DISTRIBUTION WIDTH 16.1 % (11.5-14.5); WHITE BLOOD COUNT 3.5 X10'3 (4.5-11.0)
[2019-05-18 21:02] LABS: ALANINE AMINOTRANSFERASE 17 U/L (12-78); ALBUMIN 3.3 G/DL (3.4-5.0); ALBUMIN/GLOBULIN RATIO 0.9 (1.1-1.5); ALKALINE PHOSPHATASE 118 IU/L (46-116); ANION GAP 5 (8-16); ASPARTATE AMINO TRANSFERASE 10 U/L (10-37); BILIRUBIN,TOTAL 0.4 MG/DL (0.1-1.0); BLOOD UREA NITROGEN 14 MG/DL (7-18); BUN/CREATININE RATIO 11.5 (5.4-32.0); CALCIUM 8.6 MG/DL (8.5-10.1); CHLORIDE 106 MMOL/L (99-107); CREATININE 1.22 MG/DL (0.60-1.10); GLUCOSE 83 MG/DL (70-104); POTASSIUM 3.7 MMOL/L (3.5-5.1); SODIUM 140 MMOL/L (135-145); TOTAL CARBON DIOXIDE 28.7 MMOL/L (24-32); TOTAL PROTEIN 6.8 G/DL (6.4-8.2); eGFR 58 ML/MIN
[2019-05-18 21:04] LABS: LIPASE 88 U/L (73-393); TROPONIN I < 0.04 NG/ML (0.0-0.05)
[2019-05-18] MEDS ORDERED: ondansetron/PF 4mg/2ml inj IV ONE (21:10)
[2019-05-18] MEDS ORDERED: buprenorphine/naloxone 8mg/2mg SL tablet SL PRN (21:10)
[2019-05-18 21:33] LABS: CLARITY,URINE CLEAR (Clear); COLOR,URINE YELLOW (Yellow); GLUCOSE, URINE NEGATIVE (Neg); KETONES,URINE NEGATIVE (Neg); LEUKOCYTE ESTERASE ,URINE NEGATIVE (Neg); NITRITES, URINE NEGATIVE (Neg); OCCULT BLOOD,URINE NEGATIVE (Neg); PH,URINE 8.5 (4.8-8.0); PROTEIN,URINE TRACE mg/dl (Neg); UROBILINOGEN,URINE 0.2 E.U/dL (0.2-1.0)
[2019-05-18 21:39] LABS: UA COLLECTION TYPE CLN CATCH MIDSTREAM
[2019-05-18 21:40] LABS: BACTERIA,URINE NONE SEEN /HPF (Neg); RBC,URINE 0-2 /HPF (0-2); SQUAMOUS EPITHELIAL CELL,UR FEW /LPF (FEW); WBC,URINE NONE SEEN /HPF (0-4)
[2019-05-18] MEDS ORDERED: ONDA4TAB6 PO (22:23)
[2019-05-18] MEDS ORDERED: CLON-529 PO (22:23)
[2019-05-18 22:40] VITALS: BP 154/84
== END 2019-05-18 22:47 | disposition home or self-care (01) ==
LOC: ER 19:21
DX: F11.23 Opioid dependence with withdrawal (principal); D72.819 Decreased white blood cell count, unspecified; D61.818 Other pancytopenia; G89.29 Other chronic pain; Z79.899 Other long term (current) drug therapy
CPT/HCPCS: 36415; 71045; 80053; 81001; 83690; 84484; 85025; 85610; 93005; 96374; 99284; J2405

== ENCOUNTER 2019-06-01 16:35 | Inpatient (IN) | payer MEDICARE, OTHER ==
[~2019-06-01] VITALS: Ht 180.3 cm; Wt 65.9 kg
[~2019-06-01 16:35] MED LIST changes: +CLON-529 PO; +ONDA4TAB6 PO
[2019-06-01] MEDS ORDERED: ondansetron/PF 4mg/2ml inj IV ONE (16:50)
[2019-06-01] MEDS ORDERED: normal saline 1000ML IV soln IVB ONE (16:50)
[2019-06-01] MEDS ORDERED: fentaNYL/PF 50MCG/1 ML 2ML syringe IV ONE (17:00)
[2019-06-01 17:06] LABS: HEMOGLOBIN 12.5 g/dl (14.0-17.9)
[2019-06-01 17:09] LABS: BASOPHILS # (AUTO) 0.1 X10'3 (0-0.2); BASOPHILS % (AUTO) 1.3 % (0-1); EOSINOPHILS # (AUTO) 0.1 X10'3 (0-0.9); EOSINOPHILS % (AUTO) 3.3 % (0-6); HEMATOCRIT 37.1 % (42.0-52.0); LYMPHOCYTES # (AUTO) 0.8 X10'3 (1.1-4.8); LYMPHOCYTES % (AUTO) 20.4 % (21-51); MEAN CORPUSCULAR HEMOGLOBIN 28.6 PG (27.0-31.0); MEAN CORPUSCULAR HGB CONC 33.8 g/dL (33.0-36.5); MEAN CORPUSCULAR VOLUME 84.5 FL (78-98); MONOCYTES # (AUTO) 0.5 X10'3 (0-0.9); MONOCYTES % (AUTO) 11.6 % (2-12); NEUTROPHILS # (AUTO) 2.5 X10'3 (1.8-7.7); NEUTROPHILS % (AUTO) 63.4 % (42-75); PLATELET COUNT 197 X10'3 (140-440); RED BLOOD COUNT 4.39 X10'6 (4.70-6.10); RED CELL DISTRIBUTION WIDTH 16.7 % (11.5-14.5)
[2019-06-01 17:25] LABS: ALANINE AMINOTRANSFERASE 15 U/L (12-78); ALKALINE PHOSPHATASE 144 IU/L (46-116); ANION GAP 12 (8-16); ASPARTATE AMINO TRANSFERASE 14 U/L (10-37); BILIRUBIN,TOTAL 0.6 MG/DL (0.1-1.0); BLOOD UREA NITROGEN 36 MG/DL (7-18); CALCIUM 8.9 MG/DL (8.5-10.1); CHLORIDE 104 MMOL/L (99-107); GLUCOSE 97 MG/DL (70-104); POTASSIUM 3.8 MMOL/L (3.5-5.1); SODIUM 142 MMOL/L (135-145); TOTAL CARBON DIOXIDE 26.1 MMOL/L (24-32); TOTAL PROTEIN 7.9 G/DL (6.4-8.2); eGFR 33 ML/MIN
[2019-06-01 17:48] LABS: ETHANOL < 0.010 GM/DL (0.0-0.010)
[2019-06-01] MEDS ORDERED: FURO20TA4 PO (18:02)
[2019-06-01] MEDS ORDERED: ATEN25TA PO ×2 (18:02→21:34)
[2019-06-01] MEDS ORDERED: OXYC15TA88 PO (18:02)
[2019-06-01 18:08] LABS: CLARITY,URINE CLEAR (Clear); COLOR,URINE YELLOW (Yellow); GLUCOSE, URINE NEGATIVE (Neg); KETONES,URINE NEGATIVE (Neg); LEUKOCYTE ESTERASE ,URINE NEGATIVE (Neg); NITRITES, URINE NEGATIVE (Neg); OCCULT BLOOD,URINE NEGATIVE (Neg); PROTEIN,URINE NEGATIVE (Neg)
[2019-06-01 18:10] LABS: UA COLLECTION TYPE VOIDED
[2019-06-01] MEDS ORDERED: morphine 4 MG/ML inj SYRINge IV ONE (18:10)
[2019-06-01] MEDS ORDERED: meclizine 12.5mg tablet PO ONE (18:10)
[2019-06-01 18:11] LABS: URINE AMPHETAMINE SCREEN NEGATIVE (Neg); URINE BARBITUATE SCREEN NEGATIVE (Neg); URINE BENZODIAZEPINES SCREEN NEGATIVE (Neg); URINE CANNABINOID SCREEN NEGATIVE (Neg); URINE COCAINE SCREEN NEGATIVE (Neg); URINE METHADONE SCREEN NEGATIVE (Neg); URINE OPIATE SCREEN NEGATIVE (Neg); URINE PHENCYCLIDINE SCREEN NEGATIVE (Neg)
[2019-06-01] MEDS ORDERED: FLO0.4C PO (18:20)
--- NOTE | 2019-06-01 18:20 | NUR ---
notified dr gonzalez that pt co headache 08/07.as per he will order something for pain also informed that pt was not able to ambulate as pt is feelinf dizzy.
[2019-06-01] MEDS ORDERED: potassium CL 10mEq/100ml bag 100 ML IV PRN ×2 (20:30)
[2019-06-01] MEDS ORDERED: magnesium 4gm in 100ml NS 100 ML IV PRN (20:30)
[2019-06-01] MEDS ORDERED: magnesium 2GM in 50ml NS 50 ML IV PRN (20:30)
[2019-06-01] MEDS ORDERED: potassium Cl 20 mEq SR tablet PO PRN ×2 (20:30)
[2019-06-01] MEDS ORDERED: magnesium Cl slow-release 64mg tablet PO PRN (20:30)
[2019-06-01] MEDS ORDERED: OXYC-615 PO (21:34)
[2019-06-01] MEDS ORDERED: FURO-150 PO (21:34)
[2019-06-01] MEDS: atenolol 25mg tablet PO SCH (22:05)
[2019-06-01 22:15] VITALS: BP 127/82
[2019-06-01] MEDS: normal saline 1000ml 1,000 ML IV SCH (22:58)
[2019-06-02] MEDS ORDERED: piperacillin/tazo 3.375gm/50ml 50 ML IV SCH
[2019-06-02 05:14] LABS: BASOPHILS # (AUTO) 0.1 X10'3 (0-0.2); BASOPHILS % (AUTO) 1.4 % (0-1); EOSINOPHILS # (AUTO) 0.3 X10'3 (0-0.9); EOSINOPHILS % (AUTO) 6.8 % (0-6); HEMOGLOBIN 10.6 g/dl (14.0-17.9); LYMPHOCYTES # (AUTO) 1.3 X10'3 (1.1-4.8); LYMPHOCYTES % (AUTO) 28.1 % (21-51); MEAN CORPUSCULAR HEMOGLOBIN 28.4 PG (27.0-31.0); MEAN CORPUSCULAR HGB CONC 33.2 g/dL (33.0-36.5); MEAN CORPUSCULAR VOLUME 85.6 FL (78-98); MEAN PLATELET VOLUME 9.1 FL (7.4-10.4); MONOCYTES # (AUTO) 0.5 X10'3 (0-0.9); MONOCYTES % (AUTO) 11.3 % (2-12); NEUTROPHILS # (AUTO) 2.4 X10'3 (1.8-7.7); NEUTROPHILS % (AUTO) 52.4 % (42-75); PLATELET COUNT 147 X10'3 (140-440); RED BLOOD COUNT 3.74 X10'6 (4.70-6.10); RED CELL DISTRIBUTION WIDTH 16.4 % (11.5-14.5); WHITE BLOOD COUNT 4.6 X10'3 (4.5-11.0)
[2019-06-02 05:29] LABS: ALBUMIN 3.3 G/DL (3.4-5.0); ANION GAP 7 (8-16); BLOOD UREA NITROGEN 34 MG/DL (7-18); CALCIUM 8.5 MG/DL (8.5-10.1); CHLORIDE 107 MMOL/L (99-107); GLUCOSE 79 MG/DL (70-104); POTASSIUM 3.6 MMOL/L (3.5-5.1); SODIUM 143 MMOL/L (135-145); TOTAL CARBON DIOXIDE 29.1 MMOL/L (24-32); eGFR 40 ML/MIN
--- NOTE | 2019-06-02 06:01 | NUR ---
Report given to shaka Hamilton.
[2019-06-02 06:56] VITALS: BP 105/55
[2019-06-02] MEDS: atenolol 25mg tablet PO SCH (07:20)
[2019-06-02] MEDS ORDERED: LACTOBACILLUS RHAMNOSUS GG 15 billion unit sprinkle caps PO SCH (07:30)
[2019-06-02] MEDS: levetiracetam 250mg tablet PO SCH ×2 (07:36→20:25)
[2019-06-02] MEDS: pantoprazole 40mg Tablet.DR PO SCH ×2 (07:36→20:25)
[2019-06-02] MEDS: tamsulosin 0.4mg capsule PO SCH (07:36)
[2019-06-02 08:00] VITALS: BP_SYST 83; BP_SYST 84; BP_SYST 90; BP_DIAS 38; BP_DIAS 41; BP_DIAS 47
[2019-06-02] MEDS: K and/or MAG REPLACEMENT MC SCH (08:00)
[2019-06-02] MEDS: normal saline 1000ml 1,000 ML IV SCH (11:01)
[2019-06-02] MEDS: ondansetron/PF 4mg/2ml inj IV PRN (12:22)
[2019-06-02] MEDS ORDERED: ESOMEPRAZOLE 40 MG VIAL IV SCH (17:00)
[2019-06-02] MEDS ORDERED: pantoprazole 40mg Tablet.DR PO ONE (17:05)
[2019-06-02 18:00] VITALS: BP 99/55
[2019-06-02] MEDS ORDERED: famotidine 20mg tablet PO SCH (21:00)
[2019-06-02 22:00] VITALS: BP 115/59
[2019-06-02] MEDS ORDERED: Melatonin 3mg tablet PO ONE (22:40)
[2019-06-02] MEDS ORDERED: acetaminophen 325mg tablet PO PRN (22:40)
[2019-06-03] MEDS: normal saline 1000ml 1,000 ML IV SCH ×2 (02:18→07:01)
[2019-06-03 06:05] LABS: ANION GAP 10 (8-16); BLOOD UREA NITROGEN 23 MG/DL (7-18); CALCIUM 8.5 MG/DL (8.5-10.1); CHLORIDE 110 MMOL/L (99-107); CREATININE 1.44 MG/DL (0.60-1.10); GLUCOSE 80 MG/DL (70-104); MAGNESIUM 1.9 MG/DL (1.5-2.4); POTASSIUM 3.6 MMOL/L (3.5-5.1); SODIUM 143 MMOL/L (135-145); TOTAL CARBON DIOXIDE 23.4 MMOL/L (24-32); eGFR 48 ML/MIN
[2019-06-03 06:08] LABS: BASOPHILS % (AUTO) 1.3 % (0-1); EOSINOPHILS # (AUTO) 0.3 X10'3 (0-0.9); EOSINOPHILS % (AUTO) 8.5 % (0-6); HEMATOCRIT 28.3 % (42.0-52.0); HEMOGLOBIN 9.6 g/dl (14.0-17.9); LYMPHOCYTES # (AUTO) 0.9 X10'3 (1.1-4.8); LYMPHOCYTES % (AUTO) 29.2 % (21-51); MEAN CORPUSCULAR HEMOGLOBIN 29.2 PG (27.0-31.0); MEAN CORPUSCULAR HGB CONC 33.9 g/dL (33.0-36.5); MEAN CORPUSCULAR VOLUME 86.4 FL (78-98); MONOCYTES # (AUTO) 0.3 X10'3 (0-0.9); MONOCYTES % (AUTO) 10.6 % (2-12); NEUTROPHILS # (AUTO) 1.6 X10'3 (1.8-7.7); NEUTROPHILS % (AUTO) 50.4 % (42-75); PLATELET COUNT 106 X10'3 (140-440); RED BLOOD COUNT 3.27 X10'6 (4.70-6.10); RED CELL DISTRIBUTION WIDTH 15.9 % (11.5-14.5); WHITE BLOOD COUNT 3.1 X10'3 (4.5-11.0)
--- NOTE | 2019-06-03 06:34 | NUR ---
Received report from marian DAMON
[2019-06-03] MEDS: pantoprazole 40mg Tablet.DR PO SCH (07:31)
[2019-06-03] MEDS: levetiracetam 250mg tablet PO SCH (07:31)
[2019-06-03] MEDS: tamsulosin 0.4mg capsule PO SCH (07:31)
[2019-06-03 08:00] VITALS: BP_SYST 125; BP_SYST 131; BP_DIAS 70; BP_DIAS 71; BP_DIAS 74
[2019-06-03] MEDS ORDERED: atenolol 25mg tablet PO SCH (08:00)
[2019-06-03] MEDS: K and/or MAG REPLACEMENT MC SCH (08:00)
[2019-06-03 09:45] VITALS: BP 102/63
[2019-06-03 09:55] VITALS: BP 138/61
[2019-06-03] MEDS: ondansetron/PF 4mg/2ml inj IV PRN (12:07)
[2019-06-03] MEDS ORDERED: ALPR1TAB7 PO (13:23)
[2019-06-03] MEDS ORDERED: ATEN-168 PO (13:23)
--- NOTE | 2019-06-03 14:02 | NUR ---
Patient was discharged iv and tele was removed from patient. patient was alert and oriented at time of discharge. Precrption was called into [facility] in [place]
== END 2019-06-03 13:50 | disposition home or self-care (01) | DRG 684 ==
LOC: ER 16:35 → ORTHO 4S 22:06 → OBSVTOIN 22:06 → CMPBEDREQ 06-02 15:16
PROVIDERS: ADMIT Internal Medicine; ATTEND Internal Medicine
DX: N17.9 Acute kidney failure, unspecified (principal); E86.0 Dehydration; I10 Essential (primary) hypertension; N40.0 Benign prostatic hyperplasia without lower urinary tract symptoms; S09.90XA Unspecified injury of head, initial encounter; W18.39XA Other fall on same level, initial encounter; T50.2X5A Adverse effect of carbonic-anhydrase inhibitors, benzothiadiazides and other diuretics, initial encounter; T40.695A Adverse effect of other narcotics, initial encounter; F17.210 Nicotine dependence, cigarettes, uncomplicated; G89.29 Other chronic pain; M54.2 Cervicalgia; Y93.89 Activity, other specified; Y92.89 Other specified places as the place of occurrence of the external cause; Y99.8 Other external cause status; Z79.899 Other long term (current) drug therapy
CPT/HCPCS: 36415; 70450; 71045; 74176; 80048; 80053; 80177; 80305; 80320; 81003; 83605; 83735; 83880; 84145; 84484; 85025; 87040; 87081; 93005; 96361; 96374; 96375; 97116; 97161; 97530; 99285; G0378; J2270; J2405; J2543; J3010; J7030; J8597

== ENCOUNTER 2019-06-12 18:46 | Emergency (ER) | payer MEDICARE, OTHER ==
[~2019-06-12] VITALS: Ht 180.3 cm; Wt 67.0 kg
[~2019-06-12 18:46] MED LIST changes: +ATEN-168 PO; -ATOR10TA70 PO; -CLON-529 PO; -DULO60CA65 PO; -ONDA4TAB6 PO; +OXYC-615 PO
--- NOTE | 2019-06-12 19:50 | NUR ---
STATES HIS ROOMMATE STOLE HIS METHADONE OVER 3 WEEKS AGO AND HE HAS NOT HAD ANY SINCE. HIS NECK HURTS, HIS LEFT ARM HURTS, AND HIS UPPER LEFT ABDOMEN HURTS AND THAT ALL SEEMS TO RADIATE TO THE LEFT SHOULDER/SIDE OF NECK AREA. HIS NECK WAS FUSED AROUND 6 YEARS AGO '[facility]' DID THE SURGERY, WHEN ASKED. HE SAID THAT SINCE YESTERDAY HE HAS HAD NAUSEA AND THIS PAIN STARTED. HE DOESN'T BELIEVE IT TO BE R/T THE METHADONE THAT HE HAS NOT BEEN TAKING, BECAUSE HE SAID THAT WAS SO LONG AGO THAT HE STOPPED IT. HE HAS NO IDEA WHAT COULD OF CAUSED THIS TO HAPPEN.
[2019-06-12] MEDS ORDERED: ondansetron/PF 4mg/2ml inj IV ONE (20:00)
[2019-06-12] MEDS ORDERED: aspirin 81mg tab.chew PO ONE (20:00)
[2019-06-12 20:35] LABS: BASOPHILS % (AUTO) 0.9 % (0-1); EOSINOPHILS # (AUTO) 0.2 X10'3 (0-0.9); EOSINOPHILS % (AUTO) 3.8 % (0-6); HEMATOCRIT 38.1 % (42.0-52.0); HEMOGLOBIN 12.6 g/dl (14.0-17.9); LYMPHOCYTES % (AUTO) 21.2 % (21-51); MEAN CORPUSCULAR HEMOGLOBIN 28.7 PG (27.0-31.0); MEAN CORPUSCULAR HGB CONC 33.1 g/dL (33.0-36.5); MEAN CORPUSCULAR VOLUME 86.9 FL (78-98); MEAN PLATELET VOLUME 8.8 FL (7.4-10.4); MONOCYTES # (AUTO) 0.5 X10'3 (0-0.9); MONOCYTES % (AUTO) 11.3 % (2-12); NEUTROPHILS % (AUTO) 62.8 % (42-75); PLATELET COUNT 189 X10'3 (140-440); RED BLOOD COUNT 4.38 X10'6 (4.70-6.10); RED CELL DISTRIBUTION WIDTH 16.4 % (11.5-14.5); WHITE BLOOD COUNT 4.8 X10'3 (4.5-11.0)
[2019-06-12 20:52] LABS: ALANINE AMINOTRANSFERASE 25 U/L (12-78); ALBUMIN 4.4 G/DL (3.4-5.0); ALBUMIN/GLOBULIN RATIO 1.1 (1.1-1.5); ALKALINE PHOSPHATASE 163 IU/L (46-116); ANION GAP 10 (8-16); ASPARTATE AMINO TRANSFERASE 17 U/L (10-37); BILIRUBIN,TOTAL 0.5 MG/DL (0.1-1.0); BLOOD UREA NITROGEN 20 MG/DL (7-18); BUN/CREATININE RATIO 12.5 (5.4-32.0); CALCIUM 9.8 MG/DL (8.5-10.1); CHLORIDE 103 MMOL/L (99-107); GLUCOSE 92 MG/DL (70-104); POTASSIUM 4.3 MMOL/L (3.5-5.1); SODIUM 138 MMOL/L (135-145); TOTAL CARBON DIOXIDE 25.4 MMOL/L (24-32); TOTAL PROTEIN 8.5 G/DL (6.4-8.2); eGFR 42 ML/MIN
[2019-06-12 21:00] LABS: MAGNESIUM 2.5 MG/DL (1.5-2.4)
[2019-06-12] MEDS ORDERED: normal saline 1000ML IV soln IVB ONE ×2 (21:00→22:05)
[2019-06-12] MEDS ORDERED: ketorolac tromethamine 15mg/ml inj. IV ONE (21:25)
[2019-06-12 22:58] VITALS: BP 134/78
--- NOTE | 2019-06-12 23:31 | NUR ---
CALL PLACED TO [facility] [place] [employer] [facility]
== END 2019-06-13 00:05 | disposition home or self-care (01) ==
LOC: ER 18:47
DX: R42 Dizziness and giddiness (principal); F45.8 Other somatoform disorders; I10 Essential (primary) hypertension; G89.29 Other chronic pain; Z79.899 Other long term (current) drug therapy
CPT/HCPCS: 36415; 70450; 71045; 72125; 80053; 83735; 83880; 84484; 85025; 96374; 96375; 99284; J1885; J2405; J7040; 96372

== ENCOUNTER 2019-07-20 15:33 | Emergency (ER) | payer MEDICARE ==
[~2019-07-20] VITALS: Ht 180.3 cm; Wt 74.0 kg
[2019-07-20 16:10] LABS: BASOPHILS # (AUTO) 0.1 X10'3 (0-0.2); BASOPHILS % (AUTO) 1.1 % (0-1); EOSINOPHILS # (AUTO) 0.3 X10'3 (0-0.9); EOSINOPHILS % (AUTO) 7.1 % (0-6); HEMATOCRIT 31.7 % (42.0-52.0); HEMOGLOBIN 10.4 g/dl (14.0-17.9); LYMPHOCYTES # (AUTO) 0.8 X10'3 (1.1-4.8); LYMPHOCYTES % (AUTO) 17.1 % (21-51); MEAN CORPUSCULAR HGB CONC 32.9 g/dL (33.0-36.5); MONOCYTES # (AUTO) 0.6 X10'3 (0-0.9); MONOCYTES % (AUTO) 12.7 % (2-12); NEUTROPHILS # (AUTO) 2.9 X10'3 (1.8-7.7); PLATELET COUNT 191 X10'3 (140-440); RED BLOOD COUNT 3.73 X10'6 (4.70-6.10); RED CELL DISTRIBUTION WIDTH 16.6 % (11.5-14.5); WHITE BLOOD COUNT 4.7 X10'3 (4.5-11.0)
[2019-07-20 16:26] LABS: PARTIAL THROMBOPLASTIN TIME 26 SECONDS (22-32)
[2019-07-20 16:47] VITALS: BP 119/84
[2019-07-20 17:01] LABS: ALBUMIN 3.8 G/DL (3.4-5.0); ANION GAP 13 (8-16); ASPARTATE AMINO TRANSFERASE 20 U/L (10-37); BILIRUBIN,TOTAL 0.3 MG/DL (0.1-1.0); BLOOD UREA NITROGEN 21 MG/DL (7-18); BUN/CREATININE RATIO 15.2 (5.4-32.0); CALCIUM 8.7 MG/DL (8.5-10.1); CHLORIDE 109 MMOL/L (99-107); CREATININE 1.38 MG/DL (0.60-1.10); GLUCOSE 103 MG/DL (70-104); POTASSIUM 4.3 MMOL/L (3.5-5.1); SODIUM 142 MMOL/L (135-145); TOTAL PROTEIN 7.5 G/DL (6.4-8.2); eGFR 50 ML/MIN
[2019-07-20 17:02] LABS: ALANINE AMINOTRANSFERASE 28 U/L (12-78); ALKALINE PHOSPHATASE 145 IU/L (46-116)
== END 2019-07-20 17:29 | disposition home or self-care (01) ==
LOC: ER 15:34
DX: R07.89 Other chest pain (principal); I10 Essential (primary) hypertension; G89.29 Other chronic pain; Z79.899 Other long term (current) drug therapy
CPT/HCPCS: 36415; 71045; 80053; 84484; 85025; 85610; 85730; 93005; 99284